=== PATIENT | male | born 1970 | race Caucasian/White ===

== ENCOUNTER 2018-07-22 18:29 | Emergency (ER) | payer OTHER, SELFPAY ==
[2018-07-22 18:57] VITALS: BP 137/84; PULSE 78; RESP 16; TEMP 36.6; O2SAT 99
[2018-07-22 19:24] LABS: Absolute Basophil Count 0.02 k/cumm (0.0-0.2); Absolute Eosinophil Count 0.16 k/cumm (0.0-0.7); Absolute Lymphocyte Count 0.74 k/cumm (1.2-3.4); Absolute Monocyte Count 0.66 k/cumm (0.11-0.7); Absolute Neutrophil Count 4.12 k/cumm (1.2-6.7); Basophils % 0.4; Eosinophils % 2.8; HCT 43.5 % (40.0-50.0); HGB 14.8 g/dL (13.5-17.5); Mean Corpuscular Hemoglobin 31.3 pg (27.0-33.0); Mean Platelet Volume 9.5 fL (8.0-11.0); Monocytes % 11.6; Neutrophils % 72.2; Platelet Count 221 x1000/uL (130-400); RBC 4.73 m/cumm (4.50-6.00); RBC Distribution Width 11.8 % (11.8-14.1)
--- NOTE | 2018-07-22 20:16 | ED.GENADUL ---
Disposition Clinical Impression: Thrombosed external hemorrhoid Disposition: HOME Condition: Stable Instructions: Hemorrhoids (ED) Additional Instructions: Take the oxycodone as needed and directed for pain. Use sitz bath as needed and directed. Take stool softeners as needed and directed. Follow-up with Dr. Polo in her office tomorrow morning at 730am for evaluation. Return to the emergency department with any worsening or new concerning symptoms. Prescriptions: Docusate Sodium [Colace] 100 mg PO BID PRN #12 cap PRN Reason: Referrals: Gris Polo MD [ [facility] STAFF PHYSICIAN] - Medical Decision Making - Lab Data Laboratory Tests 07/22/18 19:16 WBC 5.70 RBC 4.73 Hgb 14.8 Hct 43.5 MCV 92.0 MCH 31.3 MCHC 34.0 RDW 11.8 Plt Count 221 MPV 9.5 Immature Gran % 0.0 Neutrophils % 72.2 Lymphocytes % 13.0 Monocytes % 11.6 Eosinophils % 2.8 Basophils % 0.4 Absolute Neutrophils 4.12 Absolute Lymphocytes 0.74 L Absolute Monocytes 0.66 Absolute Eosinophils 0.16 Absolute Basophils 0.02 - Medical Decision Making 48 yo male status post incised hemorrhoid under local anesthesia today by Dr. Monk in the office who presents for return of hemorrhoid and worsening increase in size compared to prior to excision. Thrombosed external hemorrhoid noted which appears approximately 2 x 5 cm. There is no active bleeding. His abdomen is soft and nontender. His vitals are within normal limits. Case was discussed with Dr. Polo -she states it is unusual for a hemorrhoid to fill up again after being incised, but it could be possible or this is another hemorrhoid. Recommends sitz bath, stool softeners, pain control and will follow up with patient in the office tomorrow morning at 7:30 AM. We will also place patient on care management list to help arrange this appointment if needed. Patient was given a dose of oxycodone here and 2 tabs for home as well as prescription for oxycodone and Colace. Patient's chart noted an allergy to codeine which states was more GI upset. States he has no history of respiratory distress with codeine and he has never taken oxycodone or hydrocodone before. History of Present Illness - General Chief complaint: RashLesion Stated complaint: STATUS POST SURG TODAY/ROMERO Time Seen by Provider: 07/22/18 19:04 - History of Present Illness Initial comments: Patient is a 48-year-old male who presents for pain and swelling of hemorrhoid. Patient was seen by Dr. Monk the office today and had incision of hemorrhoid under local anesthesia. Patient states he went home and the hemorrhoid filled back up again and has worsening pain and is more swollen than from before incision. Patient denies vomiting, fever or abdominal pain. - Related Data Ibuprofen 3 tab PO Q4H PRN 02/21/16 Docusate Sodium [Colace] 100 mg PO BID PRN #12 cap 07/22/18 Acetaminophen [Tylenol] 650 mg PO Q4H PRN PRN tab 07/23/18 MetroNIDAZOLE [Flagyl] 500 mg PO TID #15 tab 07/23/18 Mineral Oil (Lax) [Mineral Oil] 30 ml PO DAILY #1 btl 07/23/18 OxyCODONE [Roxicodone] 5 mg PO Q6H PRN PRN #15 tab 07/23/18 Allergies Allergy/AdvReac Type Severity Reaction Status Date / Time codeine AdvReac Intermediate Nausea Unverified 07/23/18 07:55 meperidine HCl [From Demerol] AdvReac Intermediate Depression Unverified 07/23/18 07:55 Review of Systems Constitutional: denies: chills, fever Eyes: denies: eye pain ENT: denies: ear pain, dental pain Respiratory: denies: cough, shortness of breath Cardiovascular: denies: chest pain, dyspnea on exertion Gastrointestinal: other (Rectal pain). denies: abdominal pain, nausea, vomiting Genitourinary: denies: urgency, dysuria, frequency Musculoskeletal: denies: back pain Skin: denies: rash, lesions Neurological: denies: headache, weakness, numbness Past Medical History - Past Medical History Medical history: arthritis Surgical history: no surgical history - Social History Smoking status: never smoker Alcohol use: occasionally Drug use: none General Exam - General Limitations: no limitations General appearance: alert, in no apparent distress - Eye Eye exam: Present: EOMI - Respiratory Respiratory exam: Present: normal lung sounds bilaterally. Absent: respiratory distress, wheezes, rales, rhonchi, stridor - Cardiovascular Cardiovascular Exam: Present: regular rate, normal rhythm. Absent: bradycardia, tachycardia - GI/Abdominal GI/Abdominal exam: Present: soft, normal bowel sounds. Absent: distended, tenderness, guarding, rebound, rigid - Rectal Rectal exam: Present: other (Thrombosed external hemorrhoid approximately 2 x 5 cm noted. No active bleeding. No discharge.) - Neurological Exam Neurological exam: Present: alert, oriented X3 - Psychiatric Psychiatric exam: Present: normal affect - Skin Skin exam: Present: warm, dry, intact Course Vital Signs - 24 hr 07/22/18 18:57 Temperature 208.2 F H Pulse 78 Respiratory 16 Rate Blood Pressure 137/84 Pulse Oximetry 99
[2018-07-22] MEDS: oxyCODONE 5 MG TAB PO (20:19)
[2018-07-22] MEDS: oxyCODONE 5 MG TAB 10 MG PO (20:19)
--- NOTE | 2018-07-23 09:05 | PDOC.ERCMPRO ---
Care Management Progress Note 07/23-Dr. Chaidez requested assistance with a surgical f/u today for hemorroids. Referral faxed to [facility] this am.
--- NOTE | 2018-07-23 09:06 | CMPROGNOTE_ITS ---
Care Management Progress Note 07/23-Dr. Chaidez requested assistance with a surgical f/u today for hemorroids. Referral faxed to [facility] this am.
== END 2018-07-22 20:27 | disposition home or self-care (01) ==
PROVIDERS: Emergency Provider Physician Assistant
DX: K64.5 Perianal venous thrombosis (principal); Y84.8 Other medical procedures as the cause of abnormal reaction of the patient, or of later complication, without mention of misadventure at the time of the procedure
CPT/HCPCS: 36415; 99283; 85025

== ENCOUNTER 2018-07-23 07:35 | Day surgery (SDC) | payer OTHER, SELFPAY ==
[2018-07-23] VITALS (10 sets, daily range): BP systolic 111–122; BP diastolic 65–81; PULSE 56–91; RESP 7–16; TEMP 35.9–37.1; O2SAT 95–98
[2018-07-23] MEDS: Lactated Ringers 1,000 ML 30 ML IV (08:08)
[2018-07-23] MEDS: Lactated Ringers 1,000 ML 350 ML IV (08:41)
--- NOTE | 2018-07-23 09:27 | HEM_PTH ---
PATIENT: Jair Gruber LOC: [facility] U#:[id number] AGE/SX: 48/M ROOM: RE07/23/[address]: Vineet Lepe DO : 1970 BED: DIS: 07/23/2018 SPEC #: [id number] RECD: 07/23/18 12:43 STATUS: GREGORY REQ #: [id number] TWYLA: 07/23/18 09:[address]: Vineet Lepe DEPT: Surgical Specimen RECD BY: Angelika Hooper ENTERED: 07/23/18 12:45 SP TYPE: Hem OTHR DR: iSndy Avila APRN Tissues: 1 - HEMORRHOIDS Procedures: GROSS AND MICRO LEVEL 3 Comments: [id number]
[2018-07-23] MEDS: Bupivacaine 0.5% Pres-Free 30 ML VIAL (09:28)
--- NOTE | 2018-07-23 09:46 | PDOC.DSDIS_ITS ---
[facility] Discharge - Discharge Orders Referrals: Vineet Lepe DO [ [facility] STAFF PHYSICIAN] - 07/31/18 11:15 am Prescriptions: OxyCODONE [Roxicodone] 5 mg PO Q6H PRN PRN #15 tab PRN Reason: Pain MetroNIDAZOLE [Flagyl] 500 mg PO TID #15 tab Mineral Oil (Lax) [Mineral Oil] 30 ml PO DAILY #1 btl - Discharge Plan Activity:: see instructions Remove Dressings/Wound Care:: 24 hours Shower/Bathe:: 48 hours - Discharge Instructions Micromedex Instructions: Hemorrhoidectomy (DC)
--- NOTE | 2018-07-23 11:46 | ROE_ITS ---
REPORT OF OPERATIVE PROCEDURE DATE OF PROCEDURE July 23, 2018 PREOPERATIVE DIAGNOSIS Gangrenous thrombosed hemorrhoid. POSTOPERATIVE DIAGNOSIS Gangrenous thrombosed hemorrhoid. PROCEDURE Excision of gangrenous thrombosed hemorrhoid. SURGEON Vineet Lepe D.O. [employer] MA[employer]GER Adele Wooten PA-C ANESTHESIA Monitored Anesthesia Care by Hector Velarde C.R.N.A. with spinal anesthetic. ASA-II. Mallampati Class - 2. Local 1.3% Exparel with 0.5% Marcaine. ESTIMATED BLOOD LOSS 3 ml. SPECIMEN Hemorrhoid. INDICATIONS This is a 48-year-old male who presented to the Emergency Room on Sunday after three days of fairly constant anal pain that started on while he was straining on the toilet. He has had problems with hemorrhoids in the past, but had never had anything similar to this. He was found to have a thrombosed hemorrhoid and he was referred to Surgery. He was seen in the office, where I attempted to ameliorate his pain by incising the thrombosed hemorrhoid. We did have partial success with relief of pain, but overnight his pain became worse and the extent of thromboses seemed to be more than could be adequately treated in an office setting. It was recommended he go to Day Surgery for formal hemorrhoidectomy. The risks and benefits which were discussed with him, all of his questions were answered to his satisfaction and consent was obtained to proceed. FINDINGS A large hemorrhoid of the right anterior column was identified on examination under anesthesia, extending down from external to internal. It was subsequently excised. There was noted to be gangrene present. DESCRIPTION OF PROCEDURE The patient was brought to the preanesthesia area, identification confirmed, consent signed. He was then brought to the Operating Room. A spinal was placed by anesthesia, please see separate anesthesia report. He was then positioned prone jackknife, and sedation was titrated for effect. Appropriate timeout was taken reviewing the patient's identification, allergies, medications, and procedure. The gluteal cleft was using standard taping positioning. The perineum was then prepped with Betadine paint. Blocked draped in a standard sterile fashion. I began by performing a gentle digital rectal exam. I found only the current right anterior column thrombosed hemorrhoid. Clearly, there was a portion of the outer mucosa that had looked gangrene and necrosed due to the pressure. The hemorrhoid itself extended from mostly external component into the internal column. I then used a bullet anoscope to fully examine the anus and proximal rectum in relationship to the anus. I saw No other evidence of hemorrhoids beyond the thrombosed area. There is no significant extenuation of the internal hemorrhoid. I then proceeded to grasp the hemorrhoid with Allis clamp elevating this and then incised the skin around the base circumferentially. Once this was done, I then used a hand iConclude LigaSure to cauterize the subcutaneous tissue to limit bleeding. This left an elliptical defect approximately 4 centimeters long, extending from the anal verge down into the proximal rectum in about 1.5 cm width. I then used a #2-0 Chromic suture starting at the internal apex, sewed the defect closed to the external leaving a small portion of the external segment open for drainage. Once the wound was closed, I then injected Exparel mixed with 0.5% Marcaine circumferentially around the anus. The wound was then cleaned and I trimmed any hair surrounding the perineum to allow the area to be kept clean without matting of hair. The PeriPad was then placed and mesh underwear. The patient was awakened in the Operating Room and brought to the Postanesthesia Care Unit in good condition. There were no complications during the case. The patient tolerated it very well. All counts were reported as correct x2.
[2018-07-23] MEDS: Acetaminophen 325 MG TAB 650 MG PO (12:41)
== END 2018-07-23 13:21 | disposition home or self-care (01) ==
PROVIDERS: Visit Provider Surgery
DX: K64.5 Perianal venous thrombosis (principal); I96 Gangrene, not elsewhere classified
CPT/HCPCS: 46255; 88304; J2250; J2405; J3010

== ENCOUNTER 2021-01-20 02:19 | Outpatient (CLI) | payer BC, SELFPAY ==
--- NOTE | 2021-01-20 08:30 | DI.RAD_ITS ---
EXAM: XR ELBOW LT COMPLETE CLINICAL HISTORY: left elbow pain,M25.522. TECHNIQUE: 2D digital imaging was performed. COMPARISON: No exams were available for comparison FINDINGS: There is no evidence of fracture or joint effusion. No swelling of the olecranon bursa. Radial head appears unremarkable. Mild bilateral bony excrescences are seen it at the level of the epicondyles. May represent element of epicondylitis. Bone density is normal. No evidence of loose intra-articu lar body. IMPRESSION: DATA REPOSITORY: RADIATION DOSE DELIVERED:
== END 2021-01-20 02:20 ==
LOC: DI 02:20
DX: M25.522 Pain in left elbow (principal)
CPT/HCPCS: 73080

== ENCOUNTER 2021-06-06 13:14 | Outpatient (CLI) | payer BC, SELFPAY ==
--- NOTE | 2021-06-06 16:00 | DI.RAD_ITS ---
Exam(s) XR KNEE RT 3V AP,LAT,ADALGISA EXAM: XR KNEE RT 3V AP,LAT,ADALGISA CLINICAL HISTORY: right knee pain M25.561. TECHNIQUE: 2D digital imaging was performed. COMPARISON: No exams were available for comparison FINDINGS: BONES: No acute fracture is present. No bony destructive lesion is seen. Mild periarticular spurring. JOINTS: The knee is normally aligned. Moderate effusion. SOFT TISSUE: Unremarkable IMPRESSION: Joint effusion. Mild degenerative changes.. DATA REPOSITORY: RADIATION DOSE DELIVERED:
== END 2021-06-06 13:34 ==
PROVIDERS: Visit Provider Nurse Practitioner Family
DX: M25.561 Pain in right knee (principal); M25.461 Effusion, right knee; M17.11 Unilateral primary osteoarthritis, right knee
CPT/HCPCS: 73562

== ENCOUNTER 2021-09-20 00:20 | Outpatient (CLI) | payer BC, SELFPAY ==
--- NOTE | 2021-09-20 08:45 | DI.MRI_ITS ---
Exam(s) MR LOWER JOINT RT WO EXAM: MR LOWER JOINT RT WO CLINICAL HISTORY: Persistent pain, mechanical SYMPTOMS,INTERNAL DERANGEMENT RT KNEE, M23.91, TECHNIQUE: Multiplanar multisequence MRI of the knee was performed. COMPARISON: No exams were available for comparison FINDINGS: EFFUSION: There is a small knee joint effusion. There is no Rangel cyst in the popliteal fossa. MARROW:There is no evidence of fracture, bone contusion, nor osteochondral defects.. There are no si gnificant osseous lesions. PATELLOFEMORAL COMPARTMENT: The quadriceps tendon is intact. The patellar ligament is intact. There is no significant thinning of the retropatellar cartilage. No evidence of fissure nor signific ant chondral defect. No osteochondral defect at this level.There is no intraosseous signal to sugges t recent patellar dislocation. There are no patellar retinacular tears. CRUCIATE LIGAMENTS: The anterior cruciate ligament is intact.The posterior cruciate ligament is intac t. MEDIAL COMPARTMENT/MEDIAL MENISCUS: Oblique tear posterior horn medial meniscus. Anterior horn appea rs mildly extruded.. There are no chondral defects, osteochondral defects, subarticular marrow edema, nor osteophytes evid ent. MEDIAL COLLATERAL LIGAMENT: Intact LATERAL COMPARTMENT/LATERAL MENISCUS: There is no evidence of lateral meniscal tear.There are no lora dral defects, osteochondral defects, subarticular marrow edema, nor osteophytes evident. ILIOTIBIAL BAND: Intact LATERAL COLLATERAL LIGAMENT COMPLEX: The fibular collateral ligament is intact. The biceps femoris t endon is intact.Popliteus muscle and tendon are intact. IMPRESSION: 1. There is a tear of the posterior horn of the medial meniscus. There are no tears of the lateral m eniscus. 2. Cruciate and collateral ligaments are intact. 3. No abnormal intraosseous signal. 4. Small joint effusion. No Rangel cyst. DATA REPOSITORY:
--- NOTE | 2021-09-20 19:35 | DI.VRAD_ITS ---
PROCEDURE INFORMATION: Exam: MR Right Lower Extremity Joint Without Contrast, Knee Exam date and time: 09/20/2021 3:39 PM Age: 51 years old Clinical indication: Other: Persistent pain, mechanical symptoms, internal derangement RT knee TECHNIQUE: Imaging protocol: MR of the Right lower extremity joint without contrast. Exam focused on the knee. COMPARISON: CR XR KNEE RT 3V AP,LAT,ADALGISA 06/06/2021 4:31 PM FINDINGS: Bones and cartilage: Unremarkable. No bone marrow abnormalities. Articular cartilage intact. Joint spaces: Trace joint effusion. Medial meniscus: There is horizontal signal within the posterior horn of the medial meniscus which extends to the tibial articular surface at the posterior horn/body junction, compatible with a medial meniscal tear. Lateral meniscus: Unremarkable. No tear. Anterior cruciate ligament: Unremarkable. No tear. Posterior cruciate ligament: Unremarkable. No tear. Medial capsule and supporting structures: Unremarkable. No tear. Lateral capsule and supporting structures: Unremarkable. No tear. Extensor mechanism of knee: Unremarkable. No tear. Muscles: Unremarkable. Soft tissues: Unremarkable. IMPRESSION: Tear of the posterior horn of the medial meniscus. Dictated and Authenticated by: Vijay Sheth MD. Ordering:LIAT Hargrove MD
== END 2021-09-20 00:40 ==
PROVIDERS: Visit Provider Student in an Organized Health Care Education/Training Program
DX: M25.561 Pain in right knee (principal); M23.8X1 Other internal derangements of right knee; S83.241A Other tear of medial meniscus, current injury, right knee, initial encounter; M25.461 Effusion, right knee
CPT/HCPCS: 73721

== ENCOUNTER → 2021-09-26 22:16 | Outpatient (CLI) | payer OTHER, BC, SELFPAY ==
--- NOTE | 2021-09-26 16:00 | DI.RAD_ITS ---
Exam(s) XR HAND RT COMPLETE EXAM: XR HAND RT COMPLETE CLINICAL HISTORY: pain,swelling,decreased ROM/no trauma M79.641 PAIN RT HAND TECHNIQUE: COMPARISON: No exams were available for comparison FINDINGS: Three views were obtained. No bony or soft tissue abnormality is seen apart from minimal degenerativ e changes of the carpus and IP joints.. IMPRESSION: RADIATION DOSE DELIVERED: Total DLP
--- NOTE | 2021-09-26 16:00 | DI.RAD_ITS ---
Exam(s) XR WRIST RT COMPLETE EXAM: XR WRIST RT COMPLETE CLINICAL HISTORY: pain,swelling,decreased ROM/ no trauma M25.531 PAIN RT WRIST TECHNIQUE: COMPARISON: No exams were available for comparison FINDINGS: Three views were obtained. Carpal alignment appears within normal limits. No bony or soft tissue ab normality seen. IMPRESSION: RADIATION DOSE DELIVERED: Total DLP
--- NOTE | 2021-09-26 16:45 | DI.VRAD_ITS ---
PROCEDURE INFORMATION: Exam: XR Right Wrist Exam date and time: 09/26/2021 4:06 PM Age: 51 years old Clinical indication: Pain, swelling, decreased rom/no trauma m79.641 pain RT hand TECHNIQUE: Imaging protocol: XR Right wrist. Views: 3 or more views. COMPARISON: MRI R UPPER JOINT WO CONT 10/20/2014 3:33 PM FINDINGS: Bones/joints: No acute fracture. No dislocation. The alignment appears anatomic. No evidence of significant degenerative joint disease. Soft tissues: Normal. IMPRESSION: No acute findings. Dictated and Authenticated by: Jeanna Damian MD. Ordering:JUN Castillo MD
--- NOTE | 2021-09-26 16:54 | DI.VRAD_ITS ---
PROCEDURE INFORMATION: Exam: XR Right Hand Exam date and time: 09/26/2021 4:06 PM Age: 51 years old Clinical indication: Right; Patient HX: Pain, swelling, decreased rom/no trauma m79.641 pain RT hand TECHNIQUE: Imaging protocol: XR Right hand. Views: 3 or more views. COMPARISON: MRI R UPPER JOINT WO CONT 10/20/2014 3:33 PM FINDINGS: Bones/joints: Normal. Soft tissues: Normal. IMPRESSION: No acute findings. Dictated and Authenticated by: Jeanna Damian MD. Ordering:JUN Castillo MD
== END ==
PROVIDERS: Visit Provider Family Medicine
DX: M25.531 Pain in right wrist (principal); M79.641 Pain in right hand
CPT/HCPCS: 73110; 73130

== ENCOUNTER 2022-01-18 01:16 | Outpatient (CLI) | payer BC, SELFPAY ==
[2022-01-18 11:49] LABS: Source Nasal/Nares
[2022-01-18 16:03] LABS: COVID-19 PCR Negative (Negative)
== END 2022-01-18 01:17 | disposition home or self-care (01) ==
PROVIDERS: Visit Provider Student in an Organized Health Care Education/Training Program
DX: Z20.822 Contact with and (suspected) exposure to COVID-19 (principal)
CPT/HCPCS: 87635

== ENCOUNTER 2022-01-20 08:07 | Day surgery (SDC) | payer BC, SELFPAY ==
[2022-01-20] VITALS (8 sets, daily range): BP systolic 109–141; BP diastolic 72–96; PULSE 53–74; RESP 12–16; TEMP 36–36.5; O2SAT 96–100; BMI 23.6
[2022-01-20] MEDS: Lactated Ringers 1,000 ML 100 ML IV (08:54)
--- NOTE | 2022-01-20 09:37 | ANES.PREOP_ITS ---
General Info Date of Service Date Performed: 01/20/22 Height: 6 ft Weight: 79 kg Body Mass Index (BMI): 23.6 Surgical Procedure: Operation Date: 01/20/22 10:10 Proposed Procedure Side Surgeon p Knee Arthroscopy w/any indicated meniscal, chondral and synovial surgery Right Delvin Horowitz MD Meds Allergies and Home Medications Allergies Allergy/AdvReac Type Severity Reaction Status Date / Time codeine AdvReac Intermediate Nausea Verified 12/28/21 14:00 meperidine HCl [From Demerol] AdvReac Intermediate Depression Verified 12/28/21 14:00 Home Medication Medication Instructions Recorded bupropion HCl 300 mg 24 hr tablet, 300 mg PO QAM 10/10/18 extended release meloxicam 15 mg tablet 15 mg PO DAILY #30 tab 11/30/21 Current Visit Medications: Current Medications Generic Name Dose Route Start Last Admin Trade Name Freq PRN Reason Stop Dose Admin Ringer's Solution 1,000 mls @ 100 mls/hr 01/20/22 06:00 01/20/22 08:54 IV 02/18/22 23:59 100 mls/hr INFUSION SARAH Administration Cefazolin Sodium/Dextrose 2 gm in 50 mls @ 100 mls/hr 01/20/22 06:00 Ancef Duplex IVPB 01/20/22 16:00 PREOP SARAH IV Miscellaneous Supplies 1 each 01/20/22 06:00 Iv Access IV 02/18/22 23:59 DIRECTED SARAH Naproxen 250 - 500 mg 01/20/22 07:20 Naproxen 500 Mg Tab PO BID PRN PRN Oxycodone HCl 5 - 10 mg 01/20/22 07:20 Oxycodone 5 Mg Tab PO Q4H PRN PRN Sodium Chloride 0 ml 01/20/22 06:00 Normal Saline Flush 10 Ml Syr IV 02/18/22 23:59 PRN PRN Sodium Chloride 0 ml 01/20/22 06:00 Normal Saline 10 Ml Vial IJ 02/18/22 23:59 DIRECTED PRN Sterile Water 0 ml 01/20/22 06:00 Water,Injection,Sterile 10 Ml Vial IJ 02/18/22 23:59 DIRECTED PRN PFSH Active Problems Active Problems: Problem Status Onset Code Dermatitis 01/17/18 L30.9 Depression F32.9 Right ankle pain M25.571 Left elbow pain M25.522 Pain in right hand M79.641 Pain in right wrist M25.531 Carpal tunnel syndrome of right wrist G56.01 Trigger finger of right hand M65.30 Acute medial meniscus tear of right knee ~05/2021 S83.241A Medical History Medical History PTSD (post-traumatic stress disorder) Medical History Comments:: Gold fillings in upper teeth. Pt reports getting a headache with anesthesia Surgical History Surgical History Hemorrhoidectomy (07/23/18) thrombosed,gangrenous History of incision and drainage right hand History of open reduction and internal fixation (ORIF) procedure right middle finger Tobacco Smoking/Tobacco Use Status: Former Tobacco Use Passive smoking exposure: Yes Alcohol Alcohol Intake: current Alcohol intake frequency: holidays/special occasions only Alcohol type: hard liquor Substance Use Substance use: Never Substance use type: does not use Vital Signs and Lab Results Vital Signs Most Recent Vital Signs in EMR: Most Recent Vital Signs Temp Pulse Resp BP Pulse Ox 36.4 C L 74 16 112/82 99 01/20/22 08:18 01/20/22 08:18 01/20/22 08:18 01/20/22 08:18 01/20/22 08:18 Lab Results Blood Type / Crossmatch: No Data to Display Complete Blood Count: No Data to Display Complete Metabolic Panel: No Data to Display Liver Function Panel: No Data to Display Coagulation Panel: No Data to Display Cardiac Panel: No Data to Display Arterial Blood Gas: No Data to Display Venous Blood Gas: No Data to Display Pancreas Panel: 2 No Data to Display Thyroid Panel: No Data to Display Infectious Disease: Coronavirus (COVID-19)(PCR) Negative (Negative) 01/18/22 08:37 01/18/22 Coronavirus 2019 Source Nasal/Nares 01/18/22 08:37 01/18/22 Blood Cultures: No Data to Display Toxicology Panel: No Data to Display Anesthesia Assessment and Plan Anesthesia History Personal History: Other (Headache) Family History: No Family History of Anesthesia Complications Exercise Tolerance Exercise Tolerance: Metabolic Equivalents>4 Pertinent Negatives Pertinent Negatives: No Symptoms of GERD, No Major Cardiovascular Symptoms or Complaints and No Major Pulmonary Symptoms or Complaints Cardiac & Pulmonary Exam Cardiac Exam: Normal S1/S2 Heart Sounds Pulmonary Exam: Clear Bilateral Breath Sounds Implantable Cardiac Device Does patient have a Pacemaker or an ICD?: No Airway Exam Known Difficult Airway: No Mallampati Class: 3 Mouth Opening: Normal (> 3cm) Thyromental Distance: Greater than 3 cm Facial Hair: Full Bains Neck Range of Motion: Full ROM Neck Circumference: Normal Teeth Condition: Normal Dentition ASA Classification ASA Score: ASA 2 Emergency Case?: No NPO Status NPO Status: NPO Clears >2 hours, Solids >8 hours Anesthesia Plan Resuscitation Status: Full Code Anesthesia Technique: General Anesthesia Airway Planned: LMA Monitors Used: Standard Monitors
[2022-01-20] MEDS: ceFAZolin 2 GM/50 ML BAG IVPB (10:15)
[2022-01-20] MEDS: MORPHine 4 MG/ML SYR (10:41)
[2022-01-20] MEDS: Bupivacaine 0.25% Pres-Free 30 ML VIAL (10:41)
--- NOTE | 2022-01-20 11:22 | W.PM.DSUDISC ---
Discharge Plan Disposition Patient Disposition: HOME Condition: Stable Discharge Details Reason For Visit: Right knee surgery Attending Provider: Delvin Horowitz Primary Care Provider: Sindy Avila Home Meds and New Rx's Prescriptions: New naproxen 250 mg tablet 250 - 500 mg PO BID PRNQty: 40 0RF Rx Instructions: take with a meal aspirin 81 mg tablet,delayed release (DR/EC) 81 mg PO DAILY 14 Days Qty: 14 0RF oxycodone 5 mg tablet 5 - 10 mg PO Q4H MDD 30 mg PRN (Reason: moderate to severe pain) Qty: 18 0RF Continued bupropion HCl 300 mg tablet extended release 24 hr 300 mg PO QAM 0RF meloxicam 15 mg tablet 15 mg PO DAILY Qty: 30 6RF Discharge Instructions Additional Instructions: Surgery: Right knee arthroscopy with partial medial & lateral meniscectomy and synovectomy Activity: Weightbearing as tolerated. Advance range of motion as comfort allows. No knee brace or crutches needed as soon as comfortable. Recommend avoiding sports, pivoting, and squatting for 6-8 weeks. A physical therapy prescription will be sent electronically to start in about 3 weeks. Prescriptions: Aspirin 81 mg take 1 daily to prevent a blood clot for 14 days Naproxen 250 mg take 1-2 every 12 hours with a meal as needed for moderate pain Oxycodone 5 mg take 1-2 every 4-6 hours as needed for severe pain You may use [id number] Tylenol (acetaminophen) as needed for mild pain. These pain medications may be taken all at once or in different combinations as needed. Also, recommend Colace (docusate) as a stool softener as surgery and pain medicine cause constipation. Dressings: Leave dressing in place for 3 days. May then remove and leave open to air or cover incisions with Band-Aids. May shower after 5 days. Follow-up: 10-[address] Horowitz Let us know right away if you develop any redness, drainage, fevers, chest pain, or trouble breathing. Do not drink alcohol or drive for at least 24 hours after anesthesia. Please call the office during business hours with any questions or concerns. Referrals: Delvin Horowitz MD [ [facility] STAFF PHYSICIAN] - Discharge Orders Discharge Orders: Discharge Order (Routine); Ordered 01/20/22 Ordered By: Delvin Horowitz DS: Diagnosis Discharge Diagnosis (1) Acute medial meniscus tear of right knee: Status: Acute
--- NOTE | 2022-01-20 11:26 | W.PM.OP ---
Date of service: 01/20/22 Time of Service: 09:55 Operative Note Operative Note DATE OF PROCEDURE: 01/20/22 PRE-OP DIAGNOSIS: Right knee 1. Medial meniscus tear POST-OP DIAGNOSIS: same Right knee 1. Medial meniscus tear 2. Synovitis PROCEDURE: Right knee 1. Partial medial & lateral meniscectomy, CPT #82074 2. Greater than 2 compartment synovectomy, CPT #61045: Anteromedial, anterolateral, intercondylar, and patellofemoral SURGEON: Delvin Horowitz SUPERVISOR [place]: None None ANESTHESIA TYPE: Local By Surgeon and General LMA/ETT Refer to Anesthesia Record PATHOLOGY: none sent TOURNIQUET TIME: 0 COMPLICATIONS: None Patient was transported to: PACU Patient's condition: stable Indications: Please see complete medical record for details. Findings: Exam under anesthesia: Full range of motion with hyperextension and no instability Arthroscopic findings: Significant synovitis anteromedial, anterolateral, intercondylar, and patellofemoral. Mild to moderate chondromalacia distal lateral aspect medial femoral condyle. Parrot-beak type displaced posterior horn medial meniscus tear without significant root involvement. Some extension into the posterior horn and at the posterior horn body junction into the white-red zone. Moderate fraying posterior horn lateral meniscus tear. Procedure Description: In the operating room, genral anesthesia was induced. The patient was positioned supine on the operating room table. All bony prominences were well-padded. Preoperative antibiotics were administered. The knee was prepped and draped in the usual sterile fashion. The correct patient, procedure, and side of the procedure were all verified prior to incision. Exam under anesthesia was performed. 10 cc of 0.25% bupivacaine and 1.5% lidocaine with epinephrine was infiltrated about the planned anteromedial and anterolateral knee arthroscopy portals. The portals were established and a complete diagnostic arthroscopy was performed with relevant findings detailed above. The mechanical shaver was used to remove abundant pathologic synovium from the anteromedial, anterolateral, intercondylar, and patellofemoral compartments. Using a combination of hand instruments including meniscal biters and a power shaver and working through the anteromedial and anterolateral compartments the posterior horn medial meniscus meniscus was debrided of all torn tissue to a stable margin. Care was taken to preserve as much meniscus tissue was possible. The meniscal remnant was probed and found to have a stable margin, stable root, and no other tears. The shaver was all that was needed to debride the posterior lateral meniscus fraying and tearing to a stable margin as well. Under direct arthroscopic visualization an 18-gauge needle was passed into the knee from superolateral into the suprapatellar pouch. The knee was copiously irrigated with arthroscopic fluid until there was a clear effluent before being drained of all fluid. The anteromedial and anterolateral portals were closed in 3-0 Monocryl in a buried interrupted fashion. 20 cc of 0.25% bupivacaine with epinephrine containing 4 mg of morphine was infiltrated into the knee through the previously placed needle. Mastisol, Steri-Strips, and 4 x 4 gauze were applied over the incisions followed by sterile soft roll. The knee was then wrapped gently with an GUSTAVO comressive bandage. The patient awoke from anesthesia without complication and was transferred to the recovery room in a stable condition.
[2022-01-20] MEDS: fentaNYL 100 MCG/2 ML VIAL IVP ×3 (11:55→12:05)
--- NOTE | 2022-01-20 13:14 | W.ANESPOSTOP ---
Postoperative Evaluation Date, Time and Location Date Performed: 01/20/22 Time Performed: 13:14 Patient Location: Day Surgery Unit Vital Signs Most Recent Imported Vital Signs: Most Recent Vital Signs Temp Pulse Resp BP Pulse Ox 36 C L 66 16 109/75 97 01/20/22 12:58 01/20/22 12:58 01/20/22 12:58 01/20/22 12:58 01/20/22 12:58 Pain Score Most Recent Pain Score: Most Recent Pain Score Pain Level 3 01/20/22 12:58 Assessment Mental Status: Awake (Alert & Oriented to Patient Baseline) Airway and Respiratory Function: Patent airway with normal (patient baseline) respiratory exam Cardiovascular Function: Hemodynamically Stable Hydration Status: Adequately Hydrated Nausea & Vomiting: No Nausea or Vomiting Pain: Pain is tolerable per patient Peripheral Nerve Block: Patient did not receive a nerve block
== END 2022-01-20 13:50 | disposition home or self-care (01) ==
LOC: SUR 08:07
PROVIDERS: Visit Provider Student in an Organized Health Care Education/Training Program
PROC: (CPT 29870; principal; 2022-01-20 10:00)
DX: S83.241A Other tear of medial meniscus, current injury, right knee, initial encounter (principal); S83.281A Other tear of lateral meniscus, current injury, right knee, initial encounter; X58.XXXA Exposure to other specified factors, initial encounter; M94.261 Chondromalacia, right knee; M65.861 Other synovitis and tenosynovitis, right lower leg
CPT/HCPCS: 29876; 29880; J0690; J1100; J1885; J2270; J2405; J2704; J3010

== ENCOUNTER 2022-04-07 11:53 | Day surgery (SDC) | payer BC, SELFPAY ==
--- NOTE | 2022-04-06 16:44 | COLE_ITS ---
Colonoscopy Report Date of procedure: 04/07/22 Pre-op diagnosis general: Screening Post-op diagnosis procedure note: other (diverticula) Surgeon: Adele Kurtz Anesthesia Type: General:No Airway Estimated blood loss (mL): 0 Pathology: none sent Complications: None Disposition: same day Prep: Miralax/Dulcolax Retraction Time: 8 Procedure Description: After informed consent was obtained the patient was taken to the procedure room and placed in a left decubitous position. Monitors were applied and a time out was done. The patients name, date of , procedure, allergies to medications and metal in their body was reviewed. The patient was then sedated. Once sedate d and comfortable a rectal exam was done. External exam was normal. Internal exam revealed a normal sphincter tone and no palpable masses. The prostate nl. The scope was then introduced and retrofelexed. No internal hemorrhoids were identified. The scope was then advanced to the cecum w/out difficulty. The TI and appendiceal orifice were identified. The prep was be BPS 3 in all segments for a total of 9 the scope was then slowly retracted over 8 minutes back into the rectum. He had very minor disease confined to the sigmoid colon. The mucosa is otherwise pink and healthy with a normal vascular pattern. Scope was removed and the patient was woken up and taken back to Same day surgery in stable condition. The patient tolerated the procedure well and there were no immediate co mplications. Follow up: The patient should follow up in 10 years unless they develop changes in bowel habits or other new gastrointestinal complaints.
--- NOTE | 2022-04-06 16:44 | PDOC.DSDIS_ITS ---
Discharge Plan Disposition Patient Disposition: HOME Condition: Good Discharge Details Reason For Visit: Colon cancer screening Attending Provider: Adele Kurtz Primary Care Provider: Sindy Avila Home Meds and New Rx's Prescriptions: Continued bupropion HCl 300 mg tablet extended release 24 hr 300 mg PO QAM ascorbic acid (vitamin C) 500 mg tablet 1,000 mg PO DAILY meloxicam 15 mg tablet 15 mg PO DAILY Qty: 90 2RF Discontinued polyethylene glycol 3350 17 gram/dose powder 238 g PO ONCE Qty: 238 0RF Rx Instructions: take per colonoscopy instructions bisacodyl [Dulcolax (bisacodyl)] 5 mg tablet,delayed release (DR/EC) 5 mg PO ONCE Qty: 4 0RF Rx Instructions: take per colonoscopy instructions Discharge Instructions Additional Instructions: [facility] Colonoscopy Post- Op Instructions Instructions for Everyone who is given Anesthesia: For your safety, please do the following for the next twenty-four (24) hours: *Do Not operate a motor vehicle (car, truck, motorcycle, etc.) *Do Not drink alcoholic beverages or use any recreational drugs for the first 24 hours or while taking pain medications. The medications in your body may have a reaction that can be dangerous. *Do Not make any important decisions or sign any important papers. Findings: small polyps Follow up: My office will send you a letter in 2 to 3 weeks time, detailing as to what type of polyps they are, and when we want you to repeat the colonoscopy. 1. No lifting over 20 pounds or strenuous activity for the first 24 hours after your procedure. After 24 hours there are no restrictions on your activity but you may feel fatigued for a few days. 2. After you arrive home you may have a light meal and return to your normal diet as you can tolerate it without feeling sick to your stomach. 3. You may have a bloated, gaseous feeling in your belly (abdomen) after a col onoscopy. Passing gas and belching will help. Walking or lying down on your left side with your knees flexed may relieve the discomfort. Call the office at [phone] (Office) or [phone] (Hospital) right away if you notice any of the following: a.Vomiting of blood or ?coffee ground stools?. b.Rectal bleeding 1Tbsp, blood clots or continuous bleeding. c.Severe belly (abdominal) pain. d.A hard distended belly (abdomen) and an inability to pass gas. 4. Please don?t expect to have a normal BM (bowel movement) for 2-3 days after your procedure. 5. If there are questions regarding the findings of your procedure, please contact your doctor 6. If you are unable to contact your doctor with a problem, contact the hospital at [phone]. 7. Continue all your regular medications unless directed otherwise. I understand the above instructions and have no questions. Signature of Patient or Adult Escort Name of Responsible Adult Escort Signature of Nurse Date/Time Activity:: See above Diet:: See above Discharge Orders Discharge Orders: Discharge Order (Routine); Ordered 04/06/22 Ordered By: Adele Kurtz
[2022-04-07 12:03] VITALS: BP 116/86; PULSE 73; RESP 18; TEMP 36.6; O2SAT 97
--- NOTE | 2022-04-07 12:14 | W.ANESPRE ---
General Info Date of Service Date Performed: 04/07/22 Height: 5 ft 11 in Weight: 77.5 kg Body Mass Index (BMI): 23.8 Surgical Procedure: Operation Date: 04/07/22 13:05 Proposed Procedure Side Surgeon sakina Kurtz, DO Meds Allergies and Home Medications Allergies Allergy/AdvReac Type Severity Reaction Status Date / Time codeine AdvReac Intermediate Nausea Verified 04/07/22 12:14 meperidine HCl [From Demerol] AdvReac Intermediate Depression Verified 04/07/22 12:14 Home Medication Medication Instructions Recorded bupropion HCl 300 mg 24 hr tablet, 300 mg PO QAM 10/10/18 extended release meloxicam 15 mg tablet 15 mg PO DAILY #90 tabs 02/07/22 ascorbic acid (vitamin C) 500 mg 1,000 mg PO DAILY 03/24/22 tablet Current Visit Medications: Current Medications Generic Name Dose Route Start Last Admin Trade Name Freq PRN Reason Stop Dose Admin Ringer's Solution 1,000 mls @ 80 mls/hr 04/07/22 06:00 IV 05/06/22 23:59 INFUSION SARAH IV Miscellaneous Supplies 1 each 04/07/22 06:00 Iv Access IV 05/06/22 23:59 DIRECTED SARAH Ondansetron HCl 4 mg 04/06/22 16:32 Ondansetron 4 Mg/2 Ml Vial IVP Q4H PRN PRN Nausea / Vomiting Sodium Chloride 0 ml 04/07/22 06:00 Normal Saline Flush 10 Ml Syr IV 05/06/22 23:59 PRN PRN Sodium Chloride 0 ml 04/07/22 06:00 Normal Saline 10 Ml Vial IJ 05/06/22 23:59 DIRECTED PRN Sterile Water 0 ml 04/07/22 06:00 Water,Injection,Sterile 10 Ml Vial IJ 05/06/22 23:59 DIRECTED PRN PFSH Active Problems Active Problems: Problem Status Onset Code Dermatitis 01/17/18 L30.9 Depression F32.9 Right ankle pain M25.571 Left elbow pain M25.522 Pain in right hand M79.641 Pain in right wrist M25.531 Carpal tunnel syndrome of right wrist G56.01 Trigger finger of right hand M65.30 Acute medial meniscus tear of right knee ~05/2021 S83.241A Medical History Medical History History of broken leg PTSD (post-traumatic stress disorder) Per pt. announce self if patient is asleep before touching Medical History Comments:: Gold fillings in upper teeth. Pt reports getting a headache with anesthesia Surgical History Surgical History Hemorrhoidectomy (07/23/18) thrombosed,gangrenous History of incision and drainage right hand History of open reduction and internal fixation (ORIF) procedure right middle finger Tobacco Smoking/Tobacco Use Status: Former Tobacco Use Passive smoking exposure: Yes Alcohol Alcohol Intake: current Alcohol intake frequency: holidays/special occasions only Alcohol type: hard liquor Substance Use Substance use: Never Substance use type: does not use Vital Signs and Lab Results Vital Signs Most Recent Vital Signs in EMR: Most Recent Vital Signs Temp Pulse Resp BP Pulse Ox 36.6 C 73 18 116/86 97 04/07/22 12:03 04/07/22 12:03 04/07/22 12:03 04/07/22 12:03 04/07/22 12:03 Lab Results Blood Type / Crossmatch: No Data to Display Complete Blood Count: No Data to Display Complete Metabolic Panel: No Data to Display Liver Function Panel: No Data to Display Coagulation Panel: No Data to Display Cardiac Panel: No Data to Display Arterial Blood Gas: No Data to Display Venous Blood Gas: No Data to Display Pancreas Panel: No Data to Display Thyroid Panel: No Data to Display Infectious Disease: No Data to Display Blood Cultures: No Data to Display Toxicology Panel: No Data to Display Anesthesia Assessment and Plan Anesthesia History Personal History: No History of Anesthesia Complications Family History: No Family History of Anesthesia Complications Exercise Tolerance Exercise Tolerance: Metabolic Equivalents>4 Cardiac & Pulmonary Exam Cardiac Exam: Normal S1/S2 Heart Sounds Pulmonary Exam: Clear Bilateral Breath Sounds Implantable Cardiac Device Does patient have a Pacemaker or an ICD?: No Airway Exam Known Difficult Airway: No Mallampati Class: 3 Mouth Opening: Normal (> 3cm) Thyromental Distance: Greater than 3 cm Neck Range of Motion: Full ROM Neck Circumference: Normal Teeth Condition: Normal Dentition ASA Classification ASA Score: ASA 2 Emergency Case?: No NPO Status NPO Status: NPO Clears >2 hours, Solids >8 hours Anesthesia Plan Resuscitation Status: Full Code Anesthesia Technique: General Anesthesia Airway Planned: Natural Airway Monitors Used: Standard Monitors Preoperative Comments:: 52 yo male for screening colonoscopy. Sig PMHx: PTSD, former smoker, occ EtOH. Previous Anes: LMA 5 states extremely sore throat for 4 days.
[2022-04-07 12:21] VITALS: BMI 23.8
[2022-04-07] MEDS: Lactated Ringers 1,000 ML 80 ML IV (12:22)
[2022-04-07 13:42] VITALS: BP 97/68; PULSE 71; RESP 94; TEMP 36.9; O2SAT 94
--- NOTE | 2022-04-07 13:53 | W.ANESPOSTOP ---
Postoperative Evaluation Date, Time and Location Date Performed: 04/07/22 Time Performed: 12:54 Patient Location: Day Surgery Unit Vital Signs Most Recent Imported Vital Signs: Most Recent Vital Signs Temp Pulse Resp BP Pulse Ox 36.9 C 71 94 H 97/68 L 94 04/07/22 13:42 04/07/22 13:42 04/07/22 13:42 04/07/22 13:42 04/07/22 13:42 Pain Score Most Recent Pain Score: Most Recent Pain Score Pain Level 0 04/07/22 12:03 Assessment Mental Status: Awake (Alert & Oriented to Patient Baseline) Airway and Respiratory Function: Patent airway with normal (patient baseline) respiratory exam Cardiovascular Function: Hemodynamically Stable Hydration Status: Adequately Hydrated Nausea & Vomiting: No Nausea or Vomiting Pain: Pt. Denies Any Pain Peripheral Nerve Block: Patient did not receive a nerve block
[2022-04-07 14:02] VITALS: BP 103/72; PULSE 60; RESP 17; TEMP 36.6; O2SAT 96
== END 2022-04-07 14:40 | disposition home or self-care (01) ==
PROVIDERS: Visit Provider Surgery
PROC: 0DJD8ZZ Inspection of Lower Intestinal Tract, Via Natural or Artificial Opening Endoscopic (ICD-10-PCS; CPT 45378; principal; 2022-04-07 13:00)
DX: Z12.11 Encounter for screening for malignant neoplasm of colon (principal); F43.10 Post-traumatic stress disorder, unspecified; Z87.891 Personal history of nicotine dependence
CPT/HCPCS: 45378

== ENCOUNTER 2022-04-30 11:11 | Emergency (ER) | payer BC, SELFPAY ==
[2022-04-30 11:17] VITALS: BP 145/83; PULSE 54; RESP 16; TEMP 36.4; O2SAT 99
--- NOTE | 2022-04-30 11:27 | ED.GENADUL_ITS ---
Discharge Plan Disposition Patient Disposition: HOME Condition: Stable Discharge Details Clinical Impression: Left ureteral stone Primary Care Provider: Sindy Avila ED Provider: Mariaelena Chaidez Home Meds and New Rx's Prescriptions: New tamsulosin [Flomax] 0.4 mg capsule 0.4 mg PO DAILY Qty: 10 0RF ondansetron 4 mg tablet,disintegrating 4 mg PO TID PRN (Reason: nausea and vomiting) Qty: 6 0RF oxycodone 5 mg tablet 5 mg PO Q6H PRN (Reason: pain) Qty: 10 0RF Continued bupropion HCl 300 mg tablet extended release 24 hr 300 mg PO QAM ascorbic acid (vitamin C) 500 mg tablet 1,000 mg PO DAILY meloxicam 15 mg tablet 15 mg PO DAILY Qty: 90 2RF Discharge Instructions Instructions: Kidney Stones (ED), How to Strain Your Urine (ED) Additional Instructions: Your CT scan today showed evidence of a 2 mm kidney stone located near your bladder. You are being sent home with a strainer to strain your urine to observe for passage of your stone. Drink plenty of fluids and get plenty of rest. Prescriptions for Flomax, oxycodone and Zofran were sent electronically to your pharmacy. Take Flomax daily as directed. Take the Zofran as needed and directed for nausea and vomiting. Alternate tylenol and motrin as needed and directed for pain. Take the oxycodone for pain not relieved with Tylenol or Motrin. You have been placed on urology follow-up list for reevaluation of your kidney stones. Return immediately to the emergency department if you develop any worsening or new concerning symptoms such as fever, difficulty urinating, worsening pain or any other concerns. Referrals: Derek Koo MD [ [facility] STAFF PHYSICIAN] - Discharge Data Discharge Date/Time-TO BE ENTERED AT DEPARTURE: 04/30/22 15:25 Discharge Physician: Mariaelena Chaidez Medical Decision Making 1130 -- 52-year-old male with a history of kidney stones presents with diffuse burning abdominal pain, worse in the suprapubic region with urinary urgency and frequency that started a few hours ago. Patient appears uncomfortable but nontoxic. He is afebrile. His abdomen is diffusely tender extending from the epigastrium down to the suprapubic region. He has bilateral testicular tenderness without edema or ecchymosis. No genital lesions noted. He has no rigidity or guarding. Differential diagnosis includes kidney stone, UTI, pyelonephritis. We will place an IV, bolus IV fluids, screening labs, urinalysis, CT renal colic and give a dose of IV Dilaudid and IV Zofran and reassess. This patient was evaluated during a time of global shortage of iodinated contrast media. Based on guidance from the [employer], best practices, and local institutional approaches, an alternative path for evaluating and managing the patient may have been employed in order to provide optimal care during this shortage. The current situation has been discussed with the patient. 1300 --patient reassessed and his pain is slightly improved but still present and with nausea. CT imaging notes a 2 mm stone with mild hydroureteronephrosis. We will give another liter IV fluids, Dilaudid and Toradol IV and a dose of Phenergan and reassess. 1430 --patient feels much better and feels good to go home. We will send with oxycodone 4 tab bottle in addition to prescriptions for Flomax, Zofran and oxycodone. He was placed on urology follow-up list. Usual and customary return precautions given prior to discharge. Medical Records Medical records reviewed: Yes I reviewed the patient's medical records. Imaging Data Radiologic Study: Radiologist's impression: CT Abdomen And Pelvis Without Contrast Exam date and time: 04/30/2022 12:08 PM Age: 52 years old Clinical indication: Other: Difficulty urinating, diffuse abd pain R/O renal stone, pyelonephritis TECHNIQUE: Imaging protocol: Computed tomography of the abdomen and pelvis without contrast. COMPARISON: None provided. FINDINGS: Limitations: Evaluation of the solid and vascular structures is somewhat limited by lack of IV contrast. Lungs: The visualized lung bases demonstrate minor dependent atelectasis. Diaphragm: There is a small hiatal hernia. Liver: Grossly unremarkable. Gallbladder and bile ducts: No gallstones are evident, but ultrasound would be more sensitive. No gross biliary ductal dilatation. Pancreas: Grossly unremarkable. Spleen: Grossly unremarkable. Adrenal glands: Grossly unremarkable. Kidneys and ureters: Mild left-sided hydroureteronephrosis secondary to a 2 x 2 x 2 mm stone at the left ureterovesical junction, with considerable associated anterior perinephric and periureteral stranding and confluent fluid. The left kidney contains additional nonobstructing stones measuring up to 4 mm. There is no right-sided hydronephrosis or stone. Stomach and bowel: The unopacified small bowel is not significantly distended to suggest obstruction. The large bowel is grossly unremarkable in appearance. Appendix: The appendix is not identified, but there are no inflammatory changes in its expected region. Intraperitoneal space: No free air or significant free fluid. Vasculature: Unremarkable. No abdominal aortic aneurysm. Lymph nodes: No gross pathologic lymphadenopathy. Urinary bladder: Grossly unremarkable. Reproductive: Unremarkable as visualized. Bones/joints: Degenerative changes involve the spine and hips. Soft tissues: Unremarkable. IMPRESSION: 1. Mild left-sided hydroureteronephrosis secondary to a 2 x 2 x 2 mm stone at the left ureterovesical junction, with considerable associated anterior perinephric and periureteral stranding and confluent fluid. 2. Additional nonobstructing left nephrolithiasis. 3. Small hiatal hernia. Lab Data Lab results reviewed: Yes I reviewed the patient's lab results. Labs: Laboratory Tests Range/Units 04/30/22 04/30/22 04/30/22 11:25 11:38 11:38 WBC (4.4-10.8) 10^3/uL 4.82 RBC (4.36-5.78) 10^6/uL 4.91 Hgb (13.5-17.5) g/dL 15.1 Hct (40.0-50.0) % 45.0 MCV (80-95) fL 92 MCH (27.0-33.0) pg 30.8 MCHC (32.0-36.0) % 33.6 RDW (11.8-14.1) % 11.6 L Plt Count (130-400) 10^3/uL 257 MPV (8.0-11.0) fL 9.3 Immature Gran % 0.2 Neutrophils % 69.8 Lymphocytes % 17.2 Monocytes % 8.9 Eosinophils % 3.1 Basophils % 0.8 Nucleated RBC % (0.0-0.3) % 0.0 Absolute Neutrophils (1.2-6.7) 10^3/uL 3.36 Absolute Lymphocytes (1.2-3.4) 10^3/uL 0.83 L Absolute Monocytes (0.1-0.8) 10^3/uL 0.43 Absolute Eosinophils (0.0-0.7) 10^3/uL 0.15 Absolute Basophils (0.0-0.2) 10^3/uL 0.04 Sodium (136-145) mmol/L 141 Potassium (3.5-5.1) mmol/L 3.8 Chloride (98-107) mmol/L 105 Carbon Dioxide (21.0-32.0) mmol/L 31.8 Anion Gap (3-11) mmol/L 4.2 BUN (7-18) mg/dL 14 Creatinine (0.70-1.30) mg/dL 1.2 Estimated GFR/1.73 m2 (mL/min/1.73m2) >= 60.00 Glucose (74-106) mg/dL 138 H Calcium (8.5-10.1) mg/dL 8.8 Total Bilirubin (0.2-1.0) mg/dL 0.7 AST (15-37) U/L 19 ALT (16-63) U/L 15 L Alkaline Phosphatase (46-116) U/L 112 Total Protein (6.4-8.2) g/dL 7.2 Albumin (3.4-5.0) g/dL 4.0 Urine Color (Yellow) Yellow Urine Clarity (Clear) Cloudy Urine pH (5-8) 8.5 H Ur Specific Eidson (1.005-1.025) 1.020 Urine Protein (Negative) mg/dL Trace H Urine Ketones (Negative) mg/dL Negative Urine Blood (Negative) Trace-intact H Urine Nitrite (Negative) Negative Urine Bilirubin (Negative) Negative Urine Urobilinogen (Up TO 0.2) EU/dL 1.0 H Ur Leukocyte Esterase (Negative) Negative Urine RBC (0-2) HPF Negative Urine WBC (0-5) HPF 0-2 Ur Epithelial Cells (Negative) HPF Negative Urine Crystals (Negative) HPF Moderate Amorphous Urine Bacteria (Negative) HPF Few Urine Casts (Negative) LPF Negative Urine Mucus (Negative) Negative Ur Culture Indicated? No Urine Glucose (Negative) mg/dL Negative HPI General Mode of arrival: ambulatory . Date/Time Provider Initiated Documentation: 04/30/22 11:12 . Limitations to Documentation: no limitations . Information obtained by: patient . HPI Narrative: Pt is a 52yo M who presents to the ED with a complaint of diffuse abdominal pain worse in the suprapubic region with urinary urgency and frequency over the past 3 hours. He took 2 tabs of Advil prior to arrival without relief. He admits to occasional nausea but denies any vomiting. He states he felt fine this morning when he woke up until a few hours ago. His he thinks he has a history of a kidney stone. He denies any fever, hematuria, diarrhea. He states he had a normal bowel movement today. Related Data Home Medications Medication Instructions Recorded Confirmed bupropion HCl 300 mg 24 hr tablet, 300 mg PO QAM 10/10/18 04/30/22 extended release meloxicam 15 mg tablet 15 mg PO DAILY #90 tabs 02/07/22 04/30/22 ascorbic acid (vitamin C) 500 mg 1,000 mg PO DAILY 03/24/22 04/30/22 tablet ondansetron 4 mg disintegrating 4 mg PO TID PRN nausea and 04/30/22 tablet vomiting #6 tabs oxycodone 5 mg tablet 5 mg PO Q6H PRN pain #10 tabs 04/30/22 tamsulosin 0.4 mg capsule (Flomax) 0.4 mg PO DAILY #10 caps 04/30/22 Previous Rx's Medication Instructions Recorded meloxicam 15 mg tablet 15 mg PO DAILY #90 tabs 02/07/22 ondansetron 4 mg disintegrating 4 mg PO TID PRN nausea and 04/30/22 tablet vomiting #6 tabs oxycodone 5 mg tablet 5 mg PO Q6H PRN pain #10 tabs 04/30/22 tamsulosin 0.4 mg capsule (Flomax) 0.4 mg PO DAILY #10 caps 04/30/22 Allergies Allergy/AdvReac Type Severity Reaction Status Date / Time codeine AdvReac Intermediate Nausea Verified 04/30/22 11:22 meperidine HCl [From Demerol] AdvReac Intermediate Depression Verified 04/30/22 11:22 General Stated Complaint: Abd Prob CAMRON: 3 Review of Systems All systems reviewed & are unremarkable except as noted in HPI and below Constitutional Constitutional: Denies chills, Denies excessive sweating, Denies fatigue, Denies fever(s), Denies weakness and Denies weight loss Eyes Eyes: Reports system reviewed and no additional complaints, except as documented and Denies blurry vision ENT Ears, Nose, Mouth, and Throat: Denies vertigo, Denies dizziness, Denies otalgia, Denies nasal congestion, Denies sore throat and Denies throat swelling Cardiovascular Cardiovascular: Denies chest pain, Denies syncope, Denies rapid heart rate and Denies dyspnea Respiratory Respiratory: Denies chest congestion, Denies cough, Denies pain on inspiration and Denies dyspnea Gastrointestinal Gastrointestinal: Reports abdominal pain, Denies diarrhea and Denies vomiting Genitourinary Genitourinary: Denies hematuria, Denies dysuria, Denies flank pain and Reports urinary frequency Musculoskeletal Musculoskeletal: Denies back pain and Denies joint swelling Integumentary/Breasts Skin/Breast: Denies lesions and Denies rash Neurologic Neurologic: Denies behavioral changes, Denies confusion, Denies vertigo, Denies dizziness, Denies syncope, Denies localized weakness and Denies weakness Psychiatric Psychiatric: Denies behavioral changes, Denies confusion and Denies depression Endocrine Endocrine: Denies excessive sweating and Denies fatigue Hematologic/Lymphatic Hematologic/Lymphatic: Denies easy bruising and Denies lymphadenopathy Allergic/Immunologic Allergic/Immunologic: Denies throat swelling PFSH All Active Problems (Updated 04/30/22 @ 14:50 by Mariaelena Chaidez DO) Left ureteral stone (Acute) Normal colonoscopy (Acute ~04/07/22) Dermatitis (Acute 01/17/18) Depression (Chronic) Right ankle pain (Acute) Left elbow pain (Acute) Pain in right hand (Acute) Pain in right wrist (Acute) Carpal tunnel syndrome of right wrist (Acute) Trigger finger of right hand (Acute) Acute medial meniscus tear of right knee (Acute ~05/2021) Medical History (Updated 04/30/22 @ 14:50 by Mariaelena Chaidez DO) History of broken leg PTSD (post-traumatic stress disorder) Per pt. announce self if patient is asleep before touching Surgical History (Updated 04/26/22 @ 13:59 by Valerie Reynoso RN) Hemorrhoidectomy (07/23/18) thrombosed,gangrenous History of colonoscopy (~04/07/22) History of incision and drainage right hand History of open reduction and internal fixation (ORIF) procedure right middle finger Family History Mother , AGE 86 No problems noted. Father Cancer of neck Brother No problems noted. Sister No problems noted. Social History Smoking/Tobacco Use Status: Former Tobacco Use Quit Date: 11/26/12 Tobacco: How many years used: 6 Smoking risk assessment performed?: Yes Alcohol Intake: current Alcohol Intake frequency: holidays/special occasions only Alcohol type: hard liquor Drug use: Never Substance use type: does not use Caregiver/Support person: No Household members: none Communication Needs: None Do you need help understanding health information?: Rarely current occupation: [employer] Pets and animals: No Sexually active: Yes Do you think of yourself as: straight/heterosexual Current gender identity: male What is your relationship status?: never How often do you talk on the phone with friends or family?: once per week How often do you get together with friends or relatives?: once per week How often do you attend methodist or cheondoism services?: 1-3 times per year Do you belong to any clubs or organized social groups?: no Panel score (0-1 are the most socially isolated patients): 0 NHANES result reviewed/action taken: Yes What type of physical activity do you participate in: walking and other 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: manual labor, 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 Duration: > 90 minutes/day Frequency: daily Ciarra/Presybeterian: Mosque Special ciarra needs: No Seatbelt use: always Helmet use: Yes Helmet use: always Drive intox or ride w/intox auto carrier driver: No Do you feel safe at home: Yes (Pt lives alone) Do you feel safe in your relationship?: Yes Exam Const General: cooperative and uncomfortable Orientation: alert, awake and oriented x3 HENMT Head: normal to inspection Ears: hearing grossly normal bilaterally, external ears normal and TM's normal bilaterally General nose exam: external nose normal Face and sinus: normal facial exam Mouth: oral mucosae normal Teeth and gingiva: dentition normal Throat: posterior oropharynx normal Eyes General: appearance normal, both eyes and all related structures Eyelids: eyelids normal Pupils: PERRL EOM: EOM intact bilaterally Neck Neck: normal visual inspection Lymphatic: no lymphadenopathy noted Chest Chest: normal inspection of the chest Resp Effort & Inspection: normal respiratory effort and able to speak in complete sentences Auscultation: clear to auscultation bilaterally Cardio Rate: regular rate Rhythm: regular rhythm GI Inspection: normal to inspection Palpation: soft, not firm, no guarding, no hepatosplenomegaly, no masses and tender (diffuse, worse in suprapubic region) Auscultation: normal bowel sounds Male General Exam: Yes normal external exam Penis: normal penis Testes: no testicular swelling and testicular tenderness bilaterally Back/Spine/Pelvis Back: no CVA tenderness Skin General skin exam: no rashes or lesions noted Neuro General: patient alert and patient awake Cognition: normal cognition Speech: speech normal Gait: normal gait Motor: muscle tone normal throughout Sensory Exam: no sensory deficits noted Extrem General: normal to inspection, full ROM and capillary refill normal Psych Appearance: grossly normal Mental Status: mental status grossly normal Speech and Movement: speech and movement normal Affect: normal affect Thought Process: normal Course Vital Signs Vital signs: Vital Signs Temperature 97.5 F L 04/30/22 11:17 Pulse 54 L 04/30/22 11:17 Respiratory Rate 16 04/30/22 11:17 Blood Pressure 145/83 H 04/30/22 11:17 Pulse Oximetry 99 04/30/22 11:17 Temperature 97.5 F L 04/30/22 11:17 Temperature Source Oral 04/30/22 11:17 Pulse 54 L 04/30/22 11:17 Respiratory Rate 16 04/30/22 11:17 Blood Pressure 145/83 H 04/30/22 11:17 Blood Pressure Position Sitting 04/30/22 11:17 Pulse Oximetry 99 04/30/22 11:17 Oxygen Delivery Method Room Air 04/30/22 11:17 Oxygen Flow Rate 0 04/30/22 11:17 Pain Level 10 04/30/22 11:17
[2022-04-30 11:32] LABS: Bilirubin Negative (Negative); Blood Trace-intact (Negative); Clarity Cloudy (Clear); Glucose Negative (Negative); Ketones Negative (Negative); Leukocyte Esterase Negative (Negative); Nitrite Negative (Negative); pH 8.5 (5-8)
[2022-04-30 11:43] LABS: Abs Immature Grans 0.01 10^3/uL (0.0-0.06); Absolute Basophil Count 0.04 10^3/uL (0.0-0.2); Absolute Eosinophil Count 0.15 10^3/uL (0.0-0.7); Absolute Lymphocyte Count 0.83 10^3/uL (1.2-3.4); Absolute Monocyte Count 0.43 10^3/uL (0.1-0.8); Absolute Neutrophil Count 3.36 10^3/uL (1.2-6.7); Basophils % 0.8; Eosinophils % 3.1; HGB 15.1 g/dL (13.5-17.5); Immature Grans % 0.2; Lymphocytes % 17.2; MCH 30.8 pg (27.0-33.0); MCHC 33.6 % (32.0-36.0); MCV 92 fL (80-95); MPV 9.3 fL (8.0-11.0); Monocytes % 8.9; Neutrophils % 69.8; Platelet Count 257 10^3/uL (130-400); RBC 4.91 10^6/uL (4.36-5.78); RDW 11.6 % (11.8-14.1); RDW-SD 39.2 fL; WBC 4.82 10^3/uL (4.4-10.8)
--- NOTE | 2022-04-30 11:45 | DI.CT_ITS ---
Exam(s) CT ABDOMEN PELVIS WO EXAM: CT ABDOMEN PELVIS WO CLINICAL HISTORY: difficulty urinating, diffuse abd pain. TECHNIQUE: Imaging Protocol: Axial computed tomography images with coronal and sagittal reformatted images were created and reviewed CONTRAST MATERIAL: Intravenous: none Oral: None COMPARISON: No exams were available for comparison FINDINGS: VISUALIZED LUNG BASES: No nodules nor pleural effusions evident. ABDOMEN: LIVER: There are no obvious focal hepatic lesions evident of this noninfused study. GALLBLADDER/BILIARY: No obvious gallbladder pathology. CBD is not dilated. PANCREAS: No evidence of pancreatic mass nor dilatation of the pancreatic duct. SPLEEN: Spleen is not enlarged. No obvious intrasplenic lesions. ADRENALS: Bilateral symmetrical adrenal hyperplasia noted KIDNEYS:No significant findings in the right kidney. In the left kidney there are multiple nonobstru ctive calculi. However, there is also ipsilateral 100 mild hydronephrosis and hydroureter related to a 2 x 2 millimeter calculus at the ureterovesical junction on the left side. There are no radiopaqu e calculi within the nondistended urinary bladder lumen. In addition to hydronephrosis there is esther nephric and territory ureteral stranding with some confluent fluid seen medial to the left kidney. ABDOMINAL AORTA: Abdominal aorta is not enlarged. LYMPH NODES: There is no retroperitoneal nor paraaortic adenopathy. ABDOMINAL WALL: No evidence of significant anterior abdominal wall nor inguinal hernia. GI: There is no evidence of bowel obstruction, free air, nor abscess. PELVIS: LYMPH NODES: There is no intrapelvic nor inguinal adenopathy. GI: No evidence of appendicitis.No evidence of sigmoid diverticulitis. URINARY BLADDER: As above REPRODUCTIVE: Prostate not enlarged. Seminal vesicles unremarkable. OSSEOUS: No significant osseous lesions. No fractures evident. IMPRESSION: 1. The main finding here is an obstructing 2 millimeter calculus in the lower left ureter at the leve l of the ureterovesical junction. There is mild hydronephrosis and hydroureter on the left side abov e this level but there is also considerable perinephric stranding and periureteral stranding and conf luent fluid. 2. There also additional nonobstructive calculi remaining in the left kidney. 3. No significant findings in the right kidney. RADIATION DOSE DELIVERED: 740.69mGy.cm Total DLP DATA REPOSITORY: All CT scans at this facility are submitted to the National Radiology Data Registry (NRDR) Dose Index Registry (DIR) with the [employer] (ACR). RADIATION OPTIMIZATION: All CT scans at this facility use at least one of these dose optimization te chniques: automated exposure control; mA and/or kV adjustment per patient size (includes targeted exa ms where dose is matched to clinical indication); or iterative reconstruction.
[2022-04-30 11:50] LABS: Bacteria Few HPF (Negative); Epithelial Cells Negative HPF (Negative); RBC Negative HPF (0-2); WBC 0-2 HPF (0-5)
[2022-04-30 11:51] LABS: C & S Indicated? No; Casts Negative LPF (Negative); Crystals Moderate Amorphous HPF (Negative); Mucus Negative (Negative)
[2022-04-30] MEDS: HYDROmorphone 2 MG/ML VIAL 0.5 MG IVP (11:55)
[2022-04-30 12:00] LABS: ALT 15 U/L (16-63); AST 19 U/L (15-37); Alkaline Phosphatase 112 U/L (46-116); Anion Gap 4.2 mmol/L (3-11); BUN 14 mg/dL (7-18); Bilirubin, Total 0.7 mg/dL (0.2-1.0); CO2 31.8 mmol/L (21.0-32.0); CREATININE 1.2 mg/dL (0.70-1.30); Calcium 8.8 mg/dL (8.5-10.1); Chloride 105 mmol/L (98-107); Glucose 138 mg/dL (74-106); Potassium 3.8 mmol/L (3.5-5.1); Sodium 141 mmol/L (136-145); Total Protein 7.2 g/dL (6.4-8.2)
[2022-04-30] MEDS: Normal Saline Flush 10 ML SYR IVP (12:00)
[2022-04-30] MEDS: Ondansetron 4 MG/2 ML VIAL IVP (12:00)
[2022-04-30] MEDS: Normal Saline 1,000 ML 1000 ML IV ×2 (12:12→13:14)
[2022-04-30] MEDS: Ketorolac 15 MG/ML VIAL IVP ×2 (12:30→13:25)
--- NOTE | 2022-04-30 12:33 | DI.VRAD_ITS ---
PROCEDURE INFORMATION: Exam: CT Abdomen And Pelvis Without Contrast Exam date and time: 04/30/2022 12:08 PM Age: 52 years old Clinical indication: Other: Difficulty urinating, diffuse abd pain R/O renal stone, pyelonephritis TECHNIQUE: Imaging protocol: Computed tomography of the abdomen and pelvis without contrast. COMPARISON: None provided. FINDINGS: Limitations: Evaluation of the solid and vascular structures is somewhat limited by lack of IV contrast. Lungs: The visualized lung bases demonstrate minor dependent atelectasis. Diaphragm: There is a small hiatal hernia. Liver: Grossly unremarkable. Gallbladder and bile ducts: No gallstones are evident, but ultrasound would be more sensitive. No gross biliary ductal dilatation. Pancreas: Grossly unremarkable. Spleen: Grossly unremarkable. Adrenal glands: Grossly unremarkable. Kidneys and ureters: Mild left-sided hydroureteronephrosis secondary to a 2 x 2 x 2 mm stone at the left ureterovesical junction, with considerable associated anterior perinephric and periureteral stranding and confluent fluid. The left kidney contains additional nonobstructing stones measuring up to 4 mm. There is no right-sided hydronephrosis or stone. Stomach and bowel: The unopacified small bowel is not significantly distended to suggest obstruction. The large bowel is grossly unremarkable in appearance. Appendix: The appendix is not identified, but there are no inflammatory changes in its expected region. Intraperitoneal space: No free air or significant free fluid. Vasculature: Unremarkable. No abdominal aortic aneurysm. Lymph nodes: No gross pathologic lymphadenopathy. Urinary bladder: Grossly unremarkable. Reproductive: Unremarkable as visualized. Bones/joints: Degenerative changes involve the spine and hips. Soft tissues: Unremarkable. IMPRESSION: 1. Mild left-sided hydroureteronephrosis secondary to a 2 x 2 x 2 mm stone at the left ureterovesical junction, with considerable associated anterior perinephric and periureteral stranding and confluent fluid. 2. Additional nonobstructing left nephrolithiasis. 3. Small hiatal hernia. Dictated and Authenticated by: Keenan Barger MD. Ordering:DAYLIN Ferrell MD
[2022-04-30 13:12] VITALS: BP 118/75; PULSE 50; RESP 16; TEMP 36.8; O2SAT 100
[2022-04-30 13:13] LABS: Lipase 81 U/L (73-393)
[2022-04-30] MEDS: HYDROmorphone 2 MG/ML VIAL 1 MG IVP (13:29)
[2022-04-30 15:12] VITALS: BP 109/62; PULSE 63; TEMP 36.6; O2SAT 94
[2022-04-30 15:22] VITALS: BP 109/62; PULSE 63; RESP 16; TEMP 36.6; O2SAT 94
[2022-05-05 17:44] LABS: Source: Kidney
== END 2022-04-30 15:25 | disposition home or self-care (01) ==
PROVIDERS: Emergency Provider Physician Assistant
DX: N20.1 Calculus of ureter (principal)
CPT/HCPCS: 36415; 80053; 83690; 96361; 96374; 96375; 96376; 99285; 74176; 81003; 81015; 82365; 85025; 99284; J1885; J2405

== ENCOUNTER 2023-04-01 09:02 | Emergency (ER) | payer BC, SELFPAY ==
[2023-04-01 09:09] VITALS: BP 123/82; PULSE 63; RESP 15; TEMP 36.5; O2SAT 98
--- NOTE | 2023-04-01 09:15 | DI.CT_ITS ---
Exam(s) CT ABDOMEN PELVIS WO EXAM: CT ABDOMEN PELVIS WO CLINICAL HISTORY: L flank pain. TECHNIQUE: Imaging Protocol: Axial computed tomography images with coronal and sagittal reformatted images were created and reviewed CONTRAST MATERIAL: Intravenous: none Oral: None COMPARISON: CT CT ABDOMEN PELVIS WO from 04/30/2022 FINDINGS: VISUALIZED LUNG BASES: No nodules nor pleural effusions evident. ABDOMEN: There is no ascites. LIVER: There are no obvious focal hepatic lesions evident of this noninfused study. GALLBLADDER/BILIARY: No obvious gallbladder pathology. CBD is not dilated. PANCREAS: No evidence of pancreatic mass nor dilatation of the pancreatic duct. SPLEEN: Spleen is not enlarged. No obvious intrasplenic lesions. ADRENALS: Thickening of both adrenal glands is noted, unchanged from previous and probably consistent with element of bilateral adrenal hyperplasia. KIDNEYS:There is a punctate 1 millimeter nonobstructive calculus in lower pole of the right kidney. No other right kidney findings. There is a millimeter calculus in the left kidney again noted. No o ther left kidney findings but there is mild dilatation left collecting system with left ureter dilate d to 5 mm diameter. There appears to be a calculus at the left ureterovesical junction measuring 2-3 mm. No calculi in the urinary bladder. Bladder is thick-walled and contracted, similar to previous .. ABDOMINAL AORTA: Abdominal aorta is not enlarged. LYMPH NODES: There is no retroperitoneal nor paraaortic adenopathy. ABDOMINAL WALL: No evidence of significant anterior abdominal wall nor inguinal hernia. GI: There is no evidence of bowel obstruction, free air, nor abscess. PELVIS: LYMPH NODES: There is no intrapelvic nor inguinal adenopathy. GI: No evidence of appendicitis.No evidence of sigmoid diverticulitis. URINARY BLADDER: Thick-walled. REPRODUCTIVE: Prostate size upper normal. OSSEOUS: No significant osseous lesions. IMPRESSION: 1. The main finding here is obstructive 2-3 millimeter calculus in the lower left ureter just above t he UVJ. There is mild dilatation left collecting system above this level. 2. There are other calculi in the kidneys as described above. 3. Bilateral adrenal hyperplasia again noted. RADIATION DOSE DELIVERED: 762.92mGy.cm Total DLP DATA REPOSITORY: All CT scans at this facility are submitted to the National Radiology Data Registry (NRDR) Dose Index Registry (DIR) with the [employer] (ACR). RADIATION OPTIMIZATION: All CT scans at this facility use at least one of these dose optimization te chniques: automated exposure control; mA and/or kV adjustment per patient size (includes targeted exa ms where dose is matched to clinical indication); or iterative reconstruction.
--- NOTE | 2023-04-01 09:28 | ED.GENADUL_ITS ---
Discharge Plan Disposition Patient Disposition: Home Condition: Good Discharge Details Clinical Impression: Kidney stone on left side Primary Care Provider: Carlos Arboleda ED Provider: Ana Coronado Home Meds and New Rx's Prescriptions: Continued bupropion HCl 300 mg tablet extended release 24 hr 300 mg PO QAM ascorbic acid (vitamin C) 500 mg tablet 1,000 mg PO DAILY Discharge Instructions Instructions: Kidney Stones (ED) Additional Instructions: Take your Aleve 2 tablets 2 times a day as needed for pain. Drink plenty of fluids. You can strain your urine to look for the stone. Return to ED for fever of 100.4 or above, frequency, urgency, or burning on urination that is persistent, or any other concerns. Call Dr. Koo's office tomorrow morning if you are still having discomfort for a follow-up appointment for your 2 mm stone which is at your left UVJ. Medical Decision Making I went in to update the patient on his test results and he was sleeping. He says the pain is quite mild and again declines pain medication. He tells me that he does sometimes take Aleve and I told him that if the pain gets worse he can take 2 tablets 2 times a day. This interferes with prostaglandin synthesis and will help the pain. We also discussed Flomax but are holding off on this at this time. He does not want anything stronger. Talked about the fact that a 2 mm stone at the UVJ should pass on its own. I did give him Dr. Koo's phone number to call tomorrow for follow-up appointment. HPI General Date/Time Provider Initiated Documentation: 04/01/23 09:03 . HPI Narrative: This 53-year-old male patient with a history of renal stones presents with left flank pain radiating into his left lower quadrant. He states it began about an hour prior to arrival. He says its hard and hot pain and comes and goes. He does not have a lot of pain right now and does not want any pain medication. He denies nausea, vomiting, or diarrhea. He has no dysuria or hematuria. There has been no fever or chills. Pain has been moderate in intensity. He has not tried anything for the discomfort. Patient denies smoking at this time. He says he rarely drinks and when he does has 1 beer. Related Data Home Medications Medication Instructions Recorded Confirmed bupropion HCl 300 mg 24 hr tablet, 300 mg PO QAM 10/10/18 04/01/23 extended release ascorbic acid (vitamin C) 500 mg 1,000 mg PO DAILY 03/24/22 04/01/23 tablet Allergies Allergy/AdvReac Type Severity Reaction Status Date / Time codeine AdvReac Intermediate Nausea Verified 04/01/23 09:13 meperidine HCl [From Demerol] AdvReac Intermediate Depression Verified 04/01/23 09:13 General Stated Complaint: Abd Prob CAMRON: 3 Review of Systems Constitutional Constitutional: Denies chills, Denies fever(s), Denies headache(s) and Denies weakness Eyes Eyes: Denies diplopia and Reports other (no redness) ENT Ears, Nose, Mouth, and Throat: Denies otalgia, Denies headache(s), Denies nasal congestion, Denies nasal discharge, Denies neck pain and Denies sore throat Cardiovascular Cardiovascular: Denies chest pain, Denies palpitations and Denies dyspnea Respiratory Respiratory: Denies cough and Denies dyspnea Gastrointestinal Gastrointestinal: Reports abdominal pain (Left lower quadrant pain off and on; left flank pain radiates to LLQ), Denies diarrhea, Denies nausea and Denies vomiting Genitourinary Genitourinary: Denies hematuria, Denies difficulty urinating and Denies dysuria Musculoskeletal Musculoskeletal: Denies myalgias, Denies muscle weakness, Denies neck pain, Denies numbness and Reports other (edema) Integumentary/Breasts Skin/Breast: Denies change in pigmentation and Denies rash Neurologic Neurologic: Denies headache(s), Denies numbness and Denies weakness Endocrine Endocrine: Denies palpitations PFSH All Active Problems (Updated 04/01/23 @ 10:38 by Ana Coronado MD) Kidney stone on left side (Acute) Migraines (Chronic) Managed by [facility] Renal stones (Chronic) Normal colonoscopy (Acute ~04/07/22) Dermatitis (Acute 01/17/18) Depression (Chronic) Right ankle pain (Acute) Left elbow pain (Acute) Pain in right hand (Acute) Pain in right wrist (Acute) Carpal tunnel syndrome of right wrist (Acute) Trigger finger of right hand (Acute) Acute medial meniscus tear of right knee (Acute ~05/2021) Medical History History of broken leg PTSD (post-traumatic stress disorder) Per pt. announce self if patient is asleep before touching Surgical History Hemorrhoidectomy (07/23/18) thrombosed,gangrenous History of colonoscopy (~04/07/22) History of incision and drainage right hand History of open reduction and internal fixation (ORIF) procedure right middle finger Family History Mother , AGE 86 No problems noted. Father Cancer of neck Brother No problems noted. Sister No problems noted. 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 Pets and animals: No Sexually active: Yes Do you think of yourself as: straight/heterosexual Current gender identity: male What is your relationship status?: never How often do you talk on the phone with friends or family?: once per week How often do you get together with friends or relatives?: once per week How often do you attend episcopalian or mosque services?: 1-3 times per year Do you belong to any clubs or organized social groups?: no Panel score (0-1 are the most socially isolated patients): 0 NHANES result reviewed/action taken: Yes What type of physical activity do you participate in: walking and other 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: manual labor, 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 Duration: > 90 minutes/day Frequency: daily Ciarra/Zoroastrian: Oriental Orthodox Special ciarra needs: No Seatbelt use: always Helmet use: Yes Helmet use: always Drive intox or ride w/intox commercial collections driver: No Do you feel safe at home: Yes (Pt lives alone) Do you feel safe in your relationship?: Yes Exam Const General: no acute distress, well developed, well groomed and not in acute distress Nutritional Appearance: well nourished Orientation: alert and oriented x3 HENMA Head: normocephalic and atraumatic Ears: external ears normal Mouth: oropharynx normal and moist mucous membranes Throat: posterior oropharynx normal Eyes Conjunctivae: conjunctivae normal Neck Neck: full ROM and supple Chest Chest: normal inspection of the chest Resp Effort & Inspection: normal respiratory effort Auscultation: clear to auscultation bilaterally Cardio Rate: regular rate Rhythm: regular rhythm Heart Sounds: no murmurs and no rubs GI Inspection: normal to inspection Palpation: soft, nontender and other (non distended) Auscultation: normal bowel sounds Skin General skin exam: no rashes or lesions noted and other (pink, warm, dry) Neuro General: patient alert, patient awake and patient oriented x3 Speech: speech normal Motor: other (KINCAID) Sensory Exam: no sensory deficits noted Extrem General: normal to inspection, full ROM and pedal edema present Psych Mental Status: mental status grossly normal Speech and Movement: speech and movement normal Affect: normal affect Course Vital Signs Vital signs: Vital Signs Temperature 36.5 C 04/01/23 09:09 Pulse 63 04/01/23 09:09 Respiratory Rate 15 04/01/23 09:09 Blood Pressure 123/82 04/01/23 09:09 Pulse Oximetry 98 04/01/23 09:09 Temperature 36.5 C 04/01/23 09:09 Temperature Source Oral 04/01/23 09:09 Pulse 63 04/01/23 09:09 Respiratory Rate 15 04/01/23 09:09 Respiratory Effort Normal 04/01/23 09:11 Blood Pressure 123/82 04/01/23 09:09 Blood Pressure Position Sitting 04/01/23 09:09 Pulse Oximetry 98 04/01/23 09:09 Oxygen Delivery Method Room Air 04/01/23 09:09 Oxygen Flow Rate 0 04/01/23 09:09 Pain Level 5 04/01/23 09:11 Lab/Test Results Lab/Test Results: Patient's UA is positive for 10-20 red blood cells but no leuk esterase or white blood cells. CT abdomen and pelvis without reveals mild left hydro with a 2 mm stone at the left UVJ.
[2023-04-01 09:48] LABS: Bilirubin Negative (Negative); Blood Moderate (Negative); Clarity Clear (Clear); Glucose Negative (Negative); Ketones Negative (Negative); Leukocyte Esterase Negative (Negative); Nitrite Negative (Negative); pH 7.5 (5-8)
[2023-04-01 09:56] LABS: Bacteria Negative HPF (Negative); C & S Indicated? No; Casts 0-2 Hyaline LPF (Negative); Crystals Negative HPF (Negative); Epithelial Cells Rare HPF (Negative); Mucus Trace (Negative); WBC Negative HPF (0-5)
--- NOTE | 2023-04-01 10:20 | DI.VRAD_ITS ---
PROCEDURE INFORMATION: Exam: CT Abdomen And Pelvis Without Contrast Exam date and time: 04/01/2023 9:51 AM Age: 53 years old Clinical indication: Other: Left flank pain TECHNIQUE: Imaging protocol: Computed tomography of the abdomen and pelvis without contrast. Radiation optimization: All CT scans at this facility use at least one of these dose optimization techniques: automated exposure control; mA and/or kV adjustment per patient size (includes targeted exams where dose is matched to clinical indication); or iterative reconstruction. COMPARISON: CT ABDOMEN PELVIS WO 04/30/2022 12:08 PM FINDINGS: Liver: Normal. No mass. Gallbladder and bile ducts: Normal. No calcified stones. No ductal dilation. Pancreas: Normal. No ductal dilation. Spleen: Normal. No splenomegaly. Adrenal glands: Normal. No mass. Kidneys and ureters: Mild left hydroureteronephrosis secondary to a 2 mm left UVJ calculus. Bilateral nephrolithiasis. Faint left renal hypodensity too small to characterize Stomach and bowel: Unremarkable. No obstruction. No mucosal thickening. Appendix: No evidence of appendicitis. Intraperitoneal space: Unremarkable. No free air. No significant fluid collection. Vasculature: Unremarkable. No abdominal aortic aneurysm. Lymph nodes: Unremarkable. No enlarged lymph nodes. Urinary bladder: Unremarkable as visualized. Reproductive: Unremarkable as visualized. Bones/joints: Mild degenerative changes in the spine. No acute fracture. Soft tissues: Unremarkable. IMPRESSION: Mild left obstructive uropathy secondary to a 2 mm left UVJ calculus Bilateral nephrolithiasis Dictated and Authenticated by: Juan Manuel You MD. Ordering:ADDIE Perez MD
[2023-04-01 10:49] VITALS: BP 118/69; PULSE 66; RESP 18; O2SAT 99
== END 2023-04-01 10:49 | disposition home or self-care (01) ==
PROVIDERS: Emergency Provider Emergency Medicine; PCP Nurse Practitioner Family
DX: N20.0 Calculus of kidney (principal)
CPT/HCPCS: 99283; 74176; 81003; 81015; 99284

== ENCOUNTER 2023-04-01 20:14 | Emergency (ER) | payer BC, SELFPAY ==
[2023-04-01 20:34] VITALS: BP 115/77; PULSE 64; RESP 16; TEMP 36.8; O2SAT 98
--- NOTE | 2023-04-01 22:57 | ED.GENADUL_ITS ---
Discharge Plan Disposition Patient Disposition: Home Condition: Stable Discharge Details Clinical Impression: Kidney stone Primary Care Provider: Carlos Arboleda ED Provider: Ajith Wilhelm Home Meds and New Rx's Prescriptions: New tamsulosin [Flomax] 0.4 mg capsule 0.4 mg PO DAILY 5 Days Qty: 5 0RF No Action bupropion HCl 300 mg tablet extended release 24 hr 300 mg PO QAM ascorbic acid (vitamin C) 500 mg tablet 1,000 mg PO DAILY Discharge Instructions Instructions: Kidney Stones (ED) Additional Instructions: Please follow-up with urology and your primary care physician. Please return to the emergency department you have any worsening symptoms Medical Decision Making 53-year-old male recently diagnosed with 2 mm distal UVJ kidney stone presents with recurrent discomfort, no nausea vomiting no fever chills patient is afebrile nontoxic resting comfortably currently will provide dose of Flomax and Toradol Home care instructions and return precautions given. HPI General Date/Time Provider Initiated Documentation: 04/01/23 20:49 . HPI Narrative: 53-year-old male seen earlier today diagnosed with 2 mm distal ureteral kidney stone presents with recurrent intermittent pain. Denies vomiting fevers or chills. Has been able to urinate Related Data Home Medications Medication Instructions Recorded Confirmed bupropion HCl 300 mg 24 hr tablet, 300 mg PO QAM 10/10/18 04/01/23 extended release ascorbic acid (vitamin C) 500 mg 1,000 mg PO DAILY 03/24/22 04/01/23 tablet tamsulosin 0.4 mg capsule (Flomax) 0.4 mg PO DAILY 5 days #5 caps 04/01/23 Previous Rx's Medication Instructions Recorded tamsulosin 0.4 mg capsule (Flomax) 0.4 mg PO DAILY 5 days #5 caps 04/01/23 Allergies Allergy/AdvReac Type Severity Reaction Status Date / Time codeine AdvReac Intermediate Nausea Verified 04/01/23 20:40 meperidine HCl [From Demerol] AdvReac Intermediate Depression Verified 04/01/23 20:40 General Stated Complaint: FlankPain CAMRON: 5 Review of Systems Narrative: Review of Systems Constitutional: negative Eyes: negative ENT: negative Cardiovascular: negative Respiratory: negative Gastrointestinal: negative : Left flank pain Musculoskeletal: negative Skin: negative Neurologic: negative Psych: negative PFSH All Active Problems (Updated 04/01/23 @ 23:02 by Ajith Wilhelm MD) Kidney stone on left side (Acute) Kidney stone (Chronic) Migraines (Chronic) Managed [facility] Renal stones (Chronic) Normal colonoscopy (Acute ~04/07/22) Dermatitis (Acute 01/17/18) Depression (Chronic) Right ankle pain (Acute) Left elbow pain (Acute) Pain in right hand (Acute) Pain in right wrist (Acute) Carpal tunnel syndrome of right wrist (Acute) Trigger finger of right hand (Acute) Acute medial meniscus tear of right knee (Acute ~05/2021) Medical History History of broken leg PTSD (post-traumatic stress disorder) Per pt. announce self if patient is asleep before touching Surgical History Hemorrhoidectomy (07/23/18) thrombosed,gangrenous History of colonoscopy (~04/07/22) History of incision and drainage right hand History of open reduction and internal fixation (ORIF) procedure right middle finger Family History Mother , AGE 86 No problems noted. Father Cancer of neck Brother No problems noted. Sister No problems noted. 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 Pets and animals: No Sexually active: Yes Do you think of yourself as: straight/heterosexual Current gender identity: male What is your relationship status?: never How often do you talk on the phone with friends or family?: once per week How often do you get together with friends or relatives?: once per week How often do you attend buddhism or faith services?: 1-3 times per year Do you belong to any clubs or organized social groups?: no Panel score (0-1 are the most socially isolated patients): 0 NHANES result reviewed/action taken: Yes What type of physical activity do you participate in: walking and other Details: manual labor, 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 Duration: > 90 minutes/day Frequency: daily Ciarra/Mu-Ism: Rastafarian Special ciarra needs: No Seatbelt use: always Helmet use: Yes Helmet use: always Drive intox or ride w/intox auto transport driver: No Do you feel safe at home: Yes (Pt lives alone) Do you feel safe in your relationship?: Yes Exam Narrative Exam Narrative: Physical Examination General: alert, awake, cooperative, resting comfortably, no acute distress HEENT: normocephalic, atraumatic; PERRL, EOM intact, conjunctiva normal; no nasal discharge; moist mucous membranes, oral and pharyngeal mucosa normal, tolerating secretions Neck: supple, trachea midline; full ROM Chest: normal to inspection Respiratory: normal respiratory effort, speaking in full sentences Cardiac: regular rate, regular rhythm, S1S2 intact, no murmurs rubs or gallops GI: abdomen soft, non-tender, non-distended; no palpable mass or hepatosplenomegaly Skin: no lesions, rashes or trauma appreciated Neuro: AAOx3, normal speech, moving all extremities Psych: Appropriate mood and affect Course Vital Signs Vital signs: Vital Signs Temperature 36.8 C 04/01/23 20:34 Pulse 64 04/01/23 20:34 Respiratory Rate 16 04/01/23 20:34 Blood Pressure 115/77 04/01/23 20:34 Pulse Oximetry 98 04/01/23 20:34 Temperature 36.8 C 04/01/23 20:34 Pulse 64 04/01/23 20:34 Respiratory Rate 16 04/01/23 20:34 Respiratory Effort Normal 04/01/23 20:38 Blood Pressure 115/77 04/01/23 20:34 Blood Pressure Position Sitting 04/01/23 20:34 Pulse Oximetry 98 04/01/23 20:34 Oxygen Delivery Method Room Air 04/01/23 20:34 Oxygen Flow Rate 0 04/01/23 20:34 Pain Level 6 04/01/23 20:34
[2023-04-01] MEDS: Ketorolac 15 MG/ML VIAL IM (23:15)
[2023-04-01 23:56] VITALS: BP 123/84; PULSE 65; RESP 16; TEMP 37; O2SAT 97
[2023-04-02] MEDS: Tamsulosin 0.4 MG CAPCR PO
== END 2023-04-02 00:01 | disposition home or self-care (01) ==
PROVIDERS: Emergency Provider Emergency Medicine; PCP Nurse Practitioner Family
DX: N20.0 Calculus of kidney (principal)
CPT/HCPCS: 96372; 99284; J1885

== ENCOUNTER 2023-04-02 14:56 | Emergency (ER) | payer BC, SELFPAY ==
[2023-04-02 15:00] VITALS: BP 110/72; PULSE 71; RESP 18; TEMP 37; O2SAT 98
--- NOTE | 2023-04-02 15:15 | DI.CT_ITS ---
Exam(s) CT ABDOMEN PELVIS WO EXAM: CT ABDOMEN PELVIS WO CLINICAL HISTORY: left kidney stone, concern for obstruction. TECHNIQUE: Imaging Protocol: Axial computed tomography images with coronal and sagittal reformatted images were created and reviewed. Oral: / no COMPARISON: CT CT ABDOMEN PELVIS WO from 04/01/2023 FINDINGS: ABDOMEN: Lung Bases: Normal where visualized. Liver: Normal density. No measurable mass. Gallbladder and biliary tract: No radiodense calculus or dilation. Pancreas: Normal density, no abnormal calcifications or inflammatory process. Spleen: Normal. Kidneys: Normal size, contour and axis. Slight interval increase in dilatation of the left collectin g system. The previously noted 2-3 millimeter calcification has progressed slightly to the ureterove sical junction. No masses seen. Slight perinephric stranding, new from prior. Mild left renal enla rgement.. Other nonobstructing stones bilaterally, unchanged. Adrenal glands: Mildly prominent consistent with hyperplasia. Lymph nodes: Within normal limits. Abdominal Aorta: Abdominal portion non-dilated. PELVIS: Bladder: Empty, not well evaluated. Bowel: No obstruction or bowel wall thickening. Peritoneal cavity: No ascites, collection or mesenteric inflammatory response. Reproductive organs: Within normal limits. Bones: Within normal limits. IMPRESSION: Slight interval increase in degree left hydronephrosis, still mild, secondary to a 2-3 millimeter sto ne at the ureterovesical junction. Findings called to Dr. Wilhelm of the emergency department. RADIATION DOSE DELIVERED: 1,016.77mGy.cm Total DLP DATA REPOSITORY: All CT scans at this facility are submitted to the National Radiology Data Registry (NRDR) Dose Index Registry (DIR) with the [employer] (A[employer]). RADIATION OPTIMIZATION: All CT scans at this facility use at least one of these dose optimization te chniques: automated exposure control; mA and/or kV adjustment per patient size (includes targeted exa ms where dose is matched to clinical indication); or iterative reconstruction.
[2023-04-02] MEDS: Normal Saline 1,000 ML 1000 ML IV (15:32)
[2023-04-02] MEDS: Ketorolac 15 MG/ML VIAL IVP (15:32)
[2023-04-02 15:33] LABS: Abs Immature Grans 0.03 10^3/uL (0.0-0.06); Absolute Basophil Count 0.04 10^3/uL (0.0-0.2); Absolute Eosinophil Count 0.14 10^3/uL (0.0-0.7); Absolute Lymphocyte Count 0.94 10^3/uL (1.2-3.4); Absolute Monocyte Count 0.88 10^3/uL (0.1-0.8); Absolute Neutrophil Count 6.43 10^3/uL (1.2-6.7); Basophils % 0.5; Eosinophils % 1.7; HCT 43.7 % (40.0-50.0); HGB 14.9 g/dL (13.5-17.5); Immature Grans % 0.4; Lymphocytes % 11.1; MCH 30.9 pg (27.0-33.0); MCHC 34.1 % (32.0-36.0); MCV 91 fL (80-95); MPV 9.4 fL (8.0-11.0); Monocytes % 10.4; Neutrophils % 75.9; Platelet Count 239 10^3/uL (130-400); RBC 4.82 10^6/uL (4.36-5.78); RDW-SD 39.6 fL; WBC 8.46 10^3/uL (4.4-10.8)
[2023-04-02 15:46] LABS: ALT 14 U/L (16-63); AST 16 U/L (15-37); Albumin 3.9 g/dL (3.4-5.0); Alkaline Phosphatase 108 U/L (46-116); Anion Gap 5.4 mmol/L (3-11); BUN 17 mg/dL (7-18); Bilirubin, Total 0.6 mg/dL (0.2-1.0); CO2 30.6 mmol/L (21.0-32.0); CREATININE 1.7 mg/dL (0.70-1.30); Calcium 9.2 mg/dL (8.5-10.1); Chloride 105 mmol/L (98-107); Estimated GFR 47.02 (mL/min/1.73m2); Glucose 98 mg/dL (74-106); Potassium 3.9 mmol/L (3.5-5.1); Sodium 141 mmol/L (136-145); Total Protein 7.1 g/dL (6.4-8.2)
--- NOTE | 2023-04-02 15:57 | ED.GENADUL_ITS ---
Discharge Plan Disposition Patient Disposition: Home Discharge Details Chief Complaint: FlankPain Clinical Impression: Kidney stone Primary Care Provider: Carlos Arboleda ED Provider: Ajith Wilhelm Home Meds and New Rx's Prescriptions: No Action bupropion HCl 300 mg tablet extended release 24 hr 300 mg PO QAM ascorbic acid (vitamin C) 500 mg tablet 1,000 mg PO DAILY tamsulosin [Flomax] 0.4 mg capsule 0.4 mg PO DAILY 5 Days Qty: 5 0RF Discharge Instructions Instructions: Kidney Stones (ED) Additional Instructions: Please call Dr. Koo's office in the morning as they will schedule you for an appointment around 9 AM. Please return to the emergency department for any worsening symptoms Stand Alone Forms: Work Release Referrals: Derek Koo MD [ [facility] STAFF PHYSICIAN] - 04/03/23 9:00 am Medical Decision Making 53-year-old male presents with persistent left flank pain in the setting of known left ureteral stone. Afebrile nontoxic no nausea no vomiting. Patient was able to urinate earlier this afternoon however feels like his incomplete voiding. High clinical suspicion for obstructing kidney stone versus ureteral spasm low suspicion for infectious process such as pyelonephritis or infected stone. We will repeat labs urinalysis, CT abdomen pelvis, fluid and analgesia. Disposition pending progress of stone consider admission/transfer for urology services 17: 36 patient resting more comfortably after meds. Discussed case with Dr. Koo of urology who would like to see patient in his office 9 AM tomorrow. HPI General Date/Time Provider Initiated Documentation: 04/02/23 15:05 . HPI Narrative: 53-year-old male recently diagnosed with left-sided ureteral stone presents with persistent left flank discomfort. Denies fevers chills nausea or vomiting. Related Data Home Medications Medication Instructions Recorded Confirmed bupropion HCl 300 mg 24 hr tablet, 300 mg PO QAM 10/10/18 04/02/23 extended release ascorbic acid (vitamin C) 500 mg 1,000 mg PO DAILY 03/24/22 04/02/23 tablet tamsulosin 0.4 mg capsule (Flomax) 0.4 mg PO DAILY 5 days #5 caps 04/01/23 04/02/23 Previous Rx's Medication Instructions Recorded tamsulosin 0.4 mg capsule (Flomax) 0.4 mg PO DAILY 5 days #5 caps 04/01/23 Allergies Allergy/AdvReac Type Severity Reaction Status Date / Time codeine AdvReac Intermediate Nausea Verified 04/01/23 20:40 meperidine HCl [From Demerol] AdvReac Intermediate Depression Verified 04/01/23 20:40 General Stated Complaint: FlankPain CAMRON: 3 Review of Systems Narrative: Review of Systems Constitutional: negative Eyes: negative ENT: negative Cardiovascular: negative Respiratory: negative Gastrointestinal: negative : Flank pain Musculoskeletal: negative Skin: negative Neurologic: negative Psych: negative PFSH All Active Problems (Updated 04/02/23 @ 17:38 by Ajith Wilhelm MD) Kidney stone on left side (Acute) Kidney stone (Chronic) Kidney stone (Chronic) Migraines (Chronic) Managed by ME Renal stones (Chronic) Normal colonoscopy (Acute ~04/07/22) Dermatitis (Acute 01/17/18) Depression (Chronic) Right ankle pain (Acute) Left elbow pain (Acute) Pain in right hand (Acute) Pain in right wrist (Acute) Carpal tunnel syndrome of right wrist (Acute) Trigger finger of right hand (Acute) Acute medial meniscus tear of right knee (Acute ~05/2021) Medical History History of broken leg PTSD (post-traumatic stress disorder) Per pt. announce self if patient is asleep before touching Surgical History Hemorrhoidectomy (07/23/18) thrombosed,gangrenous History of colonoscopy (~04/07/22) History of incision and drainage right hand History of open reduction and internal fixation (ORIF) procedure right middle finger Family History Mother , AGE 86 No problems noted. Father Cancer of neck Brother No problems noted. Sister No problems noted. 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 Pets and animals: No Sexually active: Yes Do you think of yourself as: straight/heterosexual Current gender identity: male What is your relationship status?: never How often do you talk on the phone with friends or family?: once per week How often do you get together with friends or relatives?: once per week How often do you attend synagogue or caodaism services?: 1-3 times per year Do you belong to any clubs or organized social groups?: no Panel score (0-1 are the most socially isolated patients): 0 NHANES result reviewed/action taken: Yes What type of physical activity do you participate in: walking and other Details: manual labor, 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 Duration: > 90 minutes/day Frequency: daily Ciarra/Yazdanism: Episcopalian Special ciarra needs: No Seatbelt use: always Helmet use: Yes Helmet use: always Drive intox or ride w/intox ambulance driver paramedic: No Do you feel safe at home: Yes (Pt lives alone) Do you feel safe in your relationship?: Yes Exam Narrative Exam Narrative: Physical Examination General: alert, awake, cooperative, resting comfortably, no acute distress HEENT: normocephalic, atraumatic; PERRL, EOM intact, conjunctiva normal; no nasal discharge; moist mucous membranes, oral and pharyngeal mucosa normal, tolerating secretions Neck: supple, trachea midline; full ROM Chest: normal to inspection Respiratory: normal respiratory effort, speaking in full sentences, clear to auscultation, no wheezing, rales or rhonchi Cardiac: regular rate, regular rhythm, S1S2 intact, no murmurs rubs or gallops GI: abdomen soft, non-tender, non-distended; no palpable mass or hepatosplenomegaly Skin: no lesions, rashes or trauma appreciated Neuro: AAOx3, normal speech, moving all extremities Psych: Appropriate mood and affect Course Vital Signs Vital signs: Vital Signs Temperature 37 C 04/02/23 15:00 Pulse 71 04/02/23 15:00 Respiratory Rate 18 04/02/23 15:00 Blood Pressure 110/72 04/02/23 15:00 Pulse Oximetry 98 04/02/23 15:00 Temperature 37 C 04/02/23 15:00 Temperature Source Oral 04/02/23 15:00 Pulse 71 04/02/23 15:00 Respiratory Rate 18 04/02/23 15:00 Respiratory Effort Normal, Non-Labored 04/02/23 15:08 Blood Pressure 110/72 04/02/23 15:00 Blood Pressure Position Sitting 04/02/23 15:00 Pulse Oximetry 98 04/02/23 15:00 Oxygen Delivery Method Room Air 04/02/23 15:00 Oxygen Flow Rate 0 04/02/23 15:00 Pain Level 7 04/02/23 15:32 Lab/Test Results Lab/Test Results: Laboratory Tests Range/Units 04/02/23 04/02/23 15:20 15:20 WBC (4.4-10.8) 10^3/uL 8.46 RBC (4.36-5.78) 10^6/uL 4.82 Hgb (13.5-17.5) g/dL 14.9 Hct (40.0-50.0) % 43.7 MCV (80-95) fL 91 MCH (27.0-33.0) pg 30.9 MCHC (32.0-36.0) % 34.1 RDW (11.8-14.1) % 12.0 Plt Count (130-400) 10^3/uL 239 MPV (8.0-11.0) fL 9.4 Immature Gran % 0.4 Neutrophils % 75.9 Lymphocytes % 11.1 Monocytes % 10.4 Eosinophils % 1.7 Basophils % 0.5 Nucleated RBC % (0.0-0.3) % 0.0 Absolute Neutrophils (1.2-6.7) 10^3/uL 6.43 Absolute Lymphocytes (1.2-3.4) 10^3/uL 0.94 L Absolute Monocytes (0.1-0.8) 10^3/uL 0.88 H Absolute Eosinophils (0.0-0.7) 10^3/uL 0.14 Absolute Basophils (0.0-0.2) 10^3/uL 0.04 Sodium (136-145) mmol/L 141 Potassium (3.5-5.1) mmol/L 3.9 Chloride (98-107) mmol/L 105 Carbon Dioxide (21.0-32.0) mmol/L 30.6 Anion Gap (3-11) mmol/L 5.4 BUN (7-18) mg/dL 17 Creatinine (0.70-1.30) mg/dL 1.7 H Est GFR (CKD-EPI 2020) (mL/min/1.73m2) 47.02 Glucose (74-106) mg/dL 98 Calcium (8.5-10.1) mg/dL 9.2 Total Bilirubin (0.2-1.0) mg/dL 0.6 AST (15-37) U/L 16 ALT (16-63) U/L 14 L Alkaline Phosphatase (46-116) U/L 108 Total Protein (6.4-8.2) g/dL 7.1 Albumin (3.4-5.0) g/dL 3.9
[2023-04-02 16:00] LABS: Bilirubin Negative (Negative); Blood Small (Negative); Clarity Clear (Clear); Glucose Negative (Negative); Ketones Trace mg/dL (Negative); Leukocyte Esterase Negative (Negative); Nitrite Negative (Negative); Specific Gravity 1.025 (1.005-1.025); Urobilinogen 0.2 mg/dL (Up to 0.2); pH 5.5 (5-8)
[2023-04-02 16:15] LABS: Bacteria Negative HPF (Negative); C & S Indicated? No; Casts Negative LPF (Negative); Crystals Few Calcium Oxalate HPF (Negative); Epithelial Cells Rare HPF (Negative); Mucus Negative (Negative); WBC 0-2 HPF (0-5)
[2023-04-02] MEDS: ACETAMINOPHEN 1,000 MG/100 ML BTL 400 MG IVPB (16:27)
[2023-04-02 17:54] VITALS: BP 131/73; PULSE 70; RESP 16; TEMP 36.6; O2SAT 96
== END 2023-04-02 17:56 | disposition home or self-care (01) ==
PROVIDERS: Emergency Provider Emergency Medicine; PCP Nurse Practitioner Family
DX: N20.0 Calculus of kidney (principal)
CPT/HCPCS: 36415; 80053; 96361; 96365; 96375; 99284; 74176; 81003; 81015; 85025; J0131; J1885

== ENCOUNTER 2023-04-03 12:13 | Day surgery (SDC) | payer BC, SELFPAY ==
[2023-04-03] VITALS (9 sets, daily range): BP systolic 95–112; BP diastolic 61–74; PULSE 57–75; RESP 10–16; TEMP 36.2–36.9; O2SAT 95–100; BMI 24.9
--- NOTE | 2023-04-03 12:28 | HPE_ITS ---
Date of service: 04/03/23 Time of Service: 12:28 Assessment and Plan Assessment and plan (1) Left ureteral stone: Status: Acute Assessment and plan: He has failed outpatient management. We will move forward with cystoscopy, left ureteroscopy with possible stone manipulation. If there is too much edema to safely access the stone today, we may need to simply place a ureteral stent and possibly return to the operating room at a later date to remove the stone. History of Present Illness History of Present Illness Chief Complaint: Left ureteral stone Narrative: This is a 53-year-old gentleman who previously has been seen in our office for ureteral stones. He was able to pass a stone about a year ago. His stone was 90% calcium oxalate monohydrate and 10% calcium phosphate. He recently has had multiple ER visits for the left flank pain. He was found to have a 3 mm left distal ureteral stone which has progressed somewhat, but he has not been able to tolerate outpatient management. He presents now for stone manipulation. He has no fever or chills. He does have some nausea but no vomiting. He has not seen any gross hematuria. He has not gone into retention, but does have the sensation of needing to void with only small volumes produced. Review of Systems Narrative: No fevers or chills No vision change or dysphasia No diabetes or thyroid dysfunction No shortness of breath, cough or hemoptysis No chest pain or palpitations No nausea, vomiting, hepatitis, ulcers, jaundice, diarrhea or constipation Hx migraine headaches. No seizures, strokes or peripheral neuropathy Hx skin cancer. No bleeding disorders or anemia Arthralgia. No gout PFSH All Active Problems Dermatitis (Acute 01/17/18) Depression (Chronic) Right ankle pain (Acute) Left elbow pain (Acute) Pain in right hand (Acute) Pain in right wrist (Acute) Carpal tunnel syndrome of right wrist (Acute) Trigger finger of right hand (Acute) Acute medial meniscus tear of right knee (Acute ~05/2021) Normal colonoscopy (Acute ~04/07/22) Left ureteral stone (Acute) Migraines (Chronic) Managed by MD Kidney stone (Chronic) Medical History History of broken leg PTSD (post-traumatic stress disorder) Per pt. announce self if patient is asleep before touching Surgical History (Updated 04/03/23 @ 12:45 by Edie Wagner) Hemorrhoidectomy (07/23/18) thrombosed,gangrenous History of colonoscopy (~04/07/22) History of incision and drainage right hand History of open reduction and internal fixation (ORIF) procedure right middle finger 04/03/23: Right index finger, per pt. -BR Family History Mother , AGE 86 No problems noted. Father Cancer of neck Brother No problems noted. Sister No problems noted. 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 Pets and animals: No Sexually active: Yes Do you think of yourself as: straight/heterosexual Current gender identity: male What is your relationship status?: never How often do you talk on the phone with friends or family?: once per week How often do you get together with friends or relatives?: once per week How often do you attend hindu or presybeterian services?: 1-3 times per year Do you belong to any clubs or organized social groups?: no Panel score (0-1 are the most socially isolated patients): 0 NHANES result reviewed/action taken: Yes What type of physical activity do you participate in: walking and other Details: manual labor, 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 Duration: > 90 minutes/day Frequency: daily Ciarra/Religious: Restorationist Special ciarra needs: No Seatbelt use: always Helmet use: Yes Helmet use: always Drive intox or ride w/intox team cdl driver: No Do you feel safe at home: Yes (Pt lives alone) Meds Allergies and Home Medications Allergies Allergy/AdvReac Type Severity Reaction Status Date / Time codeine AdvReac Intermediate Nausea Verified 04/03/23 12:44 meperidine HCl [From Demerol] AdvReac Intermediate Depression Verified 04/03/23 12:44 Home Medications Medication Instructions Recorded Confirmed Type bupropion HCl 300 mg 24 hr tablet, 300 mg PO QAM 10/10/18 04/03/23 History extended release ascorbic acid (vitamin C) 500 mg 1,000 mg PO DAILY 03/24/22 04/03/23 History tablet tamsulosin 0.4 mg capsule (Flomax) 0.4 mg PO DAILY 5 days #5 caps 04/01/23 04/03/23 Rx Exam Narrative Exam Narrative: He appears uncomfortable but does not appear septic or toxic His vital signs are documented elsewhere His chest wall motion is normal. He is not short of breath at rest. His lungs are clear Cardiac exam shows a regular rate and rhythm His abdomen is soft with no guarding or rebound tenderness He is awake, alert and oriented. I reviewed his CT scan on the PACS system. There is a small left distal ureteral stone along with multiple nonobstructing bilateral kidney stones. Time Spent Time spent with Patient: <40 minutes Time was spent: preparing to see the patient(eg.review tests) and counseling the patient
--- NOTE | 2023-04-03 12:48 | ANES.PREOP_ITS ---
General Info Date of Service Date Performed: 04/03/23 Surgical Procedure: Operation Date: 04/03/23 13:10 Proposed Procedure Side Surgeon p Cystoscopy, LEFT RETROGRADE PYLOGRAM, LEFT URETEROSCOPY, STONE MANIPULATION Left Derek Koo MD Meds Allergies and Home Medications Allergies Allergy/AdvReac Type Severity Reaction Status Date / Time codeine AdvReac Intermediate Nausea Verified 04/03/23 12:44 meperidine HCl [From Demerol] AdvReac Intermediate Depression Verified 04/03/23 12:44 Home Medication Medication Instructions Recorded bupropion HCl 300 mg 24 hr tablet, 300 mg PO QAM 10/10/18 extended release ascorbic acid (vitamin C) 500 mg 1,000 mg PO DAILY 03/24/22 tablet tamsulosin 0.4 mg capsule (Flomax) 0.4 mg PO DAILY 5 days #5 caps 04/01/23 Current Visit Medications: Current Medications Generic Name Dose Route Start Last Admin Trade Name Freq PRN Reason Stop Dose Admin Ringer's Solution 1,000 mls @ 80 mls/hr 04/03/23 06:00 IV 05/03/23 23:59 INFUSION SARAH Cefazolin Sodium/Dextrose 2 gm in 50 mls @ 100 mls/hr 04/03/23 12:00 Ancef Duplex IVPB 04/03/23 18:00 PREOP SARAH IV Miscellaneous Supplies 1 each 04/03/23 06:00 Iv Access IV 05/03/23 23:59 DIRECTED SARAH Sodium Chloride 0 ml 04/03/23 06:00 Normal Saline Flush 10 Ml Syr IV 05/03/23 23:59 PRN PRN Sodium Chloride 0 ml 04/03/23 06:00 Normal Saline 10 Ml Vial IJ 05/03/23 23:59 DIRECTED PRN Sterile Water 0 ml 04/03/23 06:00 Water,Injection,Sterile 10 Ml Vial IJ 05/03/23 23:59 DIRECTED PRN PFSH Active Problems Active Problems: Problem Status Onset Code Dermatitis 01/17/18 L30.9 Depression F32.9 Right ankle pain M25.571 Left elbow pain M25.522 Pain in right hand M79.641 Pain in right wrist M25.531 Carpal tunnel syndrome of right wrist G56.01 Trigger finger of right hand M65.30 Acute medial meniscus tear of right knee ~05/2021 S83.241A Normal colonoscopy ~04/07/22 Left ureteral stone N20.1 Migraines G43.909 Kidney stone N20.0 Medical History Medical History History of broken leg PTSD (post-traumatic stress disorder) Per pt. announce self if patient is asleep before touching Medical History Comments:: Gold fillings in upper teeth. Pt reports getting a headache with anesthesia Surgical History Surgical History (Updated 04/03/23 @ 12:45 by Edie Wagner) Hemorrhoidectomy (07/23/18) thrombosed,gangrenous History of colonoscopy (~04/07/22) History of incision and drainage right hand History of open reduction and internal fixation (ORIF) procedure right middle finger 04/03/23: Right index finger, per pt. -BR Tobacco Smoking/Tobacco Use Status: Former Tobacco Use Passive smoking exposure: Yes Alcohol Alcohol Intake: current Alcohol intake frequency: holidays/special occasions only Alcohol type: hard liquor Substance Use Substance use: Never Substance use type: does not use Vital Signs and Lab Results Lab Results Blood Type / Crossmatch: No Data to Display Complete Blood Count: White Blood Count 8.46 10^3/uL (4.4-10.8) 04/02/23 15:20 Red Blood Count 4.82 10^6/uL (4.36-5.78) 04/02/23 15:20 Hemoglobin 14.9 g/dL (13.5-17.5) 04/02/23 15:20 Hematocrit 43.7 % (40.0-50.0) 04/02/23 15:20 Platelet Count 239 10^3/uL (130-400) 04/02/23 15:20 Complete Metabolic Panel: Sodium 141 mmol/L (136-145) 04/02/23 15:20 Potassium 3.9 mmol/L (3.5-5.1) 04/02/23 15:20 Chloride 105 mmol/L (98-107) 04/02/23 15:20 Carbon Dioxide 30.6 mmol/L (21.0-32.0) 04/02/23 15:20 BUN 17 mg/dL (7-18) 04/02/23 15:20 Creatinine 1.7 mg/dL (0.70-1.30) H 04/02/23 15:20 Est GFR (CKD-EPI 2020) 47.02 (mL/min/1.73m2) 04/02/23 15:20 Calcium 9.2 mg/dL (8.5-10.1) 04/02/23 15:20 Albumin 3.9 g/dL (3.4-5.0) 04/02/23 15:20 Glucose 98 mg/dL (74-106) 04/02/23 15:20 Liver Function Panel: Alanine Aminotransferase (ALT/SGPT) 14 U/L (16-63) L 04/02/23 1 5:20 Aspartate Amino Transf (AST/SGOT) 16 U/L (15-37) 04/02/23 15:20 Coagulation Panel: No Data to Display Cardiac Panel: No Data to Display Arterial Blood Gas: No Data to Display Venous Blood Gas: No Data to Display Pancreas Panel: No Data to Display Thyroid Panel: No Data to Display Infectious Disease: No Data to Display Blood Cultures: No Data to Display Toxicology Panel: No Data to Display Anesthesia Assessment and Plan Anesthesia History Personal History: No History of Anesthesia Complications Family History: No Family History of Anesthesia Complications Exercise Tolerance Exercise Tolerance: Metabolic Equivalents>4 Implantable Cardiac Device Does patient have a Pacemaker or an ICD?: No Airway Exam Known Difficult Airway: No Mallampati Class: 3 Mouth Opening: Normal (> 3cm) Thyromental Distance: Greater than 3 cm Neck Range of Motion: Full ROM Neck Circumference: Normal Teeth Condition: Normal Dentition
[2023-04-03] MEDS: Lactated Ringers 1,000 ML 80 ML IV (13:08)
--- NOTE | 2023-04-03 13:24 | ANES.PREOP_ITS ---
General Info Date of Service Date Performed: 04/03/23 Height: 6 ft Weight: 83.4 kg Body Mass Index (BMI): 24.9 Surgical Procedure: Operation Date: 04/03/23 13:10 Proposed Procedure Side Surgeon p Cystoscopy, LEFT RETROGRADE PYLOGRAM, LEFT URETEROSCOPY, STONE MANIPULATION Left Derek Koo MD Meds Allergies and Home Medications Allergies Allergy/AdvReac Type Severity Reaction Status Date / Time codeine AdvReac Intermediate Nausea Verified 04/03/23 12:44 meperidine HCl [From Demerol] AdvReac Intermediate Depression Verified 04/03/23 12:44 Home Medication Medication Instructions Recorded bupropion HCl 300 mg 24 hr tablet, 300 mg PO QAM 10/10/18 extended release ascorbic acid (vitamin C) 500 mg 1,000 mg PO DAILY 03/24/22 tablet tamsulosin 0.4 mg capsule (Flomax) 0.4 mg PO DAILY 5 days #5 caps 04/01/23 Current Visit Medications: Current Medications Generic Name Dose Route Start Last Admin Trade Name Freq PRN Reason Stop Dose Admin Ringer's Solution 1,000 mls @ 80 mls/hr 04/03/23 06:00 04/03/23 13:08 IV 05/03/23 23:59 80 mls/hr INFUSION SARAH Administration Cefazolin Sodium/Dextrose 2 gm in 50 mls @ 100 mls/hr 04/03/23 12:00 Ancef Duplex IVPB 04/03/23 18:00 PREOP SARAH IV Miscellaneous Supplies 1 each 04/03/23 06:00 Iv Access IV 05/03/23 23:59 DIRECTED SARAH Sodium Chloride 0 ml 04/03/23 06:00 Normal Saline Flush 10 Ml Syr IV 05/03/23 23:59 PRN PRN Sodium Chloride 0 ml 04/03/23 06:00 Normal Saline 10 Ml Vial IJ 05/03/23 23:59 DIRECTED PRN Sterile Water 0 ml 04/03/23 06:00 Water,Injection,Sterile 10 Ml Vial IJ 05/03/23 23:59 DIRECTED PRN PFSH Active Problems Active Problems: Problem Status Onset Code Dermatitis 01/17/18 L30.9 Depression F32.9 Right ankle pain M25.571 Left elbow pain M25.522 Pain in right hand M79.641 Pain in right wrist M25.531 Carpal tunnel syndrome of right wrist G56.01 Trigger finger of right hand M65.30 Acute medial meniscus tear of right knee ~05/2021 S83.241A Normal colonoscopy ~04/07/22 Left ureteral stone N20.1 Migraines G43.909 Kidney stone N20.0 Medical History Medical History History of broken leg PTSD (post-traumatic stress disorder) Per pt. announce self if patient is asleep before touching Medical History Comments:: Gold fillings in upper teeth. Pt reports getting a headache with anesthesia Surgical History Surgical History (Updated 04/03/23 @ 12:45 by Edie Wagner) Hemorrhoidectomy (07/23/18) thrombosed,gangrenous History of colonoscopy (~04/07/22) History of incision and drainage right hand History of open reduction and internal fixation (ORIF) procedure right middle finger 04/03/23: Right index finger, per pt. -BR Tobacco Smoking/Tobacco Use Status: Former Tobacco Use Passive smoking exposure: Yes Alcohol Alcohol Intake: current Alcohol intake frequency: holidays/special occasions only Alcohol type: hard liquor Substance Use Substance use: Never Substance use type: does not use Vital Signs and Lab Results Vital Signs Most Recent Vital Signs in EMR: Most Recent Vital Signs Temp Pulse Resp BP Pulse Ox 36.9 C 72 16 95/74 L 98 04/03/23 12:49 04/03/23 12:49 04/03/23 12:49 04/03/23 12:49 04/03/23 12:49 Lab Results Blood Type / Crossmatch: No Data to Display Complete Blood Count: White Blood Count 8.46 10^3/uL (4.4-10.8) 04/02/23 15:20 Red Blood Count 4.82 10^6/uL (4.36-5.78) 04/02/23 15:20 Hemoglobin 14.9 g/dL (13.5-17.5) 04/02/23 15:20 Hematocrit 43.7 % (40.0-50.0) 04/02/23 15:20 Platelet Count 239 10^3/uL (130-400) 04/02/23 15:20 Complete Metabolic Panel: Sodium 141 mmol/L (136-145) 04/02/23 15:20 Potassium 3.9 mmol/L (3.5-5.1) 04/02/23 15:20 Chloride 105 mmol/L (98-107) 04/02/23 15:20 Carbon Dioxide 30.6 mmol/L (21.0-32.0) 04/02/23 15:20 BUN 17 mg/dL (7-18) 04/02/23 15:20 Creatinine 1.7 mg/dL (0.70-1.30) H 04/02/23 15:20 Est GFR (CKD-EPI 2020) 47.02 (mL/min/1.73m2) 04/02/23 15:20 Calcium 9.2 mg/dL (8.5-10.1) 04/02/23 15:20 Albumin 3.9 g/dL (3.4-5.0) 04/02/23 15:20 Glucose 98 mg/dL (74-106) 04/02/23 15:20 Liver Function Panel: Alanine Aminotransferase (ALT/SGPT) 14 U/L (16-63) L 04/02/23 1 5:20 Aspartate Amino Transf (AST/SGOT) 16 U/L (15-37) 04/02/23 15:20 Coagulation Panel: No Data to Display Cardiac Panel: No Data to Display Arterial Blood Gas: No Data to Display Venous Blood Gas: No Data to Display Pancreas Panel: No Data to Display Thyroid Panel: No Data to Display Infectious Disease: No Data to Display Blood Cultures: No Data to Display Toxicology Panel: No Data to Display Anesthesia Assessment and Plan Anesthesia History Personal History: No History of Anesthesia Complications Family History: No Family History of Anesthesia Complications Exercise Tolerance Exercise Tolerance: Metabolic Equivalents>4 Pertinent Negatives Pertinent Negatives: No Symptoms of GERD, No Major Cardiovascular Symptoms or Complaints, No Major Pulmonary Symptoms or Complaints and No History of CVA/TIA Cardiac & Pulmonary Exam Cardiac Exam: Normal S1/S2 Heart Sounds Pulmonary Exam: Clear Bilateral Breath Sounds and No cough or Cold Implantable Cardiac Device Does patient have a Pacemaker or an ICD?: No Airway Exam Known Difficult Airway: No Mallampati Class: 3 Mouth Opening: Narrow (< 3cm) Thyromental Distance: Greater than 3 cm Facial Hair: Full Bains Neck Range of Motion: Full ROM Neck Circumference: Normal Teeth Condition: Normal Dentition ASA Classification ASA Score: ASA 2 Emergency Case?: Yes NPO Status NPO Status: NPO Clears >2 hours, Solids >8 hours Anesthesia Plan Resuscitation Status: Full Code Anesthesia Technique: General Anesthesia Airway Planned: LMA Monitors Used: Standard Monitors
[2023-04-03] MEDS: ceFAZolin 2 GM/50 ML BAG IVPB (13:57)
[2023-04-03] MEDS: Lidocaine 2% Jelly 6 ML SYR (14:12)
--- NOTE | 2023-04-03 14:23 | DI.RAD_ITS ---
Exam(s) XR RETROGRADE IN OR EXAM: XR RETROGRADE IN OR CLINICAL HISTORY: left ureteral stone. TECHNIQUE: 2D digital imaging was performed. COMPARISON: No exams were available for comparison FINDINGS: Fluoroscopy provided during retrograde left urinary tract procedure by the urologist. See procedure report for details. Total fluoroscopy time 18 seconds. IMPRESSION: Radiation exposure index/cumulative dose: geeta Bell= 2.8107mGy DATA REPOSITORY: RADIATION DOSE DELIVERED:
--- NOTE | 2023-04-03 14:30 | ROE_ITS ---
Date of service: 04/03/23 Time of Service: 14:30 Operative Note Operative Note DATE OF PROCEDURE: 04/03/23 PRE-OP DIAGNOSIS: Left ureteral stone POST-OP DIAGNOSIS: same PROCEDURE: cystoscopy, left retrograde pyelogram, left ureteral dilation, left ureteroscopy with stone extraction SURGEON: Derek Koo ANESTHESIA TYPE: Local By Surgeon and General:No Airway Refer to Anesthesia Record ESTIMATED BLOOD LOSS: 5 PATHOLOGY: other (stone for chemical analysis) COMPLICATIONS: None Patient was transported to: PACU Patient's condition: stable Implants: none Indications: This is a 53-year-old gentleman who does have a past history of renal stones. He passed a left-sided ureteral stone about a year ago. The stone composition was 90% calcium oxalate monohydrate and 10% calcium phosphate. He presented back to the emergency department earlier this week with left flank pain. He was found to have a left distal ureteral stone. He has failed outpatient management and has had multiple trips back to the emergency department. He presents now for stone manipulation. Findings: edematous left ureteral orifice small left distal ureteral stone Procedure Description: The patient was given preoperative IV antibiotics and brought to the operating room on 04/03/2023. After successful induction of general anesthesia, he was placed in the dorsal lithotomy position. His genitalia was prepped and draped sterilely. 2% Xylocaine jelly was instilled into the urethra to act as a local anesthetic. A 22 Kenyan rigid cystoscope was passed through the urethra into the bladder. The urethra and bladder were inspected with a 30 degree lens. The pendulous, bulbar and membranous urethra appeared normal with no strictures. The prostatic urethra showed some lateral lobe enlargement but no significant median lobe. The bladder neck was entered and the bladder mucosa was inspected. The right ureteral orifice appeared normal. The left orifice was quite edematous. I had some difficulty passing a 5 Kenyan access catheter into the right ureteral orifice but ultimately was able to pass the catheter. I then injected Omnipaque through the access catheter to outline the ureter. I was able to pass a guidew denver through the lumen of the access catheter and advanced the wire up the remainder the ureter. There was a filling defect in the distal ureter consistent with his known stone. I was unable to pass the semirigid ureteroscope directly into the right ureteral orifice, so I was able to dilate the orifice with a 4 cm UroMax balloon. The scope could then be easily passed. The distal ureter above the edematous area was dilated and a stone was seen in the lumen of the ureter. The stone was grasped in a Elysia stone basket and removed in its entirety. Because of the minimal trauma involved with the stone removal, we elected not to place a ureteral stent. The guidewire was removed. The patient tolerated this procedure well with no complications.
--- NOTE | 2023-04-03 14:35 | W.PM.DSUDISC ---
Date of service: 04/03/23 Time of Service: 14:36 Discharge Plan Disposition Patient Disposition: Home Condition: Stable Discharge Details Reason For Visit: ureteroscopy Attending Provider: Derek Koo Primary Care Provider: Carlos Arboleda Home Meds and New Rx's Prescriptions: No Action bupropion HCl 300 mg tablet extended release 24 hr 300 mg PO QAM ascorbic acid (vitamin C) 500 mg tablet 1,000 mg PO DAILY Patient Comments: 04/03/23: Pt reports he is not taking. -BR tamsulosin [Flomax] 0.4 mg capsule 0.4 mg PO DAILY 5 Days Qty: 5 0RF Discharge Instructions Additional Instructions: no need to strain urine do not be surprised by blood in the urine over the next 3 to 5 days ureteral spasms/discomfort should inprove in next 24 to 48 hours followup appt @ 4 to 8 weeks for renal ultrasound to be done in office Activity:: Activity as Tolerated Shower/Bathe:: 24 hours Diet:: As Tolerated Discharge Orders Discharge Orders: Discharge Order (Routine); Ordered 04/03/23 Ordered By: Deerk Koo DS: Diagnosis Discharge Diagnosis (1) Left ureteral stone: Status: Acute
--- NOTE | 2023-04-03 15:34 | W.ANESPOSTOP ---
Postoperative Evaluation Date, Time and Location Date Performed: 04/03/23 Time Performed: 15:44 Patient Location: PACU Vital Signs Most Recent Imported Vital Signs: Most Recent Vital Signs Temp Pulse Resp BP Pulse Ox 36.8 C 57 L 10 L 110/66 98 04/03/23 15:28 04/03/23 15:28 04/03/23 15:28 04/03/23 15:28 04/03/23 15:28 Pain Score Most Recent Pain Score: Most Recent Pain Score Pain Level 0 04/03/23 15:28 Assessment Mental Status: Awake (Alert & Oriented to Patient Baseline) Airway and Respiratory Function: Patent airway with normal (patient baseline) respiratory exam Cardiovascular Function: Hemodynamically Stable Hydration Status: Adequately Hydrated Nausea & Vomiting: No Nausea or Vomiting Pain: Pt. Denies Any Pain Peripheral Nerve Block: Patient did not receive a nerve block
--- NOTE | 2023-04-03 15:48 | W.ANESPOSTOP ---
Postoperative Evaluation Date, Time and Location Date Performed: 04/03/23 Time Performed: 15:48 Patient Location: PACU Vital Signs Most Recent Imported Vital Signs: Most Recent Vital Signs Temp Pulse Resp BP Pulse Ox 36.8 C 57 L 10 L 110/66 98 04/03/23 15:28 04/03/23 15:28 04/03/23 15:28 04/03/23 15:28 04/03/23 15:28 Pain Score Most Recent Pain Score: Most Recent Pain Score Pain Level 0 04/03/23 15:28 Assessment Mental Status: Awake (Alert & Oriented to Patient Baseline) Airway and Respiratory Function: Patent airway with normal (patient baseline) respiratory exam Cardiovascular Function: Hemodynamically Stable Hydration Status: Adequately Hydrated Nausea & Vomiting: No Nausea or Vomiting Pain: Pt. Denies Any Pain Peripheral Nerve Block: Patient did not receive a nerve block
[2023-04-03] MEDS: Phenazopyridine 200 MG TAB PO (16:15)
[2023-04-11 16:01] LABS: Source: Left Ureter
== END 2023-04-03 16:58 | disposition home or self-care (01) ==
PROVIDERS: PCP Nurse Practitioner Family; Visit Provider Urology
PROC: (CPT 52352; principal; 2023-04-03 13:00)
DX: N20.1 Calculus of ureter (principal)
CPT/HCPCS: 52352; 52341; 74420; 82365; J0690; J1100; J1885; J2405; J2704

== ENCOUNTER 2023-09-18 06:29 | Emergency (ER) | payer BC, SELFPAY ==
[2023-09-18] VITALS (13 sets, daily range): BP systolic 112–138; BP diastolic 67–87; PULSE 54–72; RESP 13–18; TEMP 36.7; O2SAT 99
--- NOTE | 2023-09-18 06:30 | DI.CT_ITS ---
Exam(s) CT ABDOMEN PELVIS WO EXAM: CT ABDOMEN PELVIS WO CLINICAL HISTORY: bilateral flank pain, hx of stones. TECHNIQUE: Imaging Protocol: Axial computed tomography images with coronal and sagittal reformatted images were created and reviewed. COMPARISON: CT CT ABDOMEN PELVIS WO from 04/02/2023 FINDINGS: Lung Bases: Normal where visualized. Liver: Normal density. No measurable mass. Gallbladder and biliary tract: No radiodense calculus or biliary ductal dilation. Pancreas: Normal density, no abnormal calcifications or inflammatory process. Spleen: Normal. Kidneys: Normal size, contour and axis.6 millimeter stone upper to mid left kidney. No masses seen. Mild right hydronephrosis secondary to 2 millimeter stone just above the ureterovesical junction. Adrenal glands: No mass is seen. Lymph nodes: Within normal limits. Abdominal Aorta: Abdominal portion non-dilated. Bladder:Empty. Not well evaluated. Bowel: No obstruction or bowel wall thickening. Peritoneal cavity: No ascites, collection or mesenteric inflammatory response Reproductive organs: Within normal limits. degenerative changes in the lower lumbar spine. Soft Tissues: Within normal limits. IMPRESSION: mild right hydronephrosis secondary to a 2 millimeter stone just above the ureterovesical junction. Additional 6 millimeter nonobstructing left renal calculus. RADIATION DOSE DELIVERED: Total DLP Total DLP DATA REPOSITORY: All CT scans at this facility are submitted to the National Radiology Data Registry (NRDR) Dose Index Registry (DIR) with the [employer] (ACR). RADIATION OPTIMIZATION: All CT scans at this facility use at least one of these dose optimization te chniques: automated exposure control; mA and/or kV adjustment per patient size (includes targeted exa ms where dose is matched to clinical indication); or iterative reconstruction.
[2023-09-18] MEDS: Normal Saline 1,000 ML 1000 ML IV ×2 (06:45→10:33)
[2023-09-18 06:50] LABS: Abs Immature Grans 0.02 10^3/uL (0.0-0.06); Absolute Basophil Count 0.04 10^3/uL (0.0-0.2); Absolute Monocyte Count 0.63 10^3/uL (0.1-0.8); Absolute Neutrophil Count 3.22 10^3/uL (1.2-6.7); Basophils % 0.7; Eosinophils % 5.3; HCT 45.4 % (40.0-50.0); HGB 15.1 g/dL (13.5-17.5); Immature Grans % 0.4; MCH 30.4 pg (27.0-33.0); MCHC 33.3 % (32.0-36.0); MCV 91 fL (80-95); MPV 9.3 fL (8.0-11.0); Monocytes % 11.2; Neutrophils % 57.4; Platelet Count 235 10^3/uL (130-400); RBC 4.97 10^6/uL (4.36-5.78); RDW 11.9 % (11.8-14.1); RDW-SD 39.9 fL; WBC 5.61 10^3/uL (4.4-10.8)
[2023-09-18] MEDS: Ketorolac 15 MG/ML VIAL IVP ×2 (06:50→09:23)
[2023-09-18] MEDS: Tamsulosin 0.4 MG CAPCR PO (06:51)
[2023-09-18] MEDS: Ondansetron 4 MG/2 ML VIAL IVP (06:51)
[2023-09-18 06:54] LABS: Bilirubin Negative (Negative); Blood Moderate (Negative); Clarity Clear (Clear); Glucose Negative (Negative); Ketones Negative (Negative); Leukocyte Esterase Negative (Negative); Nitrite Negative (Negative); Specific Gravity >= 1.030 (1.005-1.025); Urobilinogen 0.2 mg/dL (Up to 0.2); pH 5.5 (5-8)
[2023-09-18 07:00] LABS: Bacteria Negative HPF (Negative); C & S Indicated? No; Casts Negative LPF (Negative); Crystals Negative HPF (Negative); Epithelial Cells Rare HPF (Negative); Mucus Trace (Negative); RBC 20-50 HPF (0-2); WBC 0-2 HPF (0-5)
--- NOTE | 2023-09-18 07:00 | ED.GENADUL_ITS ---
Discharge Plan Disposition Patient Disposition: Home Condition: Improving Discharge Details Clinical Impression: Kidney stone on right side Primary Care Provider: Carlos Arboleda ED Provider: Ajith Wilhelm Home Meds and New Rx's Prescriptions: New ketorolac 10 mg tablet 10 mg PO TID 5 Days Qty: 15 0RF tamsulosin [Flomax] 0.4 mg capsule 0.4 mg PO DAILY Qty: 10 0RF No Action bupropion HCl 300 mg tablet extended release 24 hr 300 mg PO QAM ascorbic acid (vitamin C) 500 mg tablet 1,000 mg PO DAILY Patient Comments: 04/03/23: Pt reports he is not taking. -BR Discharge Instructions Instructions: Kidney Stones (ED) Additional Instructions: At this time you have evidence of a small kidney stone that is almost out. It is right at the edge of the bladder. Please continue to take the Flomax and Tor adol/ketorolac as directed. Is been sent to your pharmacy on file. Use the nausea pills that we sent home with you only as needed for nausea. Please also take 1000 mg of Tylenol every 6 hours to help with the pain. Please use the bladder strainer to catch your stone. Please follow-up closely with your primary care provider or urology for reassessment. If you notice any worsening of your symptoms, or any new symptoms such as vomiting, diarrhea, fever, chills, shortness of breath, chest pain, numbness, weakness, or fainting , please return immediately to the emergency department for reevaluation. Please follow up with your primary care provider as soon as possible for reassessment and reevaluation. As always, it was a pleasure participating in your medical care today. Referrals: Carlos Arboleda NP [Primary Care Provider] - Derek Koo MD [ [facility] STAFF PHYSICIAN] - Medical Decision Making <Maurice Smith DO - Last Filed: 09/18/23 07:54> 53-year-old male with a past medical history of kidney stones presents today for evaluation of right flank pain. Patient states that pain began 24 hours ago in his right flank and is traveled down anteriorly. He denies any diarrhea. He denies any blood in his urine. He does admit to vomiting secondary to pain. He states that this feels identical to his previous kidney stones. He denies any fever or chills. No other complaints at this time. He did take Tylenol yesterday with only minimal improvement. Exam demonstrates a male that is in pain, mild CVA tenderness. Vital signs stable. Suspect kidney stone. No genital pain or tenderness. Will give Toradol, Flomax, IV fluids, get a CT scan monitor closely and reassess. 7:[address] scan shows evidence of a punctate stone just proximal to the UVJ on the right. Mild hydroureter. Pending formal read from CT scan at this time. Urinalysis shows no evidence of infection. Renal function is normal. Will give Toradol and Flomax prescription for home. CT scan shows 2 mm stone in the right distal ureter immediately proximal to the ureterovesicular junction. Patient feels better but is very concerned that his pain is still mildly present. He states that last time he did have to come back and eventually had the stone removed. With the size of the stone location I am hopeful that this will not be the case in this scenario. Patient is asking for repeat dose of pain medications prior to him feeling comfortable leaving. Will give additional medications with plan for expected discharge if pain resolves. <Ajith Wilhelm MD - Last Filed: 09/18/23 10:30> 53-year-old male with a past medical history of kidney stones presents today for evaluation of right flank pain. Patient states that pain began 24 hours ago in his right flank and is traveled down anteriorly. He denies any diarrhea. He denies any blood in his urine. He does admit to vomiting secondary to pain. He states that this feels identical to his previous kidney stones. He denies any fever or chills. No other complaints at this time. He did take Tylenol yesterday with only minimal improvement. Exam demonstrates a male that is in pain, mild CVA tenderness. Vital signs stable. Suspect kidney stone. No genital pain or tenderness. Will give Toradol, Flomax, IV fluids, get a CT scan monitor closely and reassess. 7:[address] scan shows evidence of a punctate stone just proximal to the UVJ on the right. Mild hydroureter. Pending formal read from CT scan at this time. Urinalysis shows no evidence of infection. Renal function is normal. Will give Toradol and Flomax prescription for home. CT scan shows 2 mm stone in the right distal ureter immediately proximal to the ureterovesicular junction. Patient feels better but is very concerned that his pain is still mildly present. He states that last time he did have to come back and eventually had the stone removed. With the size of the stone location I am hopeful that this will not be the case in this scenario. Patient is asking for repeat dose of pain medications prior to him feeling comfortable leaving. Will give additional medications with plan for expected discharge if pain resolves. 10: 30 patient feeling much better after medications and rest. We will follow- up with urology HPI <Maurice Smith DO - Last Filed: 09/18/23 07:54> General Date/Time Provider Initiated Documentation: 09/18/23 06:31 . HPI Narrative: 53-year-old male with a past medical history of kidney stones presents today for evaluation of right flank pain. Patient states that pain began 24 hours ago in his right flank and is traveled down anteriorly. He denies any diarrhea. He denies any blood in his urine. He does admit to vomiting secondary to pain. He states that this feels identical to his previous kidney stones. He denies any fever or chills. No other complaints at this time. He did take Tylenol yesterday with only minimal improvement. Related Data Home Medications Medication Instructions Recorded Confirmed bupropion HCl 300 mg 24 hr tablet, 300 mg PO QAM 10/10/18 09/18/23 extended release ascorbic acid (vitamin C) 500 mg 1,000 mg PO DAILY 03/24/22 09/18/23 tablet ketorolac 10 mg tablet 10 mg PO TID 5 days #15 tabs 09/18/23 tamsulosin 0.4 mg capsule (Flomax) 0.4 mg PO DAILY #10 caps 09/18/23 Previous Rx's Medication Instructions Recorded ketorolac 10 mg tablet 10 mg PO TID 5 days #15 tabs 09/18/23 tamsulosin 0.4 mg capsule (Flomax) 0.4 mg PO DAILY #10 caps 09/18/23 Allergies Allergy/AdvReac Type Severity Reaction Status Date / Time codeine AdvReac Intermediate Nausea Verified 09/18/23 06:41 meperidine HCl [From Demerol] AdvReac Intermediate Depression Verified 09/18/23 06:41 General Stated Complaint: FlankPain CAMRON: 3 Review of Systems <DO Jesus Servin Last Filed: 09/18/23 07:54> All systems reviewed & are unremarkable except as noted in HPI and below PFSH <Maurice Smith DO - Last Filed: 09/18/23 07:54> All Active Problems (Updated 09/18/23 @ 07:04 by Maurice Smith DO) Kidney stone on right side (Acute) Dermatitis (Acute 01/17/18) Depression (Chronic) Right ankle pain (Acute) Left elbow pain (Acute) Pain in right hand (Acute) Pain in right wrist (Acute) Carpal tunnel syndrome of right wrist (Acute) Trigger finger of right hand (Acute) Acute medial meniscus tear of right knee (Acute ~05/2021) Normal colonoscopy (Acute ~04/07/22) Migraines (Chronic) Managed by [facility] Medical History Left ureteral stone History of broken leg PTSD (post-traumatic stress disorder) Per pt. announce self if patient is asleep before touching Surgical History History of colonoscopy (~04/07/22) History of open reduction and internal fixation (ORIF) procedure right middle finger 04/03/23: Right index finger, per pt. -BR History of incision and drainage right hand Hemorrhoidectomy (07/23/18) thrombosed,gangrenous Family History Mother , AGE 86 No problems noted. Father Cancer of neck Brother No problems noted. Sister No problems noted. 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 Pets and animals: No Sexually active: Yes Do you think of yourself as: straight/heterosexual Current gender identity: male What is your relationship status?: never How often do you talk on the phone with friends or family?: once per week How often do you get together with friends or relatives?: once per week How often do you attend latter-day or mandaeism services?: 1-3 times per year Do you belong to any clubs or organized social groups?: no Panel score (0-1 are the most socially isolated patients): 0 NHANES result reviewed/action taken: Yes What type of physical activity do you participate in: walking and other Details: manual labor, 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 Duration: > 90 minutes/day Frequency: daily Ciarra/Protestant: Yazidi Special ciarra needs: No Seatbelt use: always Helmet use: Yes Helmet use: always Drive intox or ride w/intox retail delivery driver: No Do you feel safe at home: Yes (Pt lives alone) Do you feel safe in your relationship?: Yes Exam <Maurice Smith DO - Last Filed: 09/18/23 07:54> Narrative Exam Narrative: 1.Const: Well-nourished, Well-developed, appearing stated age 2.Eyes: PERRL, no conjunctival injection, and symmetrical lids. 3.ENT: Atraumatic external nose and ears. Moist MM. Neck: Symmetric, trachea midline, No thyromegaly. 4.CVS: +S1/S2, No murmurs or gallops. Peripheral pulses 2+ and equal in all extremities. Brisk capillary refill in all extremities. 5.RESP: Unlabored respiratory effort. Clear to auscultation bilaterally. No wheezes rales or rhonchi 6.GI: Soft, Nontender/Nondistended, No hepatosplenomegaly. No guarding or rebound. Mild right-sided CVA tenderness 7.MSK: Normocephalic/Atraumatic, Extremities w/o deformity or ttp No cyanosis or clubbing, Normal movement of all extremities 8.Skin: Warm, Dry. No rashes or lesions. 9.Neuro: trash collector II-XII grossly intact. Sensation grossly intact, no focal neuro logic deficits. 10.Psych: (AAO) x3. Appropriate mood and affect Course <Maurice Smith DO - Last Filed: 09/18/23 07:54> Vital Signs Vital signs: Vital Signs Temperature 36.7 C 09/18/23 06:35 Pulse 68 09/18/23 06:35 Respiratory Rate 18 09/18/23 06:35 Blood Pressure 135/78 09/18/23 06:35 Pulse Oximetry 99 09/18/23 06:35 Temperature 36.7 C 09/18/23 06:41 Temperature Source Temporal Artery Scan 09/18/23 06:41 Pulse 72 09/18/23 06:41 Respiratory Rate 18 09/18/23 06:41 Respiratory Effort Normal, Non-Labored 09/18/23 06:41 Blood Pressure 135/78 09/18/23 06:41 Blood Pressure Position Supine 09/18/23 06:41 Pulse Oximetry 99 09/18/23 06:41 Oxygen Delivery Method Room Air 09/18/23 06:41 Oxygen Flow Rate 0 09/18/23 06:35 Pain Level 9 09/18/23 06:41 Lab/Test Results Lab/Test Results: Laboratory Tests Range/Units 09/18/23 09/18/23 06:40 06:44 WBC (4.4-10.8) 10^3/uL 5.61 RBC (4.36-5.78) 10^6/uL 4.97 Hgb (13.5-17.5) g/dL 15.1 Hct (40.0-50.0) % 45.4 MCV (80-95) fL 91 MCH (27.0-33.0) pg 30.4 MCHC (32.0-36.0) % 33.3 RDW (11.8-14.1) % 11.9 Plt Count (130-400) 10^3/uL 235 MPV (8.0-11.0) fL 9.3 Immature Gran % 0.4 Neutrophils % 57.4 Lymphocytes % 25.0 Monocytes % 11.2 Eosinophils % 5.3 Basophils % 0.7 Nucleated RBC % (0.0-0.3) % 0.0 Absolute Neutrophils (1.2-6.7) 10^3/uL 3.22 Absolute Lymphocytes (1.2-3.4) 10^3/uL 1.40 Absolute Monocytes (0.1-0.8) 10^3/uL 0.63 Absolute Eosinophils (0.0-0.7) 10^3/uL 0.30 Absolute Basophils (0.0-0.2) 10^3/uL 0.04 Urine Color (Yellow) Yellow Urine Clarity (Clear) Clear Urine pH (5-8) 5.5 Ur Specific [place] (1.005-1.025) >= 1.030 H Urine Protein (Negative) mg/dL Negative Urine Ketones (Negative) mg/dL Negative Urine Blood (Negative) Moderate H Urine Nitrite (Negative) Negative Urine Bilirubin (Negative) Negative Urine Urobilinogen (Up to 0.2) mg/dL 0.2 Ur Leukocyte Esterase (Negative) Negative Urine RBC (0-2) HPF 20-50 H Urine WBC (0-5) HPF 0-2 Ur Epithelial Cells (Negative) HPF Rare Urine Crystals (Negative) HPF Negative Urine Bacteria (Negative) HPF Negative Urine Casts (Negative) LPF Negative Urine Mucus (Negative) Trace Ur Culture Indicated? No Urine Glucose (Negative) mg/dL Negative Sign Out <Maurice Smith DO - Last Filed: 09/18/23 07:54> Sign Out Data: Sign Out Comment: Pending pain control after medication administration. Discharge instructions very for discharge. 2 mm stone, no infection. Good renal function. Last updated by Maurice Smith DO at 09/18/23 07:54
[2023-09-18 07:06] LABS: ALT 14 U/L (16-63); AST 16 U/L (15-37); Alkaline Phosphatase 103 U/L (46-116); Anion Gap 9.1 mmol/L (3-11); BUN 18 mg/dL (7-18); Bilirubin, Total 0.6 mg/dL (0.2-1.0); CO2 30.9 mmol/L (21.0-32.0); CREATININE 1.2 mg/dL (0.70-1.30); Calcium 9.2 mg/dL (8.5-10.1); Chloride 102 mmol/L (98-107); Estimated GFR 71.42 (mL/min/1.73m2); Glucose 112 mg/dL (74-106); Potassium 3.4 mmol/L (3.5-5.1); Sodium 142 mmol/L (136-145); Total Protein 7.4 g/dL (6.4-8.2)
[2023-09-18] MEDS: ACETAMINOPHEN 1,000 MG/100 ML BTL 400 MG IVPB (07:06)
--- NOTE | 2023-09-18 07:47 | DI.VRAD_ITS ---
PROCEDURE INFORMATION: Exam: CT Abdomen And Pelvis Without Contrast Exam date and time: 09/18/2023 6:57 AM Age: 53 years old Clinical indication: Prior surgery; Surgery date: 6+ months; Surgery type: Appendectomy; Patient HX: Bilateral flank pain, HX of stones TECHNIQUE: Imaging protocol: Computed tomography of the abdomen and pelvis without contrast. Radiation optimization: All CT scans at this facility use at least one of these dose optimization techniques: automated exposure control; mA and/or kV adjustment per patient size (includes targeted exams where dose is matched to clinical indication); or iterative reconstruction. COMPARISON: CT ABDOMEN PELVIS WO 04/02/2023 3:55 PM FINDINGS: Lungs: Mild dependent changes at the lung bases. Liver: Normal. No mass. Gallbladder and bile ducts: Normal. No calcified stones. No ductal dilation. Pancreas: Normal. No ductal dilation. Spleen: Normal. No splenomegaly. Adrenal glands: Stable thickening of the adrenal glands likely related to benign adenomatous change. Kidneys and ureters: A 2 mm stone in the right distal ureter immediately proximal to the right ureterovesical junction, resulting in mild right hydroureteronephrosis. There is right-sided perinephric fat stranding. Midpole 6 mm nonobstructive left kidney stone. Otherwise unremarkable kidneys. Stomach and bowel: Scattered sigmoid diverticula, without evidence of diverticulitis. No other gross bowel abnormalities. No bowel obstruction. Appendix: The appendix is unable to be delineated, however no inflammatory changes are seen in the expected region of the appendix. Intraperitoneal space: Unremarkable. No free air. No significant fluid collection. Vasculature: Unremarkable. No abdominal aortic aneurysm. Lymph nodes: Unremarkable. No enlarged lymph nodes. Urinary bladder: Urinary bladder collapsed, limiting evaluation. Reproductive: Unremarkable as visualized. Bones/joints: Grade I degenerative anterior spondylolisthesis of L4 on L5. No acute or suspicious osseous abnormalities. Soft tissues: Mild diastasis of the rectus abdominus muscles. IMPRESSION: 1. A 2 mm stone in the right distal ureter immediately proximal to the right ureterovesical junction, resulting in mild right hydroureteronephrosis. 2. Left kidney stone. Dictated and Authenticated by: Lu Jacobson MD. Ordering:GERALD Richards MD
[2023-09-18] MEDS: HYDROmorphone 2 MG/ML SYR 1 MG IVP (08:00)
== END 2023-09-18 10:41 | disposition home or self-care (01) ==
PROVIDERS: Student in an Organized Health Care Education/Training Program; Emergency Provider Emergency Medicine; PCP Nurse Practitioner Family
DX: R10.9 Unspecified abdominal pain (principal); N13.2 Hydronephrosis with renal and ureteral calculous obstruction; Z88.5 Allergy status to narcotic agent
CPT/HCPCS: 80053; 96361; 96374; 96375; 96376; 99285; 74176; 81003; 81015; 85025; 99284; J0131; J1170; J1885; J2405

== ENCOUNTER 2023-09-18 16:22 | Emergency (ER) | payer BC, SELFPAY ==
[2023-09-18 16:26] VITALS: BP 127/81; PULSE 70; RESP 18; TEMP 36.4; O2SAT 98
[2023-09-18 16:30] VITALS: BP 127/81; PULSE 70; RESP 18; TEMP 36.6; O2SAT 98
[2023-09-18] MEDS: HYDROmorphone 2 MG/ML SYR 1 MG IM ×2 (16:41→17:39)
[2023-09-18] MEDS: oxyCODONE 10 MG TAB PO (16:41)
[2023-09-18] MEDS: Ondansetron O.D.T. 4 MG TABEF PO (16:41)
[2023-09-18 17:29] LABS: Bilirubin Negative (Negative); Blood Moderate (Negative); Clarity Clear (Clear); Glucose Negative (Negative); Ketones Trace mg/dL (Negative); Leukocyte Esterase Negative (Negative); Nitrite Negative (Negative); Specific Gravity >= 1.030 (1.005-1.025); Urobilinogen 0.2 mg/dL (Up to 0.2)
--- NOTE | 2023-09-18 17:29 | W.ED.GENAD ---
Discharge Plan Disposition Patient Disposition: Home Discharge Details Clinical Impression: Kidney stone on right side Primary Care Provider: Carlos Arboleda ED Provider: Angelika Rivera Home Meds and New Rx's Prescriptions: New morphine 15 mg tablet 15 mg PO Q8H PRNQty: 10 0RF ondansetron 4 mg tablet,disintegrating 4 mg PO BID-TID PRN4 Days Qty: 7 0RF Continued bupropion HCl 300 mg tablet extended release 24 hr 300 mg PO QAM ascorbic acid (vitamin C) 500 mg tablet 1,000 mg PO DAILY Patient Comments: 04/03/23: Pt reports he is not taking. -BR ketorolac 10 mg tablet 10 mg PO TID 5 Days Qty: 15 0RF tamsulosin [Flomax] 0.4 mg capsule 0.4 mg PO DAILY Qty: 10 0RF Discharge Instructions Instructions: Kidney Stones (ED) Additional Instructions: Had a least eight 8 ounce glasses of water daily, this will help you pass the stone Take the Flomax as prescribed Take the Toradol as prescribed I have written you for morphine, this is very addictive and you should not operate your vehicle for 8 hours after taking this medication Return with fever, chills, or with any new or worsening complaints Follow-up with urology Stand Alone Forms: Work Release Referrals: Carlos Arboleda, KARIS [Primary Care Provider] - Derek Koo MD [ [id number] STAFF PHYSICIAN] - 3 days Discharge Data Discharge Date/Time-TO BE ENTERED AT DEPARTURE: 09/18/23 17:47 Medical Decision Making 53-year-old male presenting for repeat assessment, head CT diagnostic lab work and urinalysis earlier, urinalysis does not show evidence of infection, CT with stone at UVJ on the right, 2 mm Moderate right hydronephrosis Patient is afebrile and nontoxic on reassessment, he is really in no acute distress and ambulates comfortably into the emergency department He did receive a bladder scan with 32 cc of urine and we will perform a repeat urinalysis Vitals are stable Patient is in no acute distress Received 1 mg of Dilaudid and Zofran Also administered 10 mg of oxycodone Plan is to DC patient on small amount of opiate analgesia, morphine 15 IR was sent to patient's pharmacy and Zofran Urology referral in place Discharged home in stable condition with stable vitals, urine does not show evidence of secondary infection HPI General Date/Time Provider Initiated Documentation: 09/18/23 16:28. HPI Narrative: This 53-year-old gentleman with a history of ureterolithiasis, seen earlier today diagnosed with a right lower UVJ stone presents for recurrent pain. Denies fever or chills. Has had some intermittent nausea without vomiting. Has taken his Flomax and Toradol as prescribed. Denies any changes in urination. Presents secondary to persistent discomfort. History of ureterolithiasis in the past. Able to urinate per patient. Related Data Home Medications Medication Instructions Recorded Confirmed bupropion HCl 300 mg 24 hr tablet, 300 mg PO QAM 10/10/18 09/18/23 extended release ascorbic acid (vitamin C) 500 mg 1,000 mg PO DAILY 03/24/22 09/18/23 tablet ketorolac 10 mg tablet 10 mg PO TID 5 days #15 tabs 09/18/23 morphine 15 mg immediate release 15 mg PO Q8H PRN #10 tabs 09/18/23 tablet ondansetron 4 mg disintegrating 4 mg PO BID-TID PRN 4 days #7 tabs 09/18/23 tablet tamsulosin 0.4 mg capsule (Flomax) 0.4 mg PO DAILY #10 caps 09/18/23 Previous Rx's Medication Instructions Recorded ketorolac 10 mg tablet 10 mg PO TID 5 days #15 tabs 09/18/23 morphine 15 mg immediate release 15 mg PO Q8H PRN #10 tabs 09/18/23 tablet ondansetron 4 mg disintegrating 4 mg PO BID-TID PRN 4 days #7 tabs 09/18/23 tablet tamsulosin 0.4 mg capsule (Flomax) 0.4 mg PO DAILY #10 caps 09/18/23 Allergies Allergy/AdvReac Type Severity Reaction Status Date / Time codeine AdvReac Intermediate Nausea Verified 09/18/23 06:41 meperidine HCl [From Demerol] AdvReac Intermediate Depression Verified 09/18/23 06:41 General Stated Complaint: Urinary CAMRON: 4 PFSH All Active Problems (Updated 09/18/23 @ 17:25 by JACKELINE Reyna) Kidney stone on right side (Acute) Dermatitis (Acute 01/17/18) Depression (Chronic) Right ankle pain (Acute) Left elbow pain (Acute) Pain in right hand (Acute) Pain in right wrist (Acute) Carpal tunnel syndrome of right wrist (Acute) Trigger finger of right hand (Acute) Acute medial meniscus tear of right knee (Acute ~05/2021) Normal colonoscopy (Acute ~04/07/22) Migraines (Chronic) Managed by [place] Medical History Left ureteral stone History of broken leg PTSD (post-traumatic stress disorder) Per pt. announce self if patient is asleep before touching Surgical History History of colonoscopy (~04/07/22) History of open reduction and internal fixation (ORIF) procedure right middle finger 04/03/23: Right index finger, per pt. -BR History of incision and drainage right hand Hemorrhoidectomy (07/23/18) thrombosed,gangrenous Family History Mother , AGE 86 No problems noted. Father Cancer of neck Brother No problems noted. Sister No problems noted. 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 Pets and animals: No Sexually active: Yes Do you think of yourself as: straight/heterosexual Current gender identity: male What is your relationship status?: never How often do you talk on the phone with friends or family?: once per week How often do you get together with friends or relatives?: once per week How often do you attend jewish or rastafarian services?: 1-3 times per year Do you belong to any clubs or organized social groups?: no Panel score (0-1 are the most socially isolated patients): 0 NHANES result reviewed/action taken: Yes What type of physical activity do you participate in: walking and other Details: manual labor, 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 Duration: > 90 minutes/day Frequency: daily Ciarra/Moravian: Anabaptism Special ciarra needs: No Seatbelt use: always Helmet use: Yes Helmet use: always 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 Do you feel safe at home: Yes (Pt lives alone) Do you feel safe in your relationship?: Yes Course Vital Signs Vital signs: Vital Signs Temperature 36.4 C 09/18/23 16:26 Pulse 70 09/18/23 16:26 Respiratory Rate 18 09/18/23 16:26 Blood Pressure 127/81 09/18/23 16:26 Pulse Oximetry 98 09/18/23 16:26 Temperature 36.6 C 09/18/23 16:30 Temperature Source Temporal Artery Scan 09/18/23 16:30 Pulse 70 09/18/23 16:30 Respiratory Rate 18 09/18/23 16:30 Respiratory Effort Normal 09/18/23 16:29 Blood Pressure 127/81 09/18/23 16:30 Blood Pressure Position Sitting 09/18/23 16:30 Pulse Oximetry 98 09/18/23 16:30 Oxygen Delivery Method Room Air 09/18/23 16:30 Oxygen Flow Rate 0 09/18/23 16:30 Pain Level 9 09/18/23 16:30
[2023-09-18 17:41] LABS: Bacteria Rare HPF (Negative); C & S Indicated? Yes; Crystals Negative HPF (Negative); Epithelial Cells Rare HPF (Negative); Mucus Moderate (Negative)
== END 2023-09-18 17:47 | disposition home or self-care (01) ==
PROVIDERS: Emergency Provider Physician Assistant; PCP Nurse Practitioner Family
DX: N13.2 Hydronephrosis with renal and ureteral calculous obstruction (principal); Z87.891 Personal history of nicotine dependence
CPT/HCPCS: 99282; 81003; 81015; 87086; J1170

== ENCOUNTER 2023-09-21 13:52 | Emergency (ER) | payer BC, SELFPAY ==
[2023-09-21 14:07] VITALS: BP 136/88; PULSE 85; RESP 18; TEMP 37.3; O2SAT 95
--- NOTE | 2023-09-21 14:10 | ED.GENADUL_ITS ---
Discharge Plan Disposition Patient Disposition: Home Discharge Details Clinical Impression: Ureterolithiasis, CLAUDIA (acute kidney injury) Primary Care Provider: Carlos Arboleda ED Provider: Edin Gonzalez Home Meds and New Rx's Prescriptions: New tamsulosin 0.4 mg capsule 0.4 mg PO DAILY Qty: 7 0RF morphine 15 mg tablet 15 mg PO Q12H PRNQty: 7 0RF ondansetron 4 mg tablet,disintegrating 4 mg PO BID 5 Days Qty: 10 0RF Continued bupropion HCl 300 mg tablet extended release 24 hr 300 mg PO QAM ascorbic acid (vitamin C) 500 mg tablet 1,000 mg PO DAILY Patient Comments: 04/03/23: Pt reports he is not taking. -BR morphine 15 mg tablet 15 mg PO Q8H PRNQty: 10 0RF ondansetron 4 mg tablet,disintegrating 4 mg PO BID-TID PRN4 Days Qty: 7 0RF ketorolac 10 mg tablet 10 mg PO TID 5 Days Qty: 15 0RF tamsulosin [Flomax] 0.4 mg capsule 0.4 mg PO DAILY Qty: 10 0RF Discharge Instructions Additional Instructions: You were seen in the emergency department for your flank pain. Your ultrasound showed a persistent kidney stone. Please ensure you drink plenty of water. Please do not eat or drink anything by mouth after midnight on Sunday. In the morning on Sunday please call the urology team and update them by phone. If you are still having persistent pain they will likely take you to the surgery. If you are not able to manage her pain over the weekend please return to the emergency department. Please take your tamsulosin (Flomax) every day. Please take ondansetron as needed for nausea. For your pain please take medications as follows: 1. Take acetaminophen (Tylenol), 1,000 mg (two 500 mg tabs) every 6 hours You are also receiving a prescription for stronger oral opiate which you should take only as needed. Please do not drive or operate any heavy machinery or drink alcohol after taking your opiates. Referrals: Derek Koo MD [ [facility] STAFF PHYSICIAN] - 3 days HPI General Date/Time Provider Initiated Documentation: 09/21/23 14:09 . HPI Narrative: MDM This is an overall very well-appearing normothermic and not tachycardic 53-year-old male with recently diagnosed right 2 mm UVJ stone now with persistent pain and persistent mild hydronephrosis with right UVJ stone seen on ultrasound for which patient will follow-up with urology after checking basic renal function and urinalysis. No pain out of proportion to suggest foreign years gangrene. No right lower quadrant tenderness to suggest appendicitis. No left lower quadrant tenderness nor diarrhea to suggest diverticulitis. No dysuria no frequency doubt UTI. No chest pain to suggest ACS. I spoke with Dr. Koo from urology who advised that the patient continue his tamsulosin and schedule acetaminophen with morphine as needed for breakthrough and ondansetron as needed for nausea. Dr. Koo advised that the patient remain n.p.o. beginning at midnight on Sunday as Dr. Koo is reportedly in the operating room on Sunday. He advised that the patient touch base with the urology team by calling the clinic on Sunday with an update. 3:27 PM Urinalysis showing hematuria but no leukocytosis nor nitrites. Microscopy with no bacteriuria. Basic metabolic panel showing CLAUDIA compared to 4 days ago. No acute electrolyte abnormalities. CBC showing no anemia no thrombocytopenia no leukocytosis. Given CLAUDIA will provide 1 L of fluids and repeat renal function. I updated patient on plan for being n.p.o. at midnight. We will ensure that he has ample supply of tamsulosin ondansetron and oral morphine. We will proceed with empiric trial of expectant outpatient management assuming his CLAUDIA improved slightly with IV fluids. We will sign patient out to Holly Lovett. Chronic conditions affecting the care of the patient: Prior ureterallithiasis History obtained from an outside historian: N/A External record review: [facility] EMR Medications: Ketorolac & ondansetron Social determinants of health affecting disposition: N/A Management discussed with: Dr. Koo urology Treatment/interventions considered: Hospitalization but deferred Response to therapies provided: N/A HPI This is a 53-year-old male with recent diagnosis 3 days ago of right sided 2 mm UVJ stone now in the emergency department with persistent pain. Patient reports that he has been adherent with a strainer and caught grains of sand sized pieces but not a stone. He has had subjective fevers. He is intermittently been nauseous but not vomiting. He has been adherent with his tamsulosin but did not take his oral narcotics today as he returned to work. He said no dysuria or frequency. He said no diarrhea. He did have some testicular pain. No chest pain or shortness of breath. No recent falls. Exam General: Well-appearing in no acute distress speaking in complete sentences. Head: Normocephalic, atraumatic. Eye: Extraocular eye movements intact. No conjunctival injection. No scleral icterus. Ear, nose, mouth, throat: Grossly normal inspection. Normal voice, handling secretions normally. Neck: Trachea midline. Cardiovascular: Well-perfused distal extremities. Respiratory: Nonlabored respiration. Gastrointestinal: Nondistended abdomen. Soft nontender. : No crepitance. No pain out of proportion. Nontender testicles. No blood at the meatus. Musculoskeletal: No edema. Moving all 4 extremities spontaneously. Skin: Normal for age and race, grossly normal temperature and turgor. No acute rash. Neurologic: Alert and appropriate, no apparent acute deficits. Psychiatric: Mood and manner are appropriate. Grooming and personal hygiene are appropriate. Related Data Home Medications Medication Instructions Recorded Confirmed bupropion HCl 300 mg 24 hr tablet, 300 mg PO QAM 10/10/18 09/18/23 extended release ascorbic acid (vitamin C) 500 mg 1,000 mg PO DAILY 03/24/22 09/18/23 tablet ketorolac 10 mg tablet 10 mg PO TID 5 days #15 tabs 09/18/23 morphine 15 mg immediate release 15 mg PO Q8H PRN #10 tabs 09/18/23 tablet ondansetron 4 mg disintegrating 4 mg PO BID-TID PRN 4 days #7 tabs 09/18/23 tablet tamsulosin 0.4 mg capsule (Flomax) 0.4 mg PO DAILY #10 caps 09/18/23 morphine 15 mg immediate release 15 mg PO Q12H PRN #7 tabs 09/21/23 tablet ondansetron 4 mg disintegrating 4 mg PO BID 5 days #10 tabs 09/21/23 tablet tamsulosin 0.4 mg capsule 0.4 mg PO DAILY #7 caps 09/21/23 Previous Rx's Medication Instructions Recorded ketorolac 10 mg tablet 10 mg PO TID 5 days #15 tabs 09/18/23 morphine 15 mg immediate release 15 mg PO Q8H PRN #10 tabs 09/18/23 tablet ondansetron 4 mg disintegrating 4 mg PO BID-TID PRN 4 days #7 tabs 09/18/23 tablet tamsulosin 0.4 mg capsule (Flomax) 0.4 mg PO DAILY #10 caps 09/18/23 morphine 15 mg immediate release 15 mg PO Q12H PRN #7 tabs 09/21/23 tablet ondansetron 4 mg disintegrating 4 mg PO BID 5 days #10 tabs 09/21/23 tablet tamsulosin 0.4 mg capsule 0.4 mg PO DAILY #7 caps 09/21/23 Allergies Allergy/AdvReac Type Severity Reaction Status Date / Time codeine AdvReac Intermediate Nausea Verified 09/18/23 06:41 meperidine HCl [From Demerol] AdvReac Intermediate Depression Verified 09/18/23 06:41 General CAMRON: 4 PFSH All Active Problems (Updated 09/21/23 @ 15:37 by Edin Gonzalez MD) CLAUDIA (acute kidney injury) (Acute) Ureterolithiasis (Acute) Kidney stone on right side (Acute) Dermatitis (Acute 01/17/18) Depression (Chronic) Right ankle pain (Acute) Left elbow pain (Acute) Pain in right hand (Acute) Pain in right wrist (Acute) Carpal tunnel syndrome of right wrist (Acute) Trigger finger of right hand (Acute) Acute medial meniscus tear of right knee (Acute ~05/2021) Normal colonoscopy (Acute ~04/07/22) Migraines (Chronic) Managed by [place] Medical History Left ureteral stone History of broken leg PTSD (post-traumatic stress disorder) Per pt. announce self if patient is asleep before touching Surgical History History of colonoscopy (~04/07/22) History of open reduction and internal fixation (ORIF) procedure right middle finger 04/03/23: Right index finger, per pt. -BR History of incision and drainage right hand Hemorrhoidectomy (07/23/18) thrombosed,gangrenous Family History Mother , AGE 86 No problems noted. Father Cancer of neck Brother No problems noted. Sister No problems noted. 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 Pets and animals: No Sexually active: Yes Do you think of yourself as: straight/heterosexual Current gender identity: male What is your relationship status?: never How often do you talk on the phone with friends or family?: once per week How often do you get together with friends or relatives?: once per week How often do you attend latter day or tenriism services?: 1-3 times per year Do you belong to any clubs or organized social groups?: no Panel score (0-1 are the most socially isolated patients): 0 NHANES result reviewed/action taken: Yes What type of physical activity do you participate in: walking and other Details: manual labor, 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 Duration: > 90 minutes/day Frequency: daily Ciarra/Nondenominational: Episcopal Special ciarra needs: No Seatbelt use: always Helmet use: Yes Helmet use: always 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 Do you feel safe at home: Yes (Pt lives alone) Do you feel safe in your relationship?: Yes POCUS Exam (ED) Limited Retroperitoneal(Renal)Exam DATE OF EXAM: 09/21/23 TIME OF EXAM: 14:38 PROVIDER THAT PERFORMED THE STUDY: Edin Gonzalez IS THIS A REPEAT EXAM DURING THIS ENCOUNTER: No REASON FOR EXAM: Flank pain/right side VISUALIZED STRUCTURES: Right kidney and Other structures: Bladder PERTINENT FINDINGS/IMPRESSION: Hydronephrosis present right side and Other impression: Right-sided twinkle sign consistent with UVJ stone INCIDENTAL FINDINGS: Mild right-sided hydronephrosis with twinkle sign consistent with right-sided UVJ stone Exam complete
[2023-09-21 15:17] LABS: Bilirubin Negative (Negative); Blood Moderate (Negative); Clarity Clear (Clear); Glucose Negative (Negative); Ketones Negative (Negative); Leukocyte Esterase Negative (Negative); Nitrite Negative (Negative); Urobilinogen 0.2 mg/dL (Up to 0.2); pH 5.5 (5-8)
[2023-09-21 15:21] LABS: Abs Immature Grans 0.02 10^3/uL (0.0-0.06); Absolute Basophil Count 0.03 10^3/uL (0.0-0.2); Absolute Eosinophil Count 0.13 10^3/uL (0.0-0.7); Absolute Lymphocyte Count 0.82 10^3/uL (1.2-3.4); Absolute Monocyte Count 0.74 10^3/uL (0.1-0.8); Absolute Neutrophil Count 4.69 10^3/uL (1.2-6.7); Basophils % 0.5; HGB 13.5 g/dL (13.5-17.5); Immature Grans % 0.3; Lymphocytes % 12.8; MCH 30.5 pg (27.0-33.0); MCHC 33.8 % (32.0-36.0); MCV 91 fL (80-95); MPV 9.4 fL (8.0-11.0); Monocytes % 11.5; Neutrophils % 72.9; Platelet Count 223 10^3/uL (130-400); RBC 4.42 10^6/uL (4.36-5.78); RDW 11.7 % (11.8-14.1); RDW-SD 39.2 fL; WBC 6.43 10^3/uL (4.4-10.8)
[2023-09-21 15:24] LABS: Anion Gap 4.6 mmol/L (3-11); BUN 22 mg/dL (7-18); Bacteria Negative HPF (Negative); C & S Indicated? No; CO2 31.4 mmol/L (21.0-32.0); CREATININE 1.8 mg/dL (0.70-1.30); Calcium 9.3 mg/dL (8.5-10.1); Chloride 103 mmol/L (98-107); Crystals Negative HPF (Negative); Epithelial Cells Negative HPF (Negative); Glucose 96 mg/dL (74-106); Mucus Negative (Negative); Potassium 4.1 mmol/L (3.5-5.1); Sodium 139 mmol/L (136-145); WBC Negative HPF (0-5)
[2023-09-21] MEDS: Acetaminophen 500 MG TAB 1000 MG PO (15:29)
[2023-09-21] MEDS: Ketorolac 15 MG/ML VIAL IVP (15:29)
[2023-09-21] MEDS: Ondansetron O.D.T. 4 MG TABEF PO (15:30)
[2023-09-21] MEDS: Normal Saline 500 ML IV (15:30)
--- NOTE | 2023-09-21 17:46 | ED.PROG_ITS ---
Date of service: 09/21/23 Time of Service: 17:46 Medical Decision Making Care transition myself from Dr. Gonzalez. Please see his initial note regarding history, presentation and exam. In brief, patient here for continued pain of a 2 mm kidney stone as previously diagnosed to be at the UVJ. Dr. Gonzalez had not ed a CLAUDIA compared to when patient was here recently. Creatinine sandie to 1.8 from 1.23 days ago. Of note, patient did have elevated creatinine in the past but this is significantly changed. Dr. Gonzalez wanted this rechecked after the patient received IV fluids. He has also spoken with Dr. Koo already and plan for possible surgical intervention if the patient is unable to pass the stone at home this coming Sunday. This is already been voiced to the patient. Patient was having difficulty with pain management and has received IV pain medication. Patient requesting discharge. Reports that he has some place to be. Labs are not completed for his repeat look at his creatinine. Patient is aware of this and is still requesting to be discharged home. Of note, he does report that he passed his stone while here and does have it with him which was sent to the lab as well. I will call him with any concerning findings on the BMP. Return precautions were discussed. Encouraged that he continue to follow-up with Dr. Koo as previously advised. Return precautions were discussed. He is aware that he may return at any time for continued care. We will send the stone he is passed to the lab. Of note, patient also reports that his pain is significantly improved after passage of the stone. Discharge note had already been completed by Dr. Gonzalez. All of the patient's questions and concerns were addressed and he is in agreement with this plan. Patient's BMP was cancelled d/t it being hydrolyzed. Called patient and let him know. He is not sure when he can come back but will come back to have this rechecked. Also discussed that, if it will be awhile, he can have this ordered through PCP. Sign Out Sign Out Data: Sign Out Comment: Please follow-up repeat basic metabolic panel ordered at 5 PM status post total of 1 L IV fluids. Please also follow-up to ensure adequate oral analgesia. Patient unfortunately has an allergy to NSAIDs and drove himself to the emergency department. Refills have been sent to his pharmacy for his ondansetron, tamsulosin, and oral morphine. Last updated by Edin Gonzalez MD at 09/21/23 15:49 Discharge Plan Disposition Patient Disposition: Home Condition: Improving Discharge Details Clinical Impression: Ureterolithiasis, CLAUDIA (acute kidney injury) Primary Care Provider: Carlos Arboleda ED Provider: Holly Lovett Home Meds and New Rx's Prescriptions: New tamsulosin 0.4 mg capsule 0.4 mg PO DAILY Qty: 7 0RF morphine 15 mg tablet 15 mg PO Q12H PRNQty: 7 0RF ondansetron 4 mg tablet,disintegrating 4 mg PO BID 5 Days Qty: 10 0RF Continued bupropion HCl 300 mg tablet extended release 24 hr 300 mg PO QAM ascorbic acid (vitamin C) 500 mg tablet 1,000 mg PO DAILY Patient Comments: 04/03/23: Pt reports he is not taking. -BR morphine 15 mg tablet 15 mg PO Q8H PRNQty: 10 0RF ondansetron 4 mg tablet,disintegrating 4 mg PO BID-TID PRN4 Days Qty: 7 0RF ketorolac 10 mg tablet 10 mg PO TID 5 Days Qty: 15 0RF tamsulosin [Flomax] 0.4 mg capsule 0.4 mg PO DAILY Qty: 10 0RF Discharge Instructions Additional Instructions: You were seen in the emergency department for your flank pain. Your ultrasound showed a persistent kidney stone. Please ensure you drink plenty of water. Please do not eat or drink anything by mouth after midnight on Sunday. In the morning on Sunday please call the urology team and update them by phone. If you are still having persistent pain they will likely take you to the surgery. If you are not able to manage her pain over the weekend please return to the emergency department. Please take your tamsulosin (Flomax) every day. Please take ondansetron as needed for nausea. For your pain please take medications as follows: 1. Take acetaminophen (Tylenol), 1,000 mg (two 500 mg tabs) every 6 hours You are also receiving a prescription for stronger oral opiate which you should take only as needed. Please do not drive or operate any heavy machinery or drink alcohol after taking your opiates. Referrals: Derek Koo MD [ [facility] STAFF PHYSICIAN] - 3 days
== END 2023-09-21 18:01 | disposition home or self-care (01) ==
PROVIDERS: Emergency Medicine; Emergency Provider Physician Assistant; PCP Nurse Practitioner Family
DX: R10.9 Unspecified abdominal pain (principal); N13.2 Hydronephrosis with renal and ureteral calculous obstruction; N17.9 Acute kidney failure, unspecified
CPT/HCPCS: 00123; 76775; 80048; 96360; 99284; 81003; 81015; 82365; 85025; 87086; 99285; J1885

== ENCOUNTER 2025-07-12 18:52 | Emergency (ER) | payer OTHER, SELFPAY ==
[2025-07-12 18:58] VITALS: BP 149/79; PULSE 69; RESP 16; TEMP 37.3; O2SAT 98
--- NOTE | 2025-07-12 19:00 | DI.RAD_ITS ---
Exam(s) XR FOOT RT COMPLETE EXAM: XR FOOT RT COMPLETE CLINICAL HISTORY: tree to great toe/dorsal pain. TECHNIQUE: 2D digital imaging was performed. COMPARISON: No exams were available for comparison FINDINGS: 3 views There is comminuted fracture of the tuft of the distal phalanx of the great toe. There is also a intra-articular fracture on the lateral base of the distal phalanx of the great toe. The great toe metatarsophalangeal joint appears unremarkable as do the other MTP joints and there is no diastasis of the Lisfranc joint. There is significant degenerative changes in the posterior aspect of the talocalcaneal joint. Also prominent dorsal osteophytes noted in the talonavicular joint. IMPRESSION: Comminuted fracture the distal of the tuft of the distal phalanx of the great toe as well as intra-articular fracture of the base of the distal phalanx of the great toe on its lateral aspect. DATA REPOSITORY: RADIATION DOSE DELIVERED:
[2025-07-12] MEDS: Bupivacaine 0.5% Pres-Free 30 ML VIAL IJ (19:18)
[2025-07-12] MEDS: Diph,Pertuss(Acell),Tet Vac/Pf 0.5 ML SYR IM (19:19)
[2025-07-12] MEDS: ceFAZolin 1,000 MG VIAL 1000 MG IM (20:37)
[2025-07-12] MEDS: Water,Injection,Sterile 10 ML VIAL (20:37)
[2025-07-12] MEDS: Cephalexin 500 MG CAP, 4 CAPS/BTL PO (20:37)
--- NOTE | 2025-07-12 21:30 | DI.VRAD_ITS ---
PROCEDURE INFORMATION: Exam: XR Right Foot Exam date and time: 07/12/2025 7:54 PM Age: 55 years old Clinical indication: Other: Tree to great toe/dorsal pain TECHNIQUE: Imaging protocol: Radiologic exam of the right foot. Views: 3 or more views. COMPARISON: MR LOWER JOINT RT WO 09/20/2021 3:20 PM FINDINGS: Bones/joints: There is a comminuted fracture of the distal tuft of the right 1st distal phalanx. There is also an intra-articular fracture at the base of the right 1st distal phalanx. No other fracture or dislocation. No suspicious bony lesions. Severe degenerative changes are present at the talocalcaneal and the talonavicular joints. Soft tissues: Normal. IMPRESSION: Distal comminuted and proximal intra-articular fracture of the distal right 1st phalanx. Dictated and Authenticated by: Luna Matta MD. Orderin Nicole Carney MD
--- NOTE | 2025-07-12 23:22 | ED.GENADUL_ITS ---
Discharge Plan Disposition Patient Disposition: Home Discharge Details Clinical Impression: Open fracture of great toe of right foot Primary Care Provider: Carlos Arboleda ED Provider: Angelika Rivera Home Meds and New Rx's Prescriptions: New cephalexin 500 mg capsule 500 mg PO QID 7 Days Qty: 28 0RF oxycodone-acetaminophen [Endocet] 5-325 mg tablet 1 tab PO Q8H PRNQty: 6 0RF Continued bupropion HCl 300 mg tablet extended release 24 hr 300 mg PO QAM Discharge Instructions Instructions: Toe Fracture ED Additional Instructions: Take the antibiotic as prescribed I am giving you a prescription for oxycodone this medication is addictive and can make you constipated, you should not operate your vehicle for 8 hours after taking this medication Elevate your foot and you may apply ice as needed for pain You should stay off your foot as much as possible and use crutches Wash with soap and water twice a day This suture will need to be removed in 10 days, this is holding the nail in place Should you develop fever, chills, worsening pain or spreading redness you must return immediately for reassessment You will need to follow-up with the professional engineer and listing the information below for follow-up Stand Alone Forms: Work Release Referrals: Carlos Arboleda, KARIS [Primary Care Provider, Medicine] Kortney Escobar DPM [[facility] STAFF PHYSICIAN, Podiatry] [facility] General Date/Time Provider Initiated Documentation: 07/12/25 18:59 . HPI Narrative: 55-year-old male with trauma to right great toe. Injury occurred when a tree fell on him. No steel-toed boots worn. No other injuries reported. Uncertain tetanus status. Related Data Home Medications ?Medication ?Instructions ?Recorded ?Confirmed bupropion HCl 300 mg 24 hr tablet, 300 mg PO QAM 10/1007/12/25 extended release cephalexin 500 mg capsule 500 mg PO QID 7 days #28 cap s 07/12/25 oxycodone-acetaminophen 5 mg-325 1 tab PO Q8H PRN #6 t abs 07/12/25 mg tablet (Endocet) Previous Rx's ?Medication ?Instructions ?Recorded cephalexin 500 mg capsule 500 mg PO QID 7 days #28 cap s 07/12/25 oxycodone-acetaminophen 5 mg-325 1 tab PO Q8H PRN #6 t abs 07/12/25 mg tablet (Endocet) Allergies Allergy/AdvReac Type Severity Reaction Status Date / Time codeine AdvReac Intermediate Nausea Verified 07/12/25 19:01 meperidine HCl (From Demerol) AdvReac Intermediate Depression Verified 07/12/25 19:01 General Stated Complaint: Orthopedic CAMRON: 3 Exam Narrative Exam Narrative: General Appearance: Alert and oriented. Vital signs: Within normal limits. HEENT: Within normal limits. Respiratory: Within normal limits. Gastrointestinal: No chest or abdominal tenderness. Back, Musculoskeletal: No ankle or tib-fib tenderness. Extremities: Dislocated nail with bleeding, tenderness, and bruising on right great toe. Skin: No other visible trauma. Neurological: GCS 15. Course Vital Signs Vital signs: Vital Signs Temperature 37.3 C 07/12/25 18:58 Pulse 69 07/12/25 18:58 Respiratory Rate 16 07/12/25 18:58 Blood Pressure 149/79 H 07/12/25 18:58 Pulse Oximetry 98 07/12/25 18:58 Temperature 37.3 C 07/12/25 18:58 Pulse 69 07/12/25 18:58 Respiratory Rate 16 07/12/25 18:58 Blood Pressure 149/79 H 07/12/25 18:58 Pulse Oximetry 98 07/12/25 18:58 Pain Level 10 07/12/25 18:58 Medical Decision Making - X-ray: - Intra-articular and tuft fracture of right great toe 55-year-old male with right great toe trauma. Dislocated nail with bleeding, tenderness, and bruising. X-ray shows intra-articular and tuft fracture. Concern for open fracture. Differential Diagnosis: - Open fracture: Nail bed displacement. Nail tacked down. Referred to podiatry. - Nail bed laceration: Suspected due to nail bed displacement. No obvious laceration. Nail tacked down. ED Course: Tetanus updated 1 g Ancef administered X-ray obtained Procedure: block with 4 cm? of 0.25% Marcaine Nail reapproximated with one 3-0 Prolene suture Big bulky dressing with postop shoe Keflex prescribed Final Assessment: Right great toe trauma. X-ray shows intra-articular and tuft fracture. Nail bed displacement. Nail tacked down. No active bleeding. Procedure tolerated. Clinical Impression: - Right great toe trauma - Intra-articular and tuft fracture Disposition: Discharge: Home. Return precautions reviewed. Follow-Up: Reassessment by podiatry in 48 hours Suture removal in 10 days Patient Education: Elevate foot Return precautions reviewed Work note applied PFSH All Active Problems (Updated 07/12/25 @ 21:19 by JACKELINE Reyna) Open fracture of great toe of right foot (Acute) Dermatitis (Acute 01/17/18) Depression (Chronic) Carpal tunnel syndrome of right wrist (Acute) Trigger finger of right hand (Acute) Normal colonoscopy (Acute ~04/07/22) Migraines (Chronic) Managed by [facility] Medical History (Updated 07/12/25 @ 21:19 by JACKELINE Reyna) Kidney stones, calcium oxalate Left ureteral stone History of broken leg Acute medial meniscus tear of right knee (~05/2021) Pain in right wrist Pain in right hand Left elbow pain Right ankle pain PTSD (post-traumatic stress disorder) Per pt. announce self if patient is asleep before touching Surgical History History of colonoscopy (~04/07/22) History of open reduction and internal fixation (ORIF) procedure right middle finger 04/03/23: Right index finger, per pt. -BR History of incision and drainage right hand Hemorrhoidectomy (07/23/18) thrombosed,gangrenous Family History Mother , AGE 86 No problems noted. Father Cancer of neck Brother No problems noted. Sister No problems noted. Social History (Updated 11/12/24 @ 09:20 by Maru Land) Smoking/Tobacco Use Status: Former Tobacco Use tobacco type: cigarettes Quit Date: 11/26/12 Tobacco: How many years used: 11 Second Hand Exposure: Yes Smoking risk assessment performed?: Yes Alcohol Intake: current Alcohol Intake frequency: holidays/special occasions only Alcohol type: beer Drug use: Never Substance use type: does not use Adopted: No Caregiver/Support person: No Household members: none Housing: house Number of Children: 0 number of grandchildren: 0 Communication Needs: None Education Level: high school Details: 12th grade Do you need help understanding health information?: Rarely 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- [employer] Pets and animals: No Sexually active: Yes Do you think of yourself as: straight/heterosexual Current gender identity: male What is your relationship status?: never How often do you talk on the phone with friends or family?: once per week How often do you get together with friends or relatives?: once per week How often do you attend adventism or moravian services?: 1-3 times per year Do you belong to any clubs or organized social groups?: no Panel score (0-1 are the most socially isolated patients): 0 NHANES result reviewed/action taken: Yes What type of physical activity do you participate in: other 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
== END 2025-07-12 21:59 | disposition home or self-care (01) ==
PROVIDERS: Emergency Provider Physician Assistant; PCP Nurse Practitioner Family
DX: S92.401B Displaced unspecified fracture of right great toe, initial encounter for open fracture (principal); W20.8XXA Other cause of strike by thrown, projected or falling object, initial encounter; Z23 Encounter for immunization
CPT/HCPCS: 99283; 99284; 11760; 96372; 90471; 90715; 73630; J0665; J0690

== ENCOUNTER 2025-08-03 20:23 | Emergency (ER) | payer BC, SELFPAY ==
[2025-08-03 20:26] VITALS: BP 129/83; PULSE 74; RESP 18; TEMP 36.7; O2SAT 98
--- NOTE | 2025-08-03 20:30 | DI.CT_ITS ---
Exam(s) CT RENAL COLIC WO EXAM: CT RENAL COLIC WO CLINICAL HISTORY: R flank pain; hx stones w stent. TECHNIQUE: Imaging Protocol: Axial computed tomography images with coronal and sagittal reformatted images were created and reviewed CONTRAST MATERIAL: Intravenous: none Oral: None COMPARISON: CT CT ABDOMEN PELVIS WO from 04/30/[address] ABDOMEN PELVIS WO from 09/18/2023 FINDINGS: VISUALIZED LUNG BASES: No nodules nor pleural effusions evident. ABDOMEN: There is no ascites. LIVER: There are no obvious focal hepatic lesions evident of this noninfused study. GALLBLADDER/BILIARY: No acute gallbladder pathology. Gallbladder is not distended. No obvious calculi. CBD is not dilated. PANCREAS: No evidence of pancreatic mass nor dilatation of the pancreatic duct. SPLEEN: Spleen is not enlarged. No obvious intrasplenic lesions. ADRENALS: There is unchanged thickening of both adrenal glands again noted, unchanged from August 2023 and April 2022, consistent with relatively bilateral symmetrical adrenal hyperplasia. KIDNEYS:Nonobstructive calculi in the left kidney are again noted, unchanged. No other focal left kidney findings. There is mild right-sided hydronephrosis and hydroureter which is due to a distal right ureteral calculus at the UV junction measuring 2 mm. Quite similar to CT scan findings of August 2023. There are no additional radiopaque calculi seen in the right kidney. There are no calculi seen in the lumen of the collapsed urinary bladder. ABDOMINAL AORTA: Abdominal aorta is not enlarged. LYMPH NODES: There is no retroperitoneal nor paraaortic adenopathy. ABDOMINAL WALL: No evidence of significant anterior abdominal wall nor inguinal hernia. GI: There is no evidence of bowel obstruction, free air, nor abscess. PELVIS: LYMPH NODES: There is no intrapelvic nor inguinal adenopathy. GI: No evidence of appendicitis.No evidence of sigmoid diverticulitis. URINARY BLADDER: As above REPRODUCTIVE: Prostate size upper normal. OSSEOUS: No significant osseous lesions. Mild degenerative anterolisthesis L4 upon L5 related to facet arthropathy. There is no disc space narrowing at this level. IMPRESSION: 1. There is a small 2 mm calculus in the distal right ureter just above the right ureterovesical junction with mild hydronephrosis and hydroureter above this level. No additional radiopaque calculi seen in the right kidney. There are nonobstructive calculi again noted in the left kidney. The above right- sided findings are quite similar to what occurred on CT scan of September 18, 2023 2. Bilateral symmetrical adrenal hyperplasia again noted. This is unchanged from CT scans listed above. Report called by myself to ER provider 08/03/2025 at 9:53 p.m. RADIATION DOSE DELIVERED: 387.4mGy.cm Total DLP DATA REPOSITORY: All CT scans at this facility are submitted to the National Radiology Data Registry (NRDR) Dose Index Registry (DIR) with the [employer] (ACR). RADIATION OPTIMIZATION: All CT scans at this facility use at least one of these dose optimization techniques: automated exposure control; mA and/or kV adjustment per patient size (includes targeted exams where dose is matched to clinical indication); or iterative reconstruction.
--- NOTE | 2025-08-03 20:35 | ED.GENADUL_ITS ---
Discharge Plan Disposition Patient Disposition: Home Condition: Stable Discharge Details Clinical Impression: Calculus of distal right ureter Primary Care Provider: Carlos Arboleda ED Provider: Mauirce Quiroz Home Meds and New Rx's Prescriptions: New tamsulosin 0.4 mg capsule 0.4 mg PO DAILY Qty: 20 0RF Continued bupropion HCl 300 mg tablet extended release 24 hr 300 mg PO QAM oxycodone-acetaminophen [Endocet] 5-325 mg tablet 1 tab PO Q8H PRNQty: 6 0RF No Action mupirocin 2 % ointment 1 applic topical TID Qty: 15 0RF doxycycline hyclate 100 mg tablet 100 mg PO BID 7 Days Qty: 14 0RF Discharge Instructions Instructions: Ketorolac (Systemic), Tamsulosin, Kidney Stone Diet, Kidney Stone, Adult ED Additional Instructions: You were seen in the emergency department for your right distal ureteral stone, there is no evidence of infection in your urine, the stone is 3 mm which should pass without issue. You need to be drinking at least a half a gallon of fluids per day, take 1000 mg of Tylenol every 6 hours like clockwork, group home in between Tylenol doses take the prescribed ketorolac also every 6 hours for 5 days and then switch to 400 mg of ibuprofen in its place. Take the prescribed tamsulosin which is otherwise known as Flomax which helps dilate your urinary system to allow the stone to pass more easily. You can purchase [id number] AZO which will help numb the urethra for discomfort of urination, this medicine will turn your urine orange. Please contact the urology office for any specific follow-up, return to the emergency department for severe increase in pain especially fever, shortness of breath, nausea or weakness. Referrals: Carlos Arboleda NP [Primary Care Provider, Medicine] Derek Koo MD [ [facility] STAFF PHYSICIAN, Urology] Discharge Data Discharge Date/Time-TO BE ENTERED AT DEPARTURE: 08/03/25 22:45 HPI General Date/Time Provider Initiated Documentation: 08/03/25 20:34 . HPI Narrative: 55 year-old male presents to ED today by POV/ambulating with a chief complaint of R flank pain- with history of kidney stones, with onset today. Quality described as feels similar to prior kidney stones, severe pain- dysuria, pressure when urinating, no radiation to fever, endorses mild nausea with pain, denies hematuria, endorses having to strain to pee. Severity is described as moderate. Palliating factors include nothing specific. Provoking factors include nothing specific. Patient not anticoagulated. Related Data Home Medications ?Medication ?Instructions ?Recorded ?Confirmed bupropion HCl 300 mg 24 hr tablet, 300 mg PO QAM 10/1008/04/25 extended release oxycodone-acetaminophen 5 mg-325 1 tab PO Q8H PRN #6 t abs 07/12/25 08/04/25 mg tablet (Endocet) tamsulosin 0.4 mg capsule 0.4 mg PO DAILY #20 caps 07/2008/04/25 doxycycline hyclate 100 mg tablet 100 mg PO BID 7 days #14 tabs 08/04/25 08/04/25 mupirocin 2 % topical ointment 1 applic topical TID #1 5 grams 08/04/25 08/04/25 Previous Rx's ?Medication ?Instructions ?Recorded oxycodone-acetaminophen 5 mg-325 1 tab PO Q8H PRN #6 t abs 07/12/25 mg tablet (Endocet) tamsulosin 0.4 mg capsule 0.4 mg PO DAILY #20 caps 07/20 doxycycline hyclate 100 mg tablet 100 mg PO BID 7 days #14 tabs 08/04/25 mupirocin 2 % topical ointment 1 applic topical TID #1 5 grams 08/04/25 Allergies Allergy/AdvReac Type Severity Reaction Status Date / Time codeine AdvReac Intermediate Nausea Verified 08/04/25 13:59 meperidine HCl (From Demerol) AdvReac Intermediate Depression Verified 08/04/25 13:59 General Stated Complaint: FlankPain CAMRON: 3 Review of Systems All systems reviewed & are unremarkable except as noted in HPI and below Exam Narrative Exam Narrative: GENERAL APPEARANCE: Well-nourished, non-toxic, awake and alert, atraumatic, no acute distress. SKIN: Warm, pink, dry, intact, without rashes/lesions/ulcerations. HEAD: Normocephalic, atraumatic, normal hair distribution for gender/age. EYES: Normal conjunctiva, no exudates on lids/lashes. ENT: Nares patent, no circumoral cyanosis, no facial swelling NECK: Supple, trachea midline, painless cervical ROM. LUNGS/CHEST: Lungs CTA bilaterally-no rhonchi/rales/wheezes diffusely, non- labored respirations, normal A/P diameter, symmetrical expansion, no chest wall deformity HEART (CV/PV): Regular rate and rhythm without murmur, no peripheral edema, no JVD. ABDOMEN: Soft, non-distended, no guarding, right CVA tenderness to percussion, right lower quadrant tenderness without peritoneal signs MSK: Normal ROM, no swelling/deformity to bilateral UEs or LEs, moving all extremities without weakness, no cyanosis, spine midline without tenderness, normal curvature. NEURO: Mental Status AAOx4 - alert to person, place, time, events No facial droop, no forehead involvement. Motor: No focal weakness - strength 5/5 in bilateral UEs and LEs, proximal and distal, symmetric. Sensory: sensation intact to light touch globally. Gait normal: patient ambulated without ataxia into ED room. PSYCH: euthymic, cooperative, pleasant, appropriate speech Course Vital Signs Vital signs: Vital Signs Temperature 36.7 C 08/03/25 20:26 Pulse 74 08/03/25 20:26 Respiratory Rate 18 08/03/25 20:26 Blood Pressure 129/83 08/03/25 20:26 Pulse Oximetry 98 08/03/25 20:26 Temperature 36.7 C 08/03/25 20:26 Pulse 74 08/03/25 20:26 Respiratory Rate 18 08/03/25 20:26 Blood Pressure 129/83 08/03/25 20:26 Pulse Oximetry 98 08/03/25 20:26 Pain Level 9 08/03/25 20:26 Medical Decision Making This dictation utilizes [id number] dictation software and may contain une dited grammatical errors. 55 year-old male presents to ED today by POV/ambulating with a chief complaint of R flank pain- with history of kidney stones, with onset today. Quality described as feels similar to prior kidney stones, severe pain- dysuria, pressure when urinating, no radiation to fever, endorses mild nausea with pain, denies hematuria, endorses having to strain to pee. Severity is described as moderate. Palliating factors include nothing specific. Provoking factors include nothing specific. Patients' medical history: Calcium oxalate stones, otherwise noncontributory. Family and social history: Noncontributory. Pertinent exam findings / vital signs include right CVA tenderness, right lower quadrant abdominal tenderness without McBurney's point tenderness or peritoneal signs, nontoxic and afebrile. Differential / pathologies of concern include renal colic, UTI, pyelonephritis, abdominal wall muscle strain Diagnostic studies of: - CBC, CMP, lactate, lipase, UA, blood cultures, CT renal colic without. - CBC shows no leukocytosis - Lactate negative - CMP without actionable abnormality or CLAUDIA - Lipase negative - UA shows large blood, no signs of UTI - CT shows a right distal ureteral stone 2 mm that will likely pass, discussed with radiologist Dr. Garcia Interventions of: - 50 mg IVP ketorolac, 4 mg IVP Zofran, 0.4 mg p.o. tamsulosin, 1 g IV Tylenol, 1 L IVF NS, to go pack of ketorolac, 1 oxycodone to go to help him sleep tonight. ED Course/Assessment/Plan: 55-year-old male presents with right flank pain history of kidney stones, no signs of infected kidney stone, CT shows a 2 mm right distal ureteral stone, was started on ketorolac and Flomax recommend aggressive hydration and follow-up with urology, strict return criteria for any signs of infection like fever, weakness, nausea or vomiting. Findings not consistent with kidney stone too large to pass, infected kidney stone, UTI, sepsis. Disposition of calculus of distal right ureter. Patient verbalized understanding of the plan and return to ED criteria and engaged in shared decision making. Medical Records Medical records reviewed: Yes I reviewed the patient's medical records. Imaging Data Radiologic Study: Attestation: I personally reviewed and interpreted this imaging study as follows: Imaging: CT Scan Radiologist's impression: Exam: CT Abdomen And Pelvis Without Contrast Exam date and time: 08/03/2025 8:50 PM Age: 55 years old Clinical indication: R flank pain; HX stones w stent TECHNIQUE: Imaging protocol: Computed tomography of the abdomen and pelvis without contrast. Radiation optimization: All CT scans at this facility use at least one of these dose optimization techniques: automated exposure control; mA and/or kV adjustment per patient size (includes targeted exams where dose is matched to clinical indication); or iterative reconstruction. COMPARISON: CT ABDOMEN PELVIS WO 09/18/2023 6:57 AM FINDINGS: Lungs: Lung bases are clear. Liver: The liver has a normal appearance. Gallbladder and biliary ducts: The gallbladder is unremarkable. No biliary ductal dilatation. Pancreas: The pancreas demonstrates normal size. No pancreatic ductal dilatation. Spleen: The spleen demonstrates normal size. Adrenal glands: Normal. No mass. Kidneys and ureters: The right kidney is moderately enlarged. There is moderate right perinephric fat stranding. There is moderate right hydronephrosis and hydroureter. There is a 2 mm calculus within the distal right ureter (series 3/image 88). The left kidney is normal size. There is a nonobstructing left 5 mm midpole calculus. No left hydronephrosis, hydroureter, or ureterolithiasis. Stomach and bowel: The bowel demonstrates overall normal caliber and wall thickness. Appendix: The appendix is not visualized; however there are no ancillary findings to suggest acute appendicitis such as free right lower quadrant fluid or perienteric fat stranding. Intraperitoneal space: Unremarkable. No free air. No significant fluid collection. Vasculature: The IVC and aorta have a normal appearance. Lymph nodes: No enlarged lymph nodes. Urinary bladder: The bladder is decompressed. There is circumferential bladder wall thickening. Reproductive: Unremarkable as visualized. Bones/joints: Bones have a normal appearance. No acute fracture or suspicious bone lesion. Soft tissues: There is a small fat containing right inguinal hernia. There is a large fat containing left inguinal hernia. IMPRESSION: 1. Obstructive right ureterolithiasis with moderate right hydronephrosis, hydroureter, and perinephric fat stranding. 2. The appendix is not visualized; however there are no ancillary findings to suggest acute appendicitis. 3. Nonobstructing left nephrolithiasis. Dictated and Authenticated by: Luna Matta MD. EXAM: CT RENAL COLIC WO CLINICAL HISTORY: R flank pain; hx stones w stent. TECHNIQUE: Imaging Protocol: Axial computed tomography images with coronal and sagittal reformatted images were created and reviewed CONTRAST MATERIAL: Intravenous: none Oral: None COMPARISON: CT CT ABDOMEN PELVIS WO from 04/30/[address] ABDOMEN PELVIS WO from 09/18/2023 FINDINGS: VISUALIZED LUNG BASES: No nodules nor pleural effusions evident. ABDOMEN: There is no ascites. LIVER: There are no obvious focal hepatic lesions evident of this noninfused study. GALLBLADDER/BILIARY: No acute gallbladder pathology. Gallbladder is not distended. No obvious calculi. CBD is not dilated. PANCREAS: No evidence of pancreatic mass nor dilatation of the pancreatic duct. SPLEEN: Spleen is not enlarged. No obvious intrasplenic lesions. ADRENALS: There is unchanged thickening of both adrenal glands again noted, unchanged from August 2023 and April 2022, consistent with relatively bilateral symmetrical adrenal hyperplasia. KIDNEYS:Nonobstructive calculi in the left kidney are again noted, unchanged. No other focal left kidney findings. There is mild right-sided hydronephrosis and hydroureter which is due to a distal right ureteral calculus at the UV junction measuring 2 mm. Quite similar to CT scan findings of August 2023. There are no additional radiopaque calculi seen in the right kidney. There are no calculi seen in the lumen of the collapsed urinary bladder. ABDOMINAL AORTA: Abdominal aorta is not enlarged. LYMPH NODES: There is no retroperitoneal nor paraaortic adenopathy. ABDOMINAL WALL: No evidence of significant anterior abdominal wall nor inguinal hernia. GI: There is no evidence of bowel obstruction, free air, nor abscess. PELVIS: LYMPH NODES: There is no intrapelvic nor inguinal adenopathy. GI: No evidence of appendicitis.No evidence of sigmoid diverticulitis. URINARY BLADDER: As above REPRODUCTIVE: Prostate size upper normal. OSSEOUS: No significant osseous lesions. Mild degenerative anterolisthesis L4 upon L5 related to facet arthropathy. There is no disc space narrowing at this level. IMPRESSION: 1. There is a small 2 mm calculus in the distal right ureter just above the right ureterovesical junction with mild hydronephrosis and hydroureter above this level. No additional radiopaque calculi seen in the right kidney. There are nonobstructive calculi again noted in the left kidney. The above right- sided findings are quite similar to what occurred on CT scan of September 18, 2023 2. Bilateral symmetrical adrenal hyperplasia again noted. This is unchanged from CT scans listed above. Report called by myself to ER provider 08/03/2025 at 9:53 p.m. Lab Data Lab results reviewed: Yes I reviewed the patient's lab results. Labs: 08/03/25 21:28 Blood Blood Culture - Pending 08/03/25 20:48 Blood Blood Culture - Pending Laboratory Tests Range/Units 08/03/25 20:38 WBC (4.4-10.8) 10^3/uL 8.69 RBC (4.36-5.78) 10^6/uL 5.21 Hgb (13.5-17.5) g/dL 16.1 Hct (40.0-50.0) % 46.6 MCV (80-95) fL 89 MCH (27.0-33.0) pg 30.9 MCHC (32.0-36.0) % 34.5 RDW (11.8-14.1) % 11.7 L Plt Count (130-400) 10^3/uL 282 MPV (8.0-11.0) fL 9.4 Immature Gran % % 0.6 Neutrophils % % 76.0 Lymphocytes % % 11.9 Monocytes % % 9.1 Eosinophils % % 2.1 Basophils % % 0.3 Nucleated RBC % (0.0-0.3) % 0.0 Absolute Neutrophils (1.2-6.7) 10^3/uL 6.61 Absolute Lymphocytes (1.2-3.4) 10^3/uL 1.03 L Absolute Monocytes (0.1-0.8) 10^3/uL 0.79 Absolute Eosinophils (0.0-0.7) 10^3/uL 0.18 Absolute Basophils (0.0-0.2) 10^3/uL 0.03 VBG Lactate (<or=2.0) mmol/L 1.3 Sodium (136-145) mmol/L 141 Potassium (3.5-5.1) mmol/L 3.7 Chloride (98-107) mmol/L 103 Carbon Dioxide (21.0-32.0) mmol/L 31.6 Anion Gap (3-11) mmol/L 6.4 BUN (7-18) mg/dL 14 Creatinine (0.70-1.30) mg/dL 1.2 Est GFR (CKD-EPI 2020) (mL/min/1.73m2) 70.53 Glucose (74-106) mg/dL 112 H Calcium (8.5-10.1) mg/dL 9.7 Total Bilirubin (0.2-1.0) mg/dL 0.6 AST (15-37) U/L 19 ALT (16-63) U/L 21 Alkaline Phosphatase (46-116) U/L 134 H Total Protein (6.4-8.2) g/dL 7.6 Albumin (3.4-5.0) g/dL 4.3 Lipase (<78) U/L 55 Urine Color (Yellow) Yellow Urine Clarity (Clear) Clear Urine pH (5-8) 5.5 Ur Specific [place] (1.005-1.025) 1.025 Urine Protein (Neg-Trace) mg/dL Negative Urine Ketones (Negative) mg/dL Negative Urine Blood (Negative) Large H Urine Nitrite (Negative) Negative Urine Bilirubin (Negative) Negative Urine Urobilinogen (Up to 0.2) mg/dL 0.2 Ur Leukocyte Esterase (Negative) Negative Urine RBC (0-2) HPF 20-50 H Urine WBC (0-5) HPF Negative Ur Epithelial Cells (Negative) HPF Rare Urine Crystals (Negative) HPF Negative Urine Bacteria (Negative) HPF Negative Urine Mucus (Negative) Heavy Ur Culture Indicated? No Urine Glucose (Negative) mg/dL Negative PFSH All Active Problems (Updated 08/04/25 @ 14:27 by Kortney Escobar DPM) Calculus of distal right ureter (Acute) Follow up (Acute) Fracture of distal phalanx of right great toe (Acute) Edema (Acute) Displaced fracture of right great toe (Acute) PTSD (post-traumatic stress disorder) (Acute) Per pt. announce self if patient is asleep before touching Right ankle pain (Acute) Left elbow pain (Acute) Pain in right wrist (Acute) Open fracture of great toe of right foot (Acute) Dermatitis (Acute 01/17/18) Depression (Chronic) Carpal tunnel syndrome of right wrist (Acute) Trigger finger of right hand (Acute) Normal colonoscopy (Acute ~04/07/22) Migraines (Chronic) Managed by OR Medical History Kidney stones, calcium oxalate Left ureteral stone History of broken leg Acute medial meniscus tear of right knee (~05/2021) Pain in right hand Surgical History History of colonoscopy (~04/07/22) History of open reduction and internal fixation (ORIF) procedure right middle finger 04/03/23: Right index finger, per pt. -BR History of incision and drainage right hand Hemorrhoidectomy (07/23/18) thrombosed,gangrenous Family History Mother , AGE 86 No problems noted. Father Cancer of neck Brother No problems noted. Sister No problems noted. Social History Smoking/Tobacco Use Status: Former Tobacco Use tobacco type: cigarettes Quit Date: 11/26/12 Tobacco: How many years used: 11 Second Hand Exposure: Yes Smoking risk assessment performed?: Yes Alcohol Intake: current Alcohol Intake frequency: holidays/special occasions only Alcohol type: beer Drug use: Never Substance use type: does not use Adopted: No Caregiver/Support person: No Household members: none Housing: house Number of Children: 0 number of grandchildren: 0 Communication Needs: None Education Level: high school Details: 12th grade Do you need help understanding health information?: Rarely 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[employer]- [employer] Pets and animals: No Sexually active: Yes Do you think of yourself as: straight/heterosexual Current gender identity: male What is your relationship status?: never How often do you talk on the phone with friends or family?: once per week How often do you get together with friends or relatives?: once per week How often do you attend uatsdin or religion services?: 1-3 times per year Do you belong to any clubs or organized social groups?: no Panel score (0-1 are the most socially isolated patients): 0 NHANES result reviewed/action taken: Yes What type of physical activity do you participate in: other 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
[2025-08-03 20:41] VITALS: BP 129/83; PULSE 74; RESP 18; TEMP 36.7; O2SAT 98
[2025-08-03 20:47] LABS: Abs Immature Grans 0.05 10^3/uL (0.0-0.06); HCT 46.6 % (40.0-50.0); HGB 16.1 g/dL (13.5-17.5); Immature Grans % 0.6 %; MCH 30.9 pg (27.0-33.0); MCHC 34.5 % (32.0-36.0); MCV 89 fL (80-95); MPV 9.4 fL (8.0-11.0); Platelet Count 282 10^3/uL (130-400); RBC 5.21 10^6/uL (4.36-5.78); RDW 11.7 % (11.8-14.1); RDW-SD 38.0 fL; WBC 8.69 10^3/uL (4.4-10.8)
[2025-08-03] MEDS: Ketorolac 15 MG/ML VIAL IVP (20:55)
[2025-08-03] MEDS: ACETAMINOPHEN 1,000 MG/100 ML BAG 400 MG IVPB (20:55)
[2025-08-03] MEDS: Ondansetron 4 MG/2 ML VIAL IVP (20:55)
[2025-08-03] MEDS: Normal Saline 1,000 ML 1000 ML IV (20:55)
[2025-08-03 21:02] LABS: Glucose Negative (Negative)
[2025-08-03 21:04] LABS: ALT 21 U/L (16-63); AST 19 U/L (15-37); Albumin 4.3 g/dL (3.4-5.0); Alkaline Phosphatase 134 U/L (46-116); Anion Gap 6.4 mmol/L (3-11); BUN 14 mg/dL (7-18); Bilirubin, Total 0.6 mg/dL (0.2-1.0); CO2 31.6 mmol/L (21.0-32.0); Calcium 9.7 mg/dL (8.5-10.1); Chloride 103 mmol/L (98-107); Estimated GFR 70.53 (mL/min/1.73m2); Glucose 112 mg/dL (74-106); Lipase 55 U/L (<78); Potassium 3.7 mmol/L (3.5-5.1); Sodium 141 mmol/L (136-145); Total Protein 7.6 g/dL (6.4-8.2)
[2025-08-03 21:10] LABS: C & S Indicated? No; RBC 20-50 HPF (0-2); WBC Negative HPF (0-5)
[2025-08-03] MEDS: Tamsulosin 0.4 MG CAPCR PO (21:27)
[2025-08-03] MEDS: oxyCODONE 5 MG TAB PO (21:50)
[2025-08-03] MEDS: Ketorolac 10 MG TAB PO (21:50)
--- NOTE | 2025-08-03 22:05 | DI.VRAD_ITS ---
PROCEDURE INFORMATION: Exam: CT Abdomen And Pelvis Without Contrast Exam date and time: 08/03/2025 8:50 PM Age: 55 years old Clinical indication: R flank pain; HX stones w stent TECHNIQUE: Imaging protocol: Computed tomography of the abdomen and pelvis without contrast. Radiation optimization: All CT scans at this facility use at least one of these dose optimization techniques: automated exposure control; mA and/or kV adjustment per patient size (includes targeted exams where dose is matched to clinical indication); or iterative reconstruction. COMPARISON: CT ABDOMEN PELVIS WO 09/18/2023 6:57 AM FINDINGS: Lungs: Lung bases are clear. Liver: The liver has a normal appearance. Gallbladder and biliary ducts: The gallbladder is unremarkable. No biliary ductal dilatation. Pancreas: The pancreas demonstrates normal size. No pancreatic ductal dilatation. Spleen: The spleen demonstrates normal size. Adrenal glands: Normal. No mass. Kidneys and ureters: The right kidney is moderately enlarged. There is moderate right perinephric fat stranding. There is moderate right hydronephrosis and hydroureter. There is a 2 mm calculus within the distal right ureter (series 3/image 88). The left kidney is normal size. There is a nonobstructing left 5 mm midpole calculus. No left hydronephrosis, hydroureter, or ureterolithiasis. Stomach and bowel: The bowel demonstrates overall normal caliber and wall thickness. Appendix: The appendix is not visualized; however there are no ancillary findings to suggest acute appendicitis such as free right lower quadrant fluid or perienteric fat stranding. Intraperitoneal space: Unremarkable. No free air. No significant fluid collection. Vasculature: The IVC and aorta have a normal appearance. Lymph nodes: No enlarged lymph nodes. Urinary bladder: The bladder is decompressed. There is circumferential bladder wall thickening. Reproductive: Unremarkable as visualized. Bones/joints: Bones have a normal appearance. No acute fracture or suspicious bone lesion. Soft tissues: There is a small fat containing right inguinal hernia. There is a large fat containing left inguinal hernia. IMPRESSION: 1. Obstructive right ureterolithiasis with moderate right hydronephrosis, hydroureter, and perinephric fat stranding. 2. The appendix is not visualized; however there are no ancillary findings to suggest acute appendicitis. 3. Nonobstructing left nephrolithiasis. Dictated and Authenticated by: Luna Matta MD. Orderin Gabriella Richards MD
[2025-08-03 22:45] VITALS: BP 126/80; PULSE 72; RESP 18; O2SAT 98
== END 2025-08-03 22:45 | disposition home or self-care (01) ==
PROVIDERS: Emergency Provider Physician Assistant; PCP Nurse Practitioner Family
DX: N20.1 Calculus of ureter (principal)
CPT/HCPCS: 36415; 80053; 83690; 87040; 96361; 96365; 96375; 99284; 74176; 81003; 81015; 83605; 85025; J0131; J1885; J2405

== ENCOUNTER 2025-08-04 11:05 | Outpatient (CLI) | payer BC, SELFPAY ==
--- NOTE | 2025-08-04 06:45 | DI.RAD_ITS ---
Exam(s) XR TOE RT GREAT XR FOOT RT COMPLETE EXAM: XR FOOT RT COMPLETE CLINICAL HISTORY: ? Any other displacement? ? midfoot,fx rt great toe,edema,s92.401b,s92.401a. TECHNIQUE: 2D digital imaging was performed. Three views of the foot. Three views of the great toe. COMPARISON: CR XR TOE RT GREAT from 08/04/2025 FINDINGS: BONES: There is a fracture at the tuft arm with displacement of several millimeters. There is additional fracture at the lateral corner of the base of the distal phalanx of the great toe. There is involvement of the articular surface but no significant separation. No bony destructive lesion is seen. JOINTS: No dislocation present. There is prominent spurring at the talonavicular and calcaneal cuboid joints. Also prominent spurring at the talar calcaneal joint. SOFT TISSUE: Normal. IMPRESSION: Fractures at the tuft and lateral base of the distal phalanx. Degenerative changes of the the talonavicular and calcaneal cuboid joints. DATA REPOSITORY: RADIATION DOSE DELIVERED:
== END 2025-08-04 11:25 ==
PROVIDERS: PCP Nurse Practitioner Family; Visit Provider Podiatrist
DX: S92.421A Displaced fracture of distal phalanx of right great toe, initial encounter for closed fracture (principal); X58.XXXA Exposure to other specified factors, initial encounter
CPT/HCPCS: 73630; 73660

== ENCOUNTER 2025-08-18 00:51 | Outpatient (CLI) | payer BC, SELFPAY ==
--- NOTE | 2025-08-18 06:00 | DI.RAD_ITS ---
Exam(s) XR TOE RT GREAT EXAM: XR TOE RT GREAT CLINICAL HISTORY: ? Healing,? Infected,FX DISTAL PHALANX RT GREAT TOE,S92.421A. TECHNIQUE: 2D digital imaging was performed. COMPARISON: CR XR FOOT RT COMPLETE from 08/04/2025 FINDINGS: BONES: There is stable alignment of the fracture of the tuft of the distal phalanx of the great toe as well as the fracture at the lateral base of the distal phalanx. No bony destructive lesion is seen. JOINTS: No dislocation present. SOFT TISSUE: Normal. IMPRESSION: Stable fracture alignment. No significant increase in healing. DATA REPOSITORY: RADIATION DOSE DELIVERED:
== END 2025-08-18 01:11 ==
PROVIDERS: PCP Nurse Practitioner Family; Visit Provider Podiatrist
DX: S92.421A Displaced fracture of distal phalanx of right great toe, initial encounter for closed fracture (principal); X58.XXXA Exposure to other specified factors, initial encounter
CPT/HCPCS: 73660

== ENCOUNTER 2025-09-09 00:13 | Outpatient (CLI) | payer OTHER, SELFPAY ==
--- NOTE | 2025-09-09 13:03 | DI.RAD_ITS ---
Exam(s) XR TOE RT GREAT EXAM: XR TOE RT GREAT CLINICAL HISTORY: Pain in right great toe,fx distal phalanx rt great toe,displaced fx rt. TECHNIQUE: 2D digital imaging was performed. Three images were obtained. COMPARISON: CR XR TOE RT GREAT from 08/18/2025 FINDINGS: BONES: There has been no change in alignment of the fractures involving the distal phalanx of the great toe. There is no new fracture present. No bony destructive lesion is seen. JOINTS: No dislocation present. SOFT TISSUE: Mild soft tissue swelling of the great toe is noted. IMPRESSION: Stable alignment of the fractures involving the distal phalanx of the great toe. DATA REPOSITORY: RADIATION DOSE DELIVERED:
== END 2025-09-09 00:33 ==
PROVIDERS: PCP Nurse Practitioner Family; Visit Provider Podiatrist
DX: S92.421A Displaced fracture of distal phalanx of right great toe, initial encounter for closed fracture (principal)
CPT/HCPCS: 73660

== ENCOUNTER → 2025-10-14 02:13 | Outpatient (CLI) | payer OTHER, SELFPAY ==
--- NOTE | 2025-10-14 07:45 | DI.RAD_ITS ---
Exam(s) XR TOE RT GREAT EXAM: XR TOE RT GREAT CLINICAL HISTORY: Healing?, FX OF DISTAL PHALANX OF R GREAT TOE S92.421A. TECHNIQUE: 2D digital imaging was performed. Three views. COMPARISON: CR XR TOE RT GREAT from 09/09/2025 FINDINGS: BONES: Stable alignment of fracture at the tuft and lateral base of the distal phalanx of the great toe. No new abnormalities. No bony destructive lesion is seen. JOINTS: No dislocation present. Degenerative changes with prominent spurring are noted at noted at the talocalcaneal joint. SOFT TISSUE: Normal. IMPRESSION: Stable fracture alignment. DATA REPOSITORY: RADIATION DOSE DELIVERED:
== END ==
LOC: DI 02:13
PROVIDERS: PCP Nurse Practitioner Family; Visit Provider Podiatrist
DX: S92.421D Displaced fracture of distal phalanx of right great toe, subsequent encounter for fracture with routine healing (principal); X58.XXXD Exposure to other specified factors, subsequent encounter
CPT/HCPCS: 73660